=== PATIENT | female | born 1945 | race Caucasian/White ===

== ENCOUNTER → 2017-02-09 | Outpatient (REF) | payer MEDICARE ==
[2017-02-09 16:50] LABS: BASO % 0.8 % (0.0-1.0); EOS # 0.4 K/mm3 (0.0-0.50); EOS % 6.3 % (0.0-3.0); LARGE UNSTAINED CELL # 0.2 K/mm3 (0.0-0.4); LARGE UNSTAINED CELL % 2.5 % (0.0-4.0); LYMPH # 2.1 K/mm3 (1.5-4.5); LYMPH % 31.5 % (24.0-44.0); MEAN CORPUSCULAR HEMOGLOBIN 32.6 pg (27.0-33.0); MEAN CORPUSCULAR HGB CONC 33.6 g/dl (32.0-36.5); MEAN CORPUSCULAR VOLUME 96.9 fl (80.0-96.0); MONO # 0.4 K/mm3 (0.0-0.8); NEUTROPHILS # 3.2 K/mm3 (1.8-7.7); NEUTROPHILS % 51.8 % (36.0-66.0); PLATELET COUNT, AUTOMATED 288 k/mm3 (150-450); RED CELL DISTRIBUTION WIDTH 12.7 % (11.5-14.5); WHITE BLOOD COUNT 6.2 K/mm3 (4.0-10.0)
[2017-02-09 19:04] LABS: ALBUMIN 3.9 GM/DL (3.2-5.2); ALBUMIN/GLOBULIN RATIO 1.5 (1.00-1.93); BILIRUBIN,TOTAL 0.7 MG/DL (0.2-1.0); CALCIUM LEVEL 9.2 MG/DL (8.8-10.2); CREATININE FOR GFR 1.39 MG/DL (0.55-1.02); FREE T4 1.42 NG/DL (0.76-1.46); POTASSIUM SERUM 4.1 MEQ/L (3.5-5.1); TOTAL PROTEIN 6.5 GM/DL (6.4-8.2)
== END ==
LOC: M SFHCCAPE 07:11
PROVIDERS: ATTEND Physician Assistant
DX: E11.9 Type 2 diabetes mellitus without complications (principal); E03.9 Hypothyroidism, unspecified

== ENCOUNTER → 2017-03-09 | Outpatient (REF) | payer MEDICARE ==
[2017-03-09 18:12] LABS: ALBUMIN 3.9 GM/DL (3.2-5.2); ALBUMIN/GLOBULIN RATIO 1.39 (1.00-1.93); BILIRUBIN,TOTAL 0.8 MG/DL (0.2-1.0); CALCIUM LEVEL 9.4 MG/DL (8.8-10.2); CREATININE FOR GFR 1.36 MG/DL (0.55-1.02); POTASSIUM SERUM 3.9 MEQ/L (3.5-5.1); TOTAL PROTEIN 6.7 GM/DL (6.4-8.2)
== END ==
LOC: M SFHCCAPE 09:51
PROVIDERS: ATTEND Physician Assistant
DX: E11.9 Type 2 diabetes mellitus without complications (principal)

== ENCOUNTER → 2017-06-15 | Outpatient (REF) | payer MEDICARE ==
[2017-06-15 18:02] LABS: ALBUMIN 3.9 GM/DL (3.2-5.2); ALBUMIN/GLOBULIN RATIO 1.3 (1.00-1.93); CALCIUM LEVEL 9.9 MG/DL (8.8-10.2); CREATININE FOR GFR 1.37 MG/DL (0.55-1.02); FREE T4 1.33 NG/DL (0.76-1.46); GLOMERULAR FILTRATION RATE 40.7 (>45); POTASSIUM SERUM 4.4 MEQ/L (3.5-5.1); TOTAL PROTEIN 6.9 GM/DL (6.4-8.2)
== END ==
LOC: M SFHCCAPE 07:30
PROVIDERS: ATTEND Physician Assistant
DX: E11.8 Type 2 diabetes mellitus with unspecified complications (principal); E03.9 Hypothyroidism, unspecified; E78.2 Mixed hyperlipidemia

== ENCOUNTER 2017-08-12 18:10 | Emergency (ER) | payer MEDICARE ==
[2017-08-12] MEDS ORDERED: NS 1,000 ML IV ONE (18:30)
[2017-08-12] MEDS ORDERED: ONDANSETRON 4MG/2ML VIAL (J2405) IV ONE (18:30)
[2017-08-12 18:32] LABS: BASO # 0.1 10^3/uL (0.0-0.2); BASO % 0.6 % (0.0-1.0); EOS # 0.4 10^3/uL (0.0-0.50); EOS % 4.6 % (0.0-3.0); IMMATURE GRANULOCYTE % 0.2 % (0-0); LYMPH # 1.9 10^3/uL (1.5-4.5); LYMPH % 20.9 % (24.0-44.0); MEAN CORPUSCULAR HGB CONC 33.4 g/dl (32.0-36.5); MEAN CORPUSCULAR VOLUME 95.7 fl (80.0-96.0); MONO # 0.7 10^3/uL (0.0-0.8); MONO % 7.8 % (0.0-5.0); NEUTROPHILS # 5.8 10^3/uL (1.8-7.7); NEUTROPHILS % 65.9 % (36.0-66.0); PLATELET COUNT, AUTOMATED 270 10^3/uL (150-450); RED CELL DISTRIBUTION WIDTH 13.2 % (11.5-14.5); WHITE BLOOD COUNT 8.9 10^3/uL (4.0-10.0)
[2017-08-12] MEDS ORDERED: LEVO125T4 PO (18:40)
[2017-08-12] MEDS ORDERED: ASPI1TAB PO (18:40)
[2017-08-12] MEDS ORDERED: GLUC500C5 PO (18:40)
[2017-08-12] MEDS ORDERED: CYCL5TAB PO (18:40)
[2017-08-12] MEDS ORDERED: HYDR12.55 PO (18:40)
[2017-08-12] MEDS ORDERED: GLIP-163 PO (18:40)
[2017-08-12] MEDS ORDERED: SIMV40TA2 PO (18:40)
[2017-08-12] MEDS ORDERED: MAGN400C2 PO (18:40)
[2017-08-12] MEDS ORDERED: METF500T13 PO (18:40)
[2017-08-12] MEDS ORDERED: CALC600T57 PO (18:40)
[2017-08-12] MEDS ORDERED: QUIN5TAB7 PO (18:40)
[2017-08-12 18:58] LABS: ALBUMIN 3.6 GM/DL (3.2-5.2); ALBUMIN/GLOBULIN RATIO 1.33 (1.00-1.93); ALKALINE PHOSPHATASE 49 U/L (45-117); ALT/SGPT 28 U/L (12-78); ANION GAP 8 MEQ/L (8-16); AST/SGOT 28 U/L (7-37); BILIRUBIN,DIRECT 0.2 MG/DL (0.0-0.2); BILIRUBIN,TOTAL 0.5 MG/DL (0.2-1.0); BLOOD UREA NITROGEN 24 MG/DL (7-18); CALCIUM LEVEL 8.9 MG/DL (8.8-10.2); CARBON DIOXIDE LEVEL 29 MEQ/L (21-32); CHLORIDE LEVEL 106 MEQ/L (98-107); CREATININE FOR GFR 1.36 MG/DL (0.55-1.02); GLUCOSE, FASTING 198 MG/DL (80-110); POTASSIUM SERUM 3.8 MEQ/L (3.5-5.1); SODIUM LEVEL 143 MEQ/L (136-145); TOTAL PROTEIN 6.3 GM/DL (6.4-8.2)
[2017-08-12 19:12] VITALS: BP 148/74
--- NOTE | 2017-08-13 06:15 | ECGEPIP ---
Stationary ECG Study [facility] - ED Test Date: 2017-08-12 Pat Name: ADA NGUYEN Department: Room: - Gender: F Gynecological Assistant: BUD : 1945 Requested By: WATSON GABRIEL Order Number: [id number] Reading MD: Arnold Acosta Measurements Intervals [place] Rate: 70 P: 42 IN: 205 QRS: 11 QRSD: 94 T: 10 QT: 403 QTc: 435 Interpretive Statements SINUS RHYTHM NO PRIORS FOR COMPARISON Electronically Signed On 08-13-2017 6:15:18 EST by Arnold Acosta
== END 2017-08-12 19:27 | disposition home or self-care (01) ==
LOC: M ED 18:10 → EDBD 18:10 → M ED 19:27
DX: E11.65 Type 2 diabetes mellitus with hyperglycemia (principal); I10 Essential (primary) hypertension; Z79.82 Long term (current) use of aspirin; Z79.52 Long term (current) use of systemic steroids; Z79.899 Other long term (current) drug therapy; Z88.8 Allergy status to other drugs, medicaments and biological substances; Z88.5 Allergy status to narcotic agent; Z88.1 Allergy status to other antibiotic agents; Z88.2 Allergy status to sulfonamides
CPT/HCPCS: 80048; 80076; 82550; 82553; 84443; 84484; 85025; 93005; 93041; 94760; 96374; 99284; J2405

== ENCOUNTER → 2017-09-27 | Outpatient (REF) | payer MEDICARE ==
[2017-09-27 17:05] LABS: BASO # 0.1 10^3/uL (0.0-0.2); BASO % 0.7 % (0.0-1.0); EOS # 0.5 10^3/uL (0.0-0.50); HEMATOCRIT 39.8 % (36.0-47.0); HEMOGLOBIN 13.2 g/dl (12.0-16.0); IMMATURE GRANULOCYTE % 0.3 % (0-0); LYMPH % 26.6 % (24.0-44.0); MEAN CORPUSCULAR HEMOGLOBIN 31.6 pg (27.0-33.0); MEAN CORPUSCULAR HGB CONC 33.2 g/dl (32.0-36.5); MEAN CORPUSCULAR VOLUME 95.2 fl (80.0-96.0); MONO # 0.5 10^3/uL (0.0-0.8); MONO % 7.2 % (0.0-5.0); NEUTROPHILS # 4.4 10^3/uL (1.8-7.7); NEUTROPHILS % 59.2 % (36.0-66.0); PLATELET COUNT, AUTOMATED 317 10^3/uL (150-450); RED BLOOD COUNT 4.18 10^6/uL (4.00-5.40); RED CELL DISTRIBUTION WIDTH 12.6 % (11.5-14.5); WHITE BLOOD COUNT 7.5 10^3/uL (4.0-10.0)
[2017-09-27 17:10] LABS: ALBUMIN 3.9 GM/DL (3.2-5.2); ALKALINE PHOSPHATASE 51 U/L (45-117); ALT/SGPT 22 U/L (12-78); ANION GAP 8 MEQ/L (8-16); AST/SGOT 23 U/L (7-37); BILIRUBIN,TOTAL 0.9 MG/DL (0.2-1.0); BLOOD UREA NITROGEN 23 MG/DL (7-18); CALCIUM LEVEL 9.1 MG/DL (8.8-10.2); CARBON DIOXIDE LEVEL 29 MEQ/L (21-32); CHLORIDE LEVEL 103 MEQ/L (98-107); CHOLESTEROL LEVEL 115 MG/DL (<200); CHOLESTEROL RISK RATIO 2.129 (<5); FREE T4 1.65 NG/DL (0.76-1.46); GLOMERULAR FILTRATION RATE 47.3 (>39); GLUCOSE, FASTING 142 MG/DL (83-110); HDL CHOLESTEROL 54 MG/DL (>40); LDL CHOLESTEROL 39.6 MG/DL (<100); NON-HDL-C 61 MG/DL; POTASSIUM SERUM 4.1 MEQ/L (3.5-5.1); SODIUM LEVEL 140 MEQ/L (136-145); TOTAL PROTEIN 6.9 GM/DL (6.4-8.2); TRIGLYCERIDES LEVEL 107 MG/DL (<150)
[2017-09-27 17:29] LABS: ESTIMATED AVERAGE GLUCOSE 131 MG/DL (60-110); HEMOGLOBIN A1c 6.2 %
[2017-09-27 19:21] LABS: MAU/CREAT RATIO 52.6 MCG/MG (0.0-30.0)
== END ==
LOC: M SFHCCAPE 08:25
DX: I10 Essential (primary) hypertension (principal); E78.2 Mixed hyperlipidemia; E03.9 Hypothyroidism, unspecified; E11.8 Type 2 diabetes mellitus with unspecified complications
CPT/HCPCS: 84443

== ENCOUNTER → 2017-11-17 | Outpatient (REF) | payer MEDICARE ==
[2017-11-17 17:17] LABS: FREE T4 1.09 NG/DL (0.76-1.46)
== END ==
LOC: M SFHCCAPE 08:43
DX: E03.9 Hypothyroidism, unspecified (principal)
CPT/HCPCS: 84443

== ENCOUNTER → 2017-12-27 | Outpatient (REF) | payer MEDICARE ==
[2017-12-27 18:27] LABS: ESTIMATED AVERAGE GLUCOSE 134 MG/DL (60-110); HEMOGLOBIN A1c 6.3 %
[2017-12-27 18:44] LABS: ALBUMIN 3.8 GM/DL (3.2-5.2); ALBUMIN/GLOBULIN RATIO 1.23 (1.00-1.93); ALKALINE PHOSPHATASE 58 U/L (45-117); ALT/SGPT 24 U/L (12-78); ANION GAP 8 MEQ/L (8-16); AST/SGOT 27 U/L (7-37); BILIRUBIN,TOTAL 0.8 MG/DL (0.2-1.0); BLOOD UREA NITROGEN 26 MG/DL (7-18); CALCIUM LEVEL 9.3 MG/DL (8.8-10.2); CARBON DIOXIDE LEVEL 27 MEQ/L (21-32); CHLORIDE LEVEL 109 MEQ/L (98-107); FREE T4 1.25 NG/DL (0.76-1.46); GLOMERULAR FILTRATION RATE 39.6 (>39); GLUCOSE, FASTING 133 MG/DL (70-100); POTASSIUM SERUM 4.5 MEQ/L (3.5-5.1); SODIUM LEVEL 144 MEQ/L (136-145); TOTAL PROTEIN 6.9 GM/DL (6.4-8.2)
== END ==
LOC: M SFHCCAPE 08:39
DX: I10 Essential (primary) hypertension (principal); E03.9 Hypothyroidism, unspecified; E11.8 Type 2 diabetes mellitus with unspecified complications
CPT/HCPCS: 84443

== ENCOUNTER → 2018-07-04 | Outpatient (REF) | payer MEDICARE ==
[2018-07-05 17:12] LABS: BASO # 0.1 10^3/uL (0.0-0.2); BASO % 0.9 % (0.0-1.0); EOS # 0.3 10^3/uL (0.0-0.50); EOS % 5.1 % (0.0-3.0); HEMOGLOBIN 13.8 g/dl (12.0-15.5); IMMATURE GRANULOCYTE % 0.3 % (0-3.0); LYMPH # 2.3 10^3/uL (1.5-4.5); LYMPH % 34.1 % (24.0-44.0); MEAN CORPUSCULAR HEMOGLOBIN 32.1 pg (27.0-33.0); MEAN CORPUSCULAR HGB CONC 32.9 g/dl (32.0-36.5); MEAN CORPUSCULAR VOLUME 97.7 fl (80.0-96.0); MONO # 0.5 10^3/uL (0.0-0.8); NEUTROPHILS # 3.4 10^3/uL (1.8-7.7); NEUTROPHILS % 51.6 % (36.0-66.0); PLATELET COUNT, AUTOMATED 306 10^3/uL (150-450); WHITE BLOOD COUNT 6.6 10^3/uL (4.0-10.0)
[2018-07-05 17:27] LABS: ALBUMIN 3.9 GM/DL (3.2-5.2); ALKALINE PHOSPHATASE 56 U/L (45-117); ALT/SGPT 28 U/L (12-78); ANION GAP 7 MEQ/L (8-16); AST/SGOT 22 U/L (7-37); BILIRUBIN,TOTAL 0.8 MG/DL (0.2-1.0); BLOOD UREA NITROGEN 28 MG/DL (7-18); CALCIUM LEVEL 9.5 MG/DL (8.8-10.2); CARBON DIOXIDE LEVEL 29 MEQ/L (21-32); CHLORIDE LEVEL 106 MEQ/L (98-107); CHOLESTEROL LEVEL 138 MG/DL (<200); CHOLESTEROL RISK RATIO 2.464 (<5); CREATININE FOR GFR 1.39 MG/DL (0.55-1.30); FREE T4 1.14 NG/DL (0.76-1.46); GLOMERULAR FILTRATION RATE 39.9 (>39); GLUCOSE, FASTING 133 MG/DL (70-100); HDL CHOLESTEROL 56 MG/DL (>40); LDL CHOLESTEROL 57 MG/DL (<100); NON-HDL-C 82 MG/DL; POTASSIUM SERUM 4.6 MEQ/L (3.5-5.1); SODIUM LEVEL 142 MEQ/L (136-145); TOTAL PROTEIN 6.9 GM/DL (6.4-8.2); TRIGLYCERIDES LEVEL 124 MG/DL (<150)
[2018-07-05 17:34] LABS: ESTIMATED AVERAGE GLUCOSE 128 MG/DL (60-110); HEMOGLOBIN A1c 6.1 %
== END ==
LOC: M SFHCCAPE 08:29
DX: E03.9 Hypothyroidism, unspecified (principal); I10 Essential (primary) hypertension; E11.8 Type 2 diabetes mellitus with unspecified complications; E78.2 Mixed hyperlipidemia
CPT/HCPCS: 84443

== ENCOUNTER → 2018-07-11 | Outpatient (REF) | payer MEDICARE | LOC: M SFHCCAPE 07-12 07:09 | DX: R19.7 Diarrhea, unspecified (principal) | CPT/HCPCS: 82705 ==

== ENCOUNTER → 2018-07-15 | Outpatient (CLI) | payer MEDICARE ==
[~2018-07-15] MED LIST: GASTROGRAFIN SOLUTION 30ML (Q9963) As Ordered; ISOVUE-370 76% 100ML VIAL (Q9967) As Ordered
== END ==
LOC: M RAD 15:39
DX: R19.7 Diarrhea, unspecified (principal); R10.31 Right lower quadrant pain; N28.1 Cyst of kidney, acquired
CPT/HCPCS: Q9963

== ENCOUNTER → 2018-07-18 | Outpatient (REF) | payer MEDICARE ==
[2018-07-18 16:50] LABS: ALBUMIN 3.8 GM/DL (3.2-5.2); ALBUMIN/GLOBULIN RATIO 1.36 (1.00-1.93); ALKALINE PHOSPHATASE 52 U/L (45-117); ALT/SGPT 32 U/L (12-78); ANION GAP 8 MEQ/L (8-16); AST/SGOT 26 U/L (7-37); BILIRUBIN,TOTAL 0.6 MG/DL (0.2-1.0); BLOOD UREA NITROGEN 23 MG/DL (7-18); CALCIUM LEVEL 9.5 MG/DL (8.8-10.2); CARBON DIOXIDE LEVEL 29 MEQ/L (21-32); CHLORIDE LEVEL 103 MEQ/L (98-107); CREATININE FOR GFR 1.42 MG/DL (0.55-1.30); GLOMERULAR FILTRATION RATE 38.9 (>39); GLUCOSE, FASTING 227 MG/DL (70-100); POTASSIUM SERUM 4.5 MEQ/L (3.5-5.1); SODIUM LEVEL 140 MEQ/L (136-145); TOTAL PROTEIN 6.6 GM/DL (6.4-8.2)
== END ==
LOC: M SFHCCAPE 09:39
DX: N18.3 Chronic kidney disease, stage 3 (moderate) (principal)
CPT/HCPCS: 80053

== ENCOUNTER → 2018-08-01 | Outpatient (CLI) | payer MEDICARE | LOC: M WHC 11:04 | DX: Z12.31 Encounter for screening mammogram for malignant neoplasm of breast (principal) | CPT/HCPCS: 77067 ==

== ENCOUNTER → 2018-10-31 | Outpatient (REF) | payer MEDICARE ==
[~2018-10-31] MED LIST changes: +ASPI1TAB PO; +CALC600T57 PO; +CYCL5TAB PO; -GASTROGRAFIN SOLUTION 30ML (Q9963) As Ordered; +GLIP-163 PO; +GLUC500C5 PO; +HYDR12.55 PO; -ISOVUE-370 76% 100ML VIAL (Q9967) As Ordered; +LEVO125T4 PO; +MAGN400C2 PO; +METF500T13 PO; +QUIN1TAB PO; +SIMV40TA2 PO
[2018-10-31 18:44] LABS: BASO # 0.1 10^3/uL (0.0-0.2); EOS # 0.4 10^3/uL (0.0-0.50); HEMATOCRIT 41.3 % (36.0-47.0); HEMOGLOBIN 13.5 g/dl (12.0-15.5); LYMPH % 34.7 % (24.0-44.0); MEAN CORPUSCULAR HEMOGLOBIN 32.1 pg (27.0-33.0); MEAN CORPUSCULAR HGB CONC 32.7 g/dl (32.0-36.5); MEAN CORPUSCULAR VOLUME 98.3 fl (80.0-96.0); MONO # 0.5 10^3/uL (0.0-0.8); MONO % 8.2 % (0.0-5.0); NEUTROPHILS # 2.8 10^3/uL (1.8-7.7); NEUTROPHILS % 48.9 % (36.0-66.0); PLATELET COUNT, AUTOMATED 279 10^3/uL (150-450); WHITE BLOOD COUNT 5.8 10^3/uL (4.0-10.0)
[2018-10-31 18:51] LABS: ALBUMIN 3.8 GM/DL (3.2-5.2); BILIRUBIN,TOTAL 0.8 MG/DL (0.2-1.0); CALCIUM LEVEL 9.2 MG/DL (8.8-10.2); CREATININE FOR GFR 1.33 MG/DL (0.55-1.30); GLOMERULAR FILTRATION RATE 41.9 (>39); POTASSIUM SERUM 4.2 MEQ/L (3.5-5.1); TOTAL PROTEIN 6.7 GM/DL (6.4-8.2)
== END ==
LOC: M SFHCCAPE 08:38
PROVIDERS: ATTEND Physician Assistant
DX: R19.7 Diarrhea, unspecified (principal)

== ENCOUNTER → 2019-02-06 | Outpatient (REF) | payer MEDICARE ==
[~2019-02-06] MED LIST changes: -ASPI1TAB PO; +ASPI81TA26 PO
[2019-02-06 18:45] LABS: BASO # 0.1 10^3/uL (0.0-0.2); BASO % 0.9 % (0.0-1.0); EOS # 0.7 10^3/uL (0.0-0.50); EOS % 8.6 % (0.0-3.0); HEMATOCRIT 41.3 % (36.0-47.0); HEMOGLOBIN 13.6 g/dl (12.0-15.5); LYMPH # 2.2 10^3/uL (1.5-4.5); LYMPH % 28.2 % (24.0-44.0); MEAN CORPUSCULAR HEMOGLOBIN 31.9 pg (27.0-33.0); MEAN CORPUSCULAR HGB CONC 32.9 g/dl (32.0-36.5); MEAN CORPUSCULAR VOLUME 96.9 fl (80.0-96.0); MONO # 0.6 10^3/uL (0.0-0.8); MONO % 7.2 % (0.0-5.0); NEUTROPHILS # 4.3 10^3/uL (1.8-7.7); NEUTROPHILS % 54.8 % (36.0-66.0); PLATELET COUNT, AUTOMATED 305 10^3/uL (150-450); RED BLOOD COUNT 4.26 10^6/uL (4.00-5.40); WHITE BLOOD COUNT 7.8 10^3/uL (4.0-10.0)
[2019-02-06 19:40] LABS: CREATININE, URINE 76.7 MG/DL; MALB URINE SIEMENS 20.5 MG/L; MAU/CREAT RATIO 26.7 MCG/MG (0.0-30.0)
[2019-02-06 20:25] LABS: ALBUMIN 3.8 GM/DL (3.2-5.2); BILIRUBIN,TOTAL 0.8 MG/DL (0.2-1.0); CALCIUM LEVEL 8.9 MG/DL (8.8-10.2); CHOLESTEROL RISK RATIO 2.678 (<5); CREATININE FOR GFR 1.31 MG/DL (0.55-1.30); FREE T4 1.03 NG/DL (0.76-1.46); GLOMERULAR FILTRATION RATE 42.6 (>39); POTASSIUM SERUM 4.2 MEQ/L (3.5-5.1); THYROID STIMULATING HORMONE 5.31 uIU/ML (0.358-3.740); TOTAL PROTEIN 7.2 GM/DL (6.4-8.2)
[2019-02-06 21:59] LABS: HEMOGLOBIN A1c 6.7 %
== END ==
LOC: M SFHCCAPE 08:29
PROVIDERS: ATTEND Physician Assistant
DX: E03.9 Hypothyroidism, unspecified (principal); E78.2 Mixed hyperlipidemia; E11.8 Type 2 diabetes mellitus with unspecified complications

== ENCOUNTER → 2019-04-10 | Outpatient (REF) | payer MEDICARE ==
[2019-04-10 16:59] LABS: BASO # 0.1 10^3/uL (0.0-0.2); EOS # 0.6 10^3/uL (0.0-0.50); EOS % 9.2 % (0.0-3.0); HEMATOCRIT 42.3 % (36.0-47.0); HEMOGLOBIN 14.1 g/dl (12.0-15.5); LYMPH # 2.2 10^3/uL (1.5-4.5); LYMPH % 30.9 % (24.0-44.0); MEAN CORPUSCULAR HEMOGLOBIN 32.9 pg (27.0-33.0); MEAN CORPUSCULAR HGB CONC 33.3 g/dl (32.0-36.5); MEAN CORPUSCULAR VOLUME 98.8 fl (80.0-96.0); MONO # 0.5 10^3/uL (0.0-0.8); MONO % 7.6 % (0.0-5.0); NEUTROPHILS # 3.5 10^3/uL (1.8-7.7); PLATELET COUNT, AUTOMATED 270 10^3/uL (150-450); RED BLOOD COUNT 4.28 10^6/uL (4.00-5.40)
[2019-04-10 17:06] LABS: ALBUMIN 3.8 GM/DL (3.2-5.2); BILIRUBIN,TOTAL 0.9 MG/DL (0.2-1.0); CALCIUM LEVEL 9.2 MG/DL (8.8-10.2); CHOLESTEROL RISK RATIO 2.563 (<5); CREATININE FOR GFR 1.4 MG/DL (0.55-1.30); FREE T4 1.17 NG/DL (0.76-1.46); GLOMERULAR FILTRATION RATE 39.5 (>39); POTASSIUM SERUM 4.3 MEQ/L (3.5-5.1); THYROID STIMULATING HORMONE 5.12 uIU/ML (0.358-3.740); TOTAL PROTEIN 6.9 GM/DL (6.4-8.2)
[2019-04-10 17:23] LABS: HEMOGLOBIN A1c 6.5 %
[2019-04-10 17:32] LABS: MALB URINE SIEMENS 34.2 MG/L; MAU/CREAT RATIO 28.2 MCG/MG (0.0-30.0)
== END ==
LOC: M SFHCCAPE 08:37
PROVIDERS: ATTEND Physician Assistant
DX: I10 Essential (primary) hypertension (principal); E03.9 Hypothyroidism, unspecified; E11.8 Type 2 diabetes mellitus with unspecified complications

== ENCOUNTER → 2019-04-19 | Outpatient (CLI) | payer MEDICARE ==
--- NOTE | 2019-04-19 14:31 | REP ---
Clinical: Acute bronchitis Comparison: 09/03/2010 . Technique: PA and lateral. Findings: The mediastinum and cardiac silhouette are normal. The lung rodriguez are clear and without acute consolidation, effusion, or pneumothorax. The skeletal structures are intact and normal. Impression: 1. No focal consolidation or effusion.
== END ==
LOC: M CLY 14:08
PROVIDERS: ATTEND Physician Assistant
DX: J40 Bronchitis, not specified as acute or chronic (principal)

== ENCOUNTER → 2019-07-17 | Outpatient (REF) | payer MEDICARE ==
[2019-07-17 16:44] LABS: ALBUMIN 3.8 GM/DL (3.2-5.2); BILIRUBIN,TOTAL 0.8 MG/DL (0.2-1.0); CALCIUM LEVEL 9.2 MG/DL (8.8-10.2); CREATININE FOR GFR 1.45 MG/DL (0.55-1.30); FREE T4 1.26 NG/DL (0.76-1.46); GLOMERULAR FILTRATION RATE 37.9 (>39); POTASSIUM SERUM 4.1 MEQ/L (3.5-5.1); THYROID STIMULATING HORMONE 2.81 uIU/ML (0.358-3.740); TOTAL PROTEIN 6.6 GM/DL (6.4-8.2)
[2019-07-17 16:53] LABS: HEMOGLOBIN A1c 6.9 %
== END ==
LOC: M SFHCCAPE 08:30
PROVIDERS: ATTEND Physician Assistant
DX: I10 Essential (primary) hypertension (principal); E03.9 Hypothyroidism, unspecified; E11.8 Type 2 diabetes mellitus with unspecified complications

== ENCOUNTER → 2019-08-31 | Outpatient (CLI) | payer MEDICARE ==
[~2019-08-31] MED LIST changes: -SIMV40TA2 PO; +SIMV40TA20 PO
== END ==
LOC: M WHC 11:30
PROVIDERS: ATTEND Physician Assistant
DX: Z78.0 Asymptomatic menopausal state (principal)

== ENCOUNTER → 2019-08-31 | Outpatient (CLI) | payer MEDICARE ==
--- NOTE | 2019-08-31 12:38 | REPMRS ---
Patient History The patient states she had a clinical breast exam in February 2019. No known family history of cancer. 3D TOMOSYNTHESIS WAS PERFORMED. The [facility] lifetime risk for breast cancer is 3.9%. Digital Woman Screen Mammo: August 31, 2019 - Exam #: [id number] Bilateral CC and MLO view(s) were taken. Technologist: Katie Gaxiola, Technologist Prior study comparison: August 01, 2018, bilateral digital woman screen mammo performed at [facility]. July 27, 2017, digital woman screen mammo performed at [facility]. FINDINGS: There are scattered fibroglandular densities. There has been no change in the appearance of the mammogram from the prior studies. There is a mild amount of residual fibroglandular tissue which is fairly symmetric. There is no interval development of dominant mass, architectural distortion, or clustered microcalcification suggestive of malignancy. Assessment: BI-RADS/ACR category 1 mammogram. Negative Mammogram. Recommendation Routine screening mammogram in 1 year (for women over age 40). This mammogram was interpreted with the aid of an FDA-approved computer-aided dectection system. Electronically Signed By: Case Angel MD 08/31/19 1310
== END ==
LOC: M WHC 11:18
PROVIDERS: ATTEND Obstetrics & Gynecology
DX: Z12.31 Encounter for screening mammogram for malignant neoplasm of breast (principal)

== ENCOUNTER → 2019-10-09 | Outpatient (CLI) | payer MEDICARE ==
--- NOTE | 2019-10-09 12:24 | REP ---
Chest x-ray: Two views. History: Cough. Comparison chest x-ray: April 19, 2019. Findings: Lungs are well inflated and free of infiltrate. Pleural angles are sharp. Heart size is normal. The thoracic aorta is calcific. There is a minimal broad dextroconvex curve in the thoracic spine and discogenic spurring is seen. Impression: No active disease. Electronically Signed by Mariusz Reid MD 10/09/2019 12:16 P
== END ==
LOC: M CLY 11:36
PROVIDERS: ATTEND Nurse Practitioner Family
DX: R05 Cough (principal)

== ENCOUNTER → 2019-10-30 | Outpatient (REF) | payer MEDICARE ==
[2019-10-30 16:50] LABS: ALBUMIN 3.9 GM/DL (3.2-5.2); BILIRUBIN,TOTAL 1.1 MG/DL (0.2-1.0); CALCIUM LEVEL 9.6 MG/DL (8.8-10.2); CHOLESTEROL RISK RATIO 2.911 (<5); CREATININE FOR GFR 1.6 MG/DL (0.55-1.30); FREE T4 1.36 NG/DL (0.76-1.46); GLOMERULAR FILTRATION RATE 33.7 (>39); POTASSIUM SERUM 3.9 MEQ/L (3.5-5.1); THYROID STIMULATING HORMONE 2.98 uIU/ML (0.358-3.740); TOTAL PROTEIN 6.8 GM/DL (6.4-8.2)
[2019-10-30 18:16] LABS: HEMOGLOBIN A1c 7.4 %
== END ==
LOC: M SFHCCAPE 08:49
PROVIDERS: ATTEND Physician Assistant
DX: I10 Essential (primary) hypertension (principal); E03.9 Hypothyroidism, unspecified; E11.8 Type 2 diabetes mellitus with unspecified complications; E78.2 Mixed hyperlipidemia

== ENCOUNTER → 2020-01-05 | Outpatient (REF) | payer MEDICARE | LOC: M LAB REF 16:10 | PROVIDERS: ATTEND Internal Medicine Pulmonary Disease | DX: R05 Cough (principal) ==

== ENCOUNTER → 2020-01-11 | Outpatient (CLI) | payer MEDICARE ==
--- NOTE | 2020-01-11 14:38 | REP ---
CT CHEST WITHOUT IV CONTRAST: CT chest performed without IV contrast. There are no prior studies for comparison. Sagittal and coronal reconstruction images are performed. There are subcentimeter nodular opacities bilaterally. Approximately eight are identified scattered throughout the right lung with a maximum diameter of 5 mm. There are five identified in the left lung. The largest is in the upper lobe somewhat centrally along the bronchus, image 39, this has somewhat irregular margins that measures 8 mm maximally. No consolidation is seen in either lung. There are mild interstitial fibrotic changes bilaterally. No axillary adenopathy is seen. There is mild mediastinal adenopathy. The largest mediastinal lymph node is in the right paratracheal region and measures 1.2 cm in short axis. Several other smaller lymph nodes are seen throughout the mediastinum. The heart is normal in size. There is no pleural or pericardial effusion. A partially imaged cyst is seen in the upper pole of the left kidney. There are degenerative changes of the spine. IMPRESSION: Multiple subcentimeter nodular opacities bilaterally. Eight are identified in the right lung with a maximum diameter of 5 mm. Five are identified in the left lung. The most worrisome is in the left upper lobe along a bronchiole on image 39. This demonstrates mildly irregular borders and has a maximum diameter of 8 mm. There is mild mediastinal adenopathy. Recommend pulmonary consultation and followup CT in 3 months. Electronically Signed by Case Angel MD 01/11/2020 02:47 P
== END ==
LOC: M RAD 12:56
PROVIDERS: ATTEND Family Medicine
DX: R91.8 Other nonspecific abnormal finding of lung field (principal); R05 Cough; R63.4 Abnormal weight loss

== ENCOUNTER → 2020-01-12 | Outpatient (REF) | payer MEDICARE ==
[2020-01-12 18:04] LABS: BASO # 0.1 10^3/uL (0.0-0.2); BASO % 0.8 % (0.0-1.0); EOS # 0.5 10^3/uL (0.0-0.5); EOS % 4.9 % (0.0-3.0); HEMATOCRIT 44.6 % (36.0-47.0); LYMPH # 1.9 10^3/uL (1.5-5.0); LYMPH % 17.3 % (24.0-44.0); MEAN CORPUSCULAR HEMOGLOBIN 34.5 pg (27.0-33.0); MEAN CORPUSCULAR HGB CONC 35.9 g/dl (32.0-36.5); MEAN CORPUSCULAR VOLUME 96.1 fl (80.0-96.0); MONO # 0.8 10^3/uL (0.0-0.8); MONO % 7.2 % (0.0-5.0); NEUTROPHILS # 7.5 10^3/uL (1.5-8.5); NEUTROPHILS % 69.4 % (36.0-66.0); PLATELET COUNT, AUTOMATED 349 10^3/uL (150-450); RED BLOOD COUNT 4.64 10^6/uL (4.00-5.40); WHITE BLOOD COUNT 10.8 10^3/uL (4.0-10.0)
[2020-01-12 18:30] LABS: BILIRUBIN,DIRECT 0.2 MG/DL (0.0-0.2); BILIRUBIN,TOTAL 0.8 MG/DL (0.2-1.0); CALCIUM LEVEL 9.9 MG/DL (8.8-10.2); CREATININE FOR GFR 1.85 MG/DL (0.55-1.30); GLOMERULAR FILTRATION RATE 28.5 (>39); TOTAL PROTEIN 7.3 GM/DL (6.4-8.2)
== END ==
LOC: M LAB REF 16:44
PROVIDERS: ATTEND Internal Medicine Pulmonary Disease
DX: Z01.812 Encounter for preprocedural laboratory examination (principal); R91.8 Other nonspecific abnormal finding of lung field

== ENCOUNTER → 2020-01-15 | Outpatient (REF) | payer MEDICARE ==
[2020-01-15 16:48] LABS: PLATELET COUNT, AUTOMATED 288 10^3/uL (150-450)
[2020-01-15 16:52] LABS: INR 1.07; PROTHROMBIN TIME 13.6 SECONDS (11.8-14.0)
[2020-01-15 16:53] LABS: PARTIAL THROMBOPLASTIN TIME 29.2 SECONDS (25.0-38.4)
== END ==
LOC: M LABDRAWC 15:45
PROVIDERS: ATTEND Internal Medicine Pulmonary Disease
DX: Z01.812 Encounter for preprocedural laboratory examination (principal); Z79.01 Long term (current) use of anticoagulants

== ENCOUNTER → 2020-01-22 | Outpatient (CLI) | payer MEDICARE ==
[~2020-01-22] MED LIST changes: +ADVA230A INH; +AMLO25TA PO; +FAMO20TA PO; +FLON1SPR; +GLUC1CAP10 PO; +IPRA6SP; +LEVO137T2 PO; +LORA-436 PO; +MAGO400T2 PO; +TELM1TAB35 PO; +VENTAER INH
== END ==
LOC: M LABSMTC 11:45
PROVIDERS: ATTEND Anesthesiology
DX: Z11.59 Encounter for screening for other viral diseases (principal)

== ENCOUNTER 2020-01-24 06:52 | Day surgery (SDC) | payer MEDICARE ==
[~2020-01-24] VITALS: Ht 157.5 cm; Wt 102.1 kg
[~2020-01-24 06:52] MED LIST changes: +LIDOCAINE 1% MDV 20ML VIAL SQ PRN
[2020-01-24] MEDS ORDERED: LR 1,000 ML IV ONE (07:00)
[2020-01-24] MEDS ORDERED: LIDOCAINE 1% MDV 20ML VIAL As Ordered ONE (08:26)
[2020-01-24] MEDS ORDERED: THROMBIN SOLN 5,000 UNITS VIAL As Ordered ONE (08:26)
[2020-01-24] MEDS ORDERED: LIDOCAINE VISCOUS 2% SOLN 15ML UDC As Ordered ONE (08:27)
[2020-01-24] MEDS ORDERED: EPINEPHrine 1MG/10ML SYRINGE 1.5IN As Ordered ONE (08:27)
[2020-01-24] MEDS ORDERED: CETACAINE SPRAY 5GM As Ordered ONE (08:27)
[2020-01-24] MEDS ORDERED: fentaNYL 100 MCG/2 ML INJECTION (J3010) As Ordered ONE (08:41)
[2020-01-24] MEDS ORDERED: ONDANSETRON 4MG/2ML VIAL As Ordered ONE (08:42)
[2020-01-24] MEDS ORDERED: MIDAZOLAM INJ 2MG/2ML VIAL (J2250 PER 1MG) As Ordered ONE (08:42)
[2020-01-24] MEDS ORDERED: propofoL 200 MG/20 ML VIAL As Ordered ONE (08:42)
[2020-01-24] MEDS ORDERED: dexameTHASONE 4 MG/ML 1ML VIAL (J1100 PER 1MG) As Ordered ONE (08:42)
[2020-01-24] MEDS ORDERED: ROCURONIUM BROMIDE 50 MG/5 ML VIAL As Ordered ONE (08:42)
[2020-01-24] MEDS ORDERED: LIDOCAINE 2% 100MG/5ML SDV (FOR ANES.) As Ordered ONE (08:42)
[2020-01-24] MEDS ORDERED: ePHEDrine SULFATE 25 MG/5 ML(5MG/ML) SYRINGE As Ordered ONE (09:24)
[2020-01-24] MEDS ORDERED: SUGAMMADEX SODIUM 500 MG/5 ML VIAL (BRIDION) As Ordered ONE (09:25)
[2020-01-24] MEDS ORDERED: IPRATROPIUM 0.5MG/ALBUTEROL 2.5MG INH SOL UD 3ML (DUONEB)(J7620) As Ordered ONE (10:02)
[2020-01-24] MEDS ORDERED: ONDANSETRON 4MG/2ML VIAL IV PRN (10:15)
[2020-01-24] MEDS ORDERED: LR 1,000 ML IV SCH (10:15)
[2020-01-24] MEDS ORDERED: fentaNYL 100 MCG/2 ML INJECTION (J3010) IV PRN (10:15)
[2020-01-24] MEDS ORDERED: ALBUTEROL SULFATE 2.5 MG/0.5 ML INH NEB SOLN INH ONE (10:15)
--- NOTE | 2020-01-24 10:16 | RO ---
DATE OF PROCEDURE: 01/24/2020 PREOPERATIVE DIAGNOSIS: Abnormal chest CT, lymph node enlargement, multiple pulmonary nodules. POSTOPERATIVE DIAGNOSIS: Abnormal chest CT, lymph node enlargement, multiple pulmonary nodules. FINDINGS: Large approximately 1 cm subcarinal node under endobronchial ultrasound. PROCEDURE: Bronchoscopy with endobronchial ultrasound, fine needle aspiration (FNA), sarcoid bronch protocol. SURGEON: Dr. Radames Tolliver CAREER AND TRANSITION TEACHER: No assistant infant toddler teacher. ANESTHESIA: General. ESTIMATED BLOOD LOSS: No estimated blood loss. DRAINS: No drains. SPECIMENS OBTAINED: 1. Transbronchial biopsies of the right upper lobe, right middle lobe, right lower lobe. 2. Subcarinal FNA 3. Right upper lobe bronchoalveolar lavage (BAL) for culture and sensitivities, Gram stain, AFB and culture, fungal and culture, and cell count. DESCRIPTION OF PROCEDURE: After informed consent was reviewed with the patient in the preoperative area, she was brought back to operating room (OR) #8. General anesthesia was initiated with an 8.5 endotracheal tube and the case was handed over to me. A time out was then performed with two patient identifiers, identifying correct site and correct procedure. Cetacaine spray was then used to anesthetize the airway. Bronchoscope was then inserted. The trachea was normal. The trachea was midline. The christiano was fairly sharp. Right and left mainstem bronchi were normal. Right upper lobe had anatomic variation with five airways - two apical airways, one posterior, two anterior. I then entered the bronchus intermedius. The right middle lobe was also normal with minimal amounts of mucus. RB 4-10 was normal without endobronchial lesions. The bronchoscope was then was removed and inserted into the left mainstem bronchus. All airways were inspected. There was minimal amounts of mucus. No significant crypt formation. No nodularity of the airway. LB 1-10 was normal without endobronchial lesion. Then retracted my bronchoscope and placed it in the right upper lobe. I then performed transbronchial biopsies of the apical and anterior basal segment of the right lower lobe and lateral basal segment of the right lower lobe. After transbronchial biopsies were obtained, hemostasis was assured and the 1T180 bronchoscope was removed and a bronchial ultrasound was inserted. I viewed the subcarinal space finding the largest view of the subcarinal node from the left mainstem approach. The subcarinal node was just barely over 1 cm. It did have a central vessel. A fine needle aspiration was performed with adequate sampling for cell block. After adequate sampling was performed, the endobronchial ultrasound was removed. The 1T180 bronchoscope was then inserted. All airways were suctioned. I then went up into the right upper lobe most anterior segment and performed a bronchoalveolar lavage with a total of 60 mL with a return of 40 mL. After this was completed, the bronchoscope was removed. Hemostasis assured. The case was handed back over to anesthesia. The patient extubated and currently in recovery. A postprocedure chest x-ray is pending.
--- NOTE | 2020-01-24 10:33 | REP ---
C-ARM VIEWS CHEST: Multiple C-arm views of the chest performed during manipulation of a bronchoscope. 1 minute 40 seconds of fluoroscopy time utilized. Electronically Signed by Case Angel MD 01/24/2020 10:54 A
[2020-01-24 10:45] LABS: SOURCE RIGHT UPPER LOBE
[2020-01-24 10:46] LABS: APPEARANCE CLOUDY (CLEAR); COLOR RED (COLORLESS)
--- NOTE | 2020-01-24 11:00 | REP ---
CHEST, SINGLE VIEW: Single view of the chest is performed. No pneumothorax or infiltrate is seen. The heart is normal in size. There is mild calcification of the thoracic aorta. Mediastinal silhouette is unremarkable. IMPRESSION: No pneumothorax or acute infiltrate. Electronically Signed by Case nAgel MD 01/24/2020 12:32 P
[2020-01-24 11:20] VITALS: BP 160/72
--- NOTE | 2020-01-25 20:27 | ECGEPIP ---
[facility] Test Date: 2020-01-24 Pat Name: ADA NGUYEN Department: Room: - Gender: Female Cutter Machine Tender: : 1945 Requested By: Amandeep Michel Order Number: [id number] Reading MD: Cuate Santo Measurements Intervals [place] Rate: 85 P: 22 MS: 190 QRS: -5 QRSD: 94 T: 11 QT: 389 QTc: 464 Interpretive Statements SINUS RHYTHM MINIMAL ST DEPRESSION. Probably artifactual Prior tracing on 08/12/2017 at 18:32. Heart rate then was slower otherwise unremarkable Electronically Signed on 01-25-2020 20:26:47 EDT by Cuate Santo
== END 2020-01-24 12:30 | disposition home or self-care (01) ==
LOC: M SDC 06:52
PROVIDERS: ATTEND Internal Medicine Pulmonary Disease
DX: R91.8 Other nonspecific abnormal finding of lung field (principal); R05 Cough; R59.0 Localized enlarged lymph nodes; R94.2 Abnormal results of pulmonary function studies; I12.9 Hypertensive chronic kidney disease with stage 1 through stage 4 chronic kidney disease, or unspecified chronic kidney disease; E78.5 Hyperlipidemia, unspecified; E11.9 Type 2 diabetes mellitus without complications; E03.9 Hypothyroidism, unspecified; K21.9 Gastro-esophageal reflux disease without esophagitis; J45.909 Unspecified asthma, uncomplicated; Z79.82 Long term (current) use of aspirin; Z79.84 Long term (current) use of oral hypoglycemic drugs; N18.9 Chronic kidney disease, unspecified; E66.9 Obesity, unspecified; Z88.5 Allergy status to narcotic agent; Z88.1 Allergy status to other antibiotic agents; Z88.2 Allergy status to sulfonamides; Z88.8 Allergy status to other drugs, medicaments and biological substances; Z79.899 Other long term (current) drug therapy
CPT/HCPCS: 31624; 31628; 31632; 31652; 71045; 76000; 87070; 87102; 87116; 87205; 87206; 88173; 88305; 88312; 93005; J1100; J2250; J2405; J3010

== ENCOUNTER → 2020-04-29 | Outpatient (REF) | payer MEDICARE ==
[~2020-04-29] MED LIST changes: -LIDOCAINE 1% MDV 20ML VIAL SQ PRN
[2020-05-29 14:27] LABS: BASO # 0.1 10^3/uL (0.0-0.2); BASO % 0.8 % (0.0-1.0); EOS # 0.3 10^3/uL (0.0-0.5); EOS % 4.5 % (0.0-3.0); HEMATOCRIT 40.5 % (36.0-47.0); HEMOGLOBIN 13.2 g/dl (12.0-15.5); LYMPH # 1.9 10^3/uL (1.5-5.0); LYMPH % 25.6 % (24.0-44.0); MEAN CORPUSCULAR HEMOGLOBIN 32.4 pg (27.0-33.0); MEAN CORPUSCULAR HGB CONC 32.6 g/dl (32.0-36.5); MEAN CORPUSCULAR VOLUME 99.3 fl (80.0-96.0); MONO # 0.7 10^3/uL (0.0-0.8); MONO % 8.8 % (0.0-5.0); NEUTROPHILS # 4.5 10^3/uL (1.5-8.5); PLATELET COUNT, AUTOMATED 264 10^3/uL (150-450); RED BLOOD COUNT 4.08 10^6/uL (4.00-5.40); WHITE BLOOD COUNT 7.5 10^3/uL (4.0-10.0)
[2020-07-18 08:30] LABS: ALBUMIN 3.9 GM/DL (3.2-5.2); BILIRUBIN,TOTAL 0.7 MG/DL (0.2-1.0); CALCIUM LEVEL 9.3 MG/DL (8.8-10.2); CHOLESTEROL RISK RATIO 2.755 (<5); CREATININE FOR GFR 1.81 MG/DL (0.55-1.30); FREE T4 1.19 NG/DL (0.76-1.46); GLOMERULAR FILTRATION RATE 29.3 (>39); HEMOGLOBIN A1c 6.2 %; MALB URINE SIEMENS 6.8 MG/L; POTASSIUM SERUM 4.4 MEQ/L (3.5-5.1); THYROID STIMULATING HORMONE 3.39 uIU/ML (0.358-3.740); TOTAL 25(OH) VITAMIN D 46.5 NG/ML (30.0-100.0); TOTAL PROTEIN 6.5 GM/DL (6.4-8.2)
== END ==
LOC: M LABDRAWC 08:30
PROVIDERS: ATTEND Physician Assistant
DX: I12.9 Hypertensive chronic kidney disease with stage 1 through stage 4 chronic kidney disease, or unspecified chronic kidney disease (principal); E11.8 Type 2 diabetes mellitus with unspecified complications; E03.9 Hypothyroidism, unspecified; D86.9 Sarcoidosis, unspecified; N18.3 Chronic kidney disease, stage 3 (moderate); E78.2 Mixed hyperlipidemia

== ENCOUNTER → 2020-07-22 | Outpatient (REF) | payer MEDICARE ==
[2020-07-22 11:43] LABS: BASO % 0.5 % (0.0-1.0); EOS # 0.4 10^3/uL (0.0-0.5); EOS % 4.9 % (0.0-3.0); HEMATOCRIT 39.7 % (36.0-47.0); HEMOGLOBIN 12.7 g/dl (12.0-15.5); LYMPH # 2.1 10^3/uL (1.5-5.0); MEAN CORPUSCULAR HEMOGLOBIN 31.7 pg (27.0-33.0); MONO # 0.8 10^3/uL (0.0-0.8); MONO % 10.1 % (0.0-5.0); NEUTROPHILS # 4.3 10^3/uL (1.5-8.5); PLATELET COUNT, AUTOMATED 282 10^3/uL (150-450); RED BLOOD COUNT 4.01 10^6/uL (4.00-5.40); WHITE BLOOD COUNT 7.6 10^3/uL (4.0-10.0)
[2020-07-22 12:18] LABS: HEMOGLOBIN A1c 6.3 %
[2020-07-22 12:29] LABS: ALBUMIN 3.8 GM/DL (3.2-5.2); BILIRUBIN,TOTAL 0.8 MG/DL (0.2-1.0); CALCIUM LEVEL 9.6 MG/DL (8.8-10.2); CHOLESTEROL RISK RATIO 2.615 (<5); CREATININE FOR GFR 1.69 MG/DL (0.55-1.30); FREE T4 1.17 NG/DL (0.76-1.46); GLOMERULAR FILTRATION RATE 31.7 (>39); POTASSIUM SERUM 4.5 MEQ/L (3.5-5.1); THYROID STIMULATING HORMONE 3.86 uIU/ML (0.358-3.740); TOTAL PROTEIN 6.8 GM/DL (6.4-8.2)
== END ==
LOC: M SFHCCLAY 08:16
PROVIDERS: ATTEND Physician Assistant
DX: E11.8 Type 2 diabetes mellitus with unspecified complications (principal); E03.9 Hypothyroidism, unspecified

== ENCOUNTER → 2020-08-13 | Outpatient (CLI) | payer MEDICARE ==
--- NOTE | 2020-08-13 10:25 | REPMRS ---
Patient History The patient states she had a clinical breast exam in July 2020. No known family history of cancer. 3D TOMOSYNTHESIS WAS PERFORMED. The [facility] lifetime risk for breast cancer is 3.7%. Volpara breast density a. Digital Woman Screen Mammo: August 13, 2020 - Exam #: [id number] Bilateral CC and MLO view(s) were taken. Technologist: Gris Goodrich, Technologist Prior study comparison: August 31, 2019, bilateral digital woman screen mammo performed at [facility]. August 01, 2018, bilateral digital woman screen mammo performed at [facility]. FINDINGS: There are scattered fibroglandular densities. There has been no change in the appearance of the mammogram from the prior studies. There is a mild amount of residual fibroglandular tissue which is fairly symmetric. There is no interval development of dominant mass, architectural distortion, or clustered microcalcification suggestive of malignancy. Assessment: BI-RADS/ACR category 1 mammogram. Negative Mammogram. Recommendation Routine screening mammogram in 1 year (for women over age 40). This mammogram was interpreted with the aid of an FDA-approved computer-aided dectection system. Electronically Signed By: Case Angel MD 08/13/20 1024
== END ==
LOC: M WHC 08:52
PROVIDERS: ATTEND Physician Assistant
DX: Z12.31 Encounter for screening mammogram for malignant neoplasm of breast (principal)

== ENCOUNTER 2020-10-03 11:42 | Emergency (ER) | payer MEDICARE ==
[~2020-10-03] VITALS: Ht 157.5 cm; Wt 106.2 kg
[~2020-10-03 11:42] MED LIST changes: -LORA-436 PO; +LORA-930 PO
--- OUTSIDE RECORDS SUMMARY | 2020-10-03 11:51 | CCD ---
Author Author [facility] Organization [facility] Address Unknown Phone Unavailable Care Team Providers Care Gas Stove Servicer Helper Name Role Phone Megan San Unavailable PROBLEMS Type Condition ICD9-CM Code TLR67-UG Code Onset Dates Condition S tatus SNOMED Code Notes Problem Chronic low back pain M54.5 Active 658223728 Problem Essential hypertension I10 Active 45473139 Problem Hx of cataract extraction Z98.49 Active 203085 004 Problem Diabetes mellitus with complication in adult patient E11.8 Active 41222082 Problem Hypothyroid E03.9 Active 22055273 Problem Seasonal allergies J30.2 Active 595368279 Problem Osteoarthritis M19.90 Active 770461607 Problem Sarcoidosis D86.9 Active 38954773 Problem Mixed hyperlipidemia E78.2 Active 749811240 Problem Chronic kidney disease, stage 3 (moderate) N18.3 Active 224710369 Problem Type II or unspecified type diabetes mellitus without mention of complication, not stated as uncontrolled E11.9 Active 109480563 Problem Stage 3 chronic kidney disease N18.3 Active 4 98781106 Problem Seasonal allergic rhinitis, unspecified trigger J3 0.2 Active 788612032 ALLERGIES Allergen (clinical drug ingredient) Drug/Non Drug Allergy do cumented on EMR Reaction Allergy Type Onset Date Status Darvocet-N 100 headache Drug Allergy Active Amoxicillin-Pot Clavulanate Diarrhea Drug Allergy Active sulfamethoxazole / trimethoprim Bactrim DS(ND Code:[address]-2 1) Vomit Drug Allergy Active codeine Codeine Sulfate(NDC Code:[address]-43) Vomit Drug Al lergy Active erythromycin Erythromycin(NDC Code:[address]-97) Hives Drug All ergy Active ENCOUNTERS from 1945 to 2020-08-19 Encounter Location Date Provider Diagnosis [facility] [address] Jul Megan San Sarcoidosis D86.9 ; Diabetes mellitus wi th complication in adult patient E11.8 ; Immunization not carried out because of patient refusal Z28.21 ; Hypothyroid E03.9 ; Mixed hyperlipidemia E78.2 ; Postmenopausal Z78.0 ; Essential hypertension I10 ; Breast cancer screening by mammogram Z12.31 and Encounter for vaccination Z23 IMMUNIZATIONS Vaccine Route Administration Date Status Influenza (High Dose 65 & up) IM Intramuscular Jun 21, 2017 A dministered Influenza (High Dose 65 & up) IM Intramuscular Jul 08, 2016 A dministered Influenza (Pharmacy Given) Unknown Jun 23, 2020 Admin istered Influenza (High Dose 65 & up) IM Intramuscular Jun 27, 2015 A dministered Pneumococcal Adult 0.5mL (Pneumovax 23) IM Intramuscular Jul 25, 2020 Administered TDAP 0.5mL (Boostrix) IM Intramuscular February 09, 2017 Administe red Influenza (18 yrs & older) Flublok IM Intramuscular Jun 28, 2018 Administered Pneumococcal 0.5mL (Prevnar 13) IM Intramuscular February 09, 2017 Administered Influenza (18 yrs & older) Flublok IM Intramuscular Jul 13, 2019 Administered Influenza (6mo & up) Fluzone IM Intramuscular Jul 04, 2014 Ad ministered Influenza (6mo & up) Fluzone IM Intramuscular Jun 19, 2013 Ad ministered SOCIAL HISTORY Tobacco Use: Social History Observation Description Date Details (start date - stop date) Never Smoker Sex Assigned At : Social History Observation Description Sex Assigned At Unknown Audit Question Answer Notes Total Score: 0 Interpretation: Alcohol Education Drug and Alcohol Question Answer Notes Total Score: 0 Interpretation: No problems reported Alcohol Screening: Question Answer Notes Did you have a drink containing alcohol in the past year? No Points 0 Interpretation Negative BMI Care Goal Follow-Up Question Answer Notes Above Normal BMI Follow-Up Dietary management educatio n, guidance, and counseling, Exercise promotion: strength training Tobacco Use: Question Answer Notes Are you a: never smoker REASON FOR REFERRAL No Information VITAL SIGNS Weight 232 lbs lbs Jul, Height 62" in Jul, BMI 42.43 kg/m2 Jul, Heart Rate 76 /min Jul, Respiratory Rate 18 /min Jul, Temperature 98.3 degrees Fahrenheit Jul, Oximetry 99%ra Jul, Blood pressure systolic 131 mm Hg Jul, Blood pressure diastolic 81 mm Hg Jul, MEDICATIONS Medication SIG (Take, Route, Frequency, Duration) Notes Start Da te End Date Status Hydrochlorothiazide 25 mg TAKE 1 TABLET BY MOUTH ONCE A DAY Active Simvastatin 20 MG TAKE 1 TABLET BY MOUTH ONCE EVERY DAY DIRECTED Active Ventolin HFA 108 (90 Base) MCG/ACT 2 puffs as needed Inhalation johnathan ry 6 hrs Active Synthroid 150 MCG 1 tablet on an empty stomach in the morning Orally Once a day for 30 Days Active Aspirin 81 81 MG 1 tablet Orally Once a day Active Lancets Misc. - as directed bid E11.8 for 90 days Nov, Active Tradjenta 5 MG 1 tablet Orally Once a day for 90 day(s) Active Advair HFA 230-21 MCG/ACT 2 puffs Inhalation Twice a day Active Magnesium 200 MG 2 tablets with a meal Orally three times daily Active Claritin 10 MG 1 tablet Orally Once a day for 90 day(s) Mar, Active Simvastatin 20 MG TAKE 1 TABLET BY MOUTH ONCE EVERY DAY DIRECTED for 90 Active AmLODIPine Besylate 2.5 MG 1 tablet Orally Once a day Active Blood Glucose Test - as directed In Vitro bid E11.8 for 90 Active Hydrochlorothiazide 25 mg TAKE 1 TABLET BY MOUTH ONCE A DAY for 90 Active Calcium 500 MG 1 tablet with meals Orally Once a day Active GlipiZIDE ER 5 MG 1 tab Orally Daily Active Fluticasone Propionate 50 MCG/ACT 1 spray in each nostril Nasall y Once a day Mar, Active Glucosamine 750 MG Orally Active Telmisartan 40 MG 1 tablet Orally Once a day Active PROCEDURES Procedure Date Ordered Result Body Site Immunization: Pneumovax 23 0.5mL IM (Pneumococcal) 2020-07-25 N/A RESULTS No Results REASON FOR VISIT 3 mo f/u MEDICAL (GENERAL) HISTORY Type Description Date Medical History Diabetes mellitus Medical History Hypertension Medical History Hypercholesterolemia Medical History Osteoarthritis Medical History Chronic Renal Disease-Followed by Nephro maximilian Medical History hypothyroidism Medical History Sarcoidosis-Dr. Tolliver-Pulmonology Surgical History D&C Surgical History Exploratory lap Surgical History Tonsillectomy Surgical History Cataract surgery Surgical History biopsy of lungs Hospitalization History for surgeries Goals Section No Information Health Concerns No Information MEDICAL EQUIPMENT No Information MENTAL STATUS No Information FUNCTIONAL STATUS No Information ASSESSMENTS Encounter Date Diagnosis Assessment Notes Treatment Notes Treatm ent Clinical Notes Jul, Sarcoidosis (ICD-10 - D86.9) Sarcoidosis material was printed Patient education was given. Discussed potential complications of sarcoidosis. Patient following with ENT, pulmonology, nephrology. Follow-up scheduled with pulmonology September 2020. 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 She does feel her cough has significantly improved. Continue medications as recommended by pulmonology. Recommend up-to-date with routine eyecare with ophthalmology and annual EKG. Continue to monitor for skin involvement. Discussed warning signs and symptoms a seek immediate medical attention for. Patient reports understanding and is in agreement with plan. Jul, Diabetes mellitus with compl ication in adult patient (ICD-10 - E11.8) Discussed potential medication adjustments including adding GLP-1. Patient reports that she is not interested in injectable. I carefully reviewed the importance of tight glucose control with the patient. I explained the long-term complications of poorly controlled diabetes - including (but not limited to) kidney failure, coronary artery disease, vision loss, loss of limb, chronic infection. Target A1c of <7.0% (or <6.5%) was discussed. Need to adhere to recommendation for at least annual opthalmology evaluation, recommended vaccinations. DIABETES - CARE PLAN/SELF MANAGEMENT: Your hemoglobin A1c today is: BELOW 7% This should be 7% or less, for some people it is more appropriate reduce this to 6.5% or less. You ARE NOT meeting treatment goals for your diabetes. It is important to continue with a diet that is low in simple sugars, and get some form of exercise most days of the week. Please continue the medications listed above, implement any changes recommended by your provider. A dilated retinal exam with an neckties painter should be performed annually, foot exams should be performed at each of your follow-up appointments, for most people this is every 3 months. Continue to monitor your blood glucose as directed, record these numbers in a log, be sure to bring this to each of your appointments. Jul, Immunization not carried out because of patient refusal (ICD-10 - Z28.21) Jul, Hypothyroid (ICD-10 - E03.9) Mildly elevated TSH. FT4 WNL TSH within normal limits. Will continue to monitor closely. Weight gain, fatigue, dry skin. Will increase syntrhoid. Discussed warning signs and symptoms a seek immediate medical attention for. Patient reports understanding and is agreement with plan Jul, Mixed hyperlipidemia (ICD-10 - E78.2) Jul, Postmenopausal (ICD-10 - Z78.0) Jul, Essential hypertension (ICD-10 - I10) Jul, Breast cancer screening by mammogram (ICD-10 - Z 12.31) Patient reports that [facility] She was given the number and advised to contact our office if she is any difficulty scheduling this. Jul, Encounter for vaccination (ICD-10 - Z23) Patient Educated with: PPSV23 [id number] (PPSV23 [id number].pdf) PLAN OF TREATMENT Medication Medication Name Sig Start Date Stop Date Synthroid 150 MCG 1 tablet on an empty stomach in the morning Orally Once a day for 30 Days Advair HFA 230-21 MCG/ACT 2 puffs Inhalation Twice a day GlipiZIDE ER 5 MG 1 tab Orally Daily AmLODIPine Besylate 2.5 MG 1 tablet Orally Once a day Tradjenta 5 MG 1 tablet Orally Once a day for 90 day(s) Ventolin HFA 108 (90 Base) MCG/ACT 2 puffs as needed Inhalation every 6 hrs Simvastatin 20 MG TAKE 1 TABLET BY MOUTH ONCE EVERY DAY DIREC [facility] Telmisartan 40 MG 1 tablet Orally Once a day Aspirin 81 81 MG 1 tablet Orally Once a day Hydrochlorothiazide 25 mg TAKE 1 TABLET BY MOUTH ONCE A DAY Treatment Notes Assessment Notes Clinical Notes Sarcoidosis Sarcoidosis material was printed Patient education was given. Discussed potential complications of sarcoidosis. Patient following with ENT, pulmonology, nephrology. Follow-up scheduled with pulmonology September 2020. 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 She does feel her cough has significantly improved. Continue medications as recommended by pulmonology. Recommend up-to-date with routine eyecare with ophthalmology and annual EKG. Continue to monitor for skin involvement. Discussed warning signs and symptoms a seek immediate medical attention for. Patient reports understanding and is in agreement with plan. Diabetes mellitus with complication in adult patient Discussed potential medication adjustments including adding GLP-1. Patient reports that she is not interested in injectable. I carefully reviewed the importance of tight glucose control with the patient. I explained the long-term complications of poorly controlled diabetes - including (but not limited to) kidney failure, coronary artery disease, vision loss, loss of limb, chronic infection. Target A1c of <7.0% (or <6.5%) was discussed. Need to adhere to recommendation for at least annual opthalmology evaluation, recommended vaccinations. DIABETES - CARE PLAN/SELF MANAGEMENT: Your hemoglobin A1c today is: BELOW 7% This should be 7% or less, for some people it is more appropriate reduce this to 6.5% or less. You ARE NOT meeting treatment goals for your diabetes. It is important to continue w ith a diet that is low in simple sugars, and get some form of exercise most days of the week. Please continue the medications listed above, implement any changes recommended by your provider. A dilated retinal exam with an neckties painter should be performed annually, foot exams should be performed at each of your follow-up appointments, for most people this is every 3 months. Continue to monitor your blood glucose as directed, record these numbers in a log, be sure to bring this to each of your appointments. Hypothyroid Mildly elevated TSH. FT4 WNL TSH within normal limits. Will continue to monitor closely. Weight gain, fatigue, dry skin. Will increase syntrhoid. Discussed warning signs and symptoms a seek immediate medical attention for. Patient reports understanding and is agreement with plan Breast cancer screening by mammogram Patria cooney reports that she [facility] She was given the number and advised to contact our office if she is any difficulty scheduling thi s. Encounter for vaccination Patient Educated with: PPSV2 3 [id number] (PPSV23 [id number]) Treatment Notes Test Name Order Date DIGITAL MAMMO SCREENING BILAT 2020-08-19 Future Test Test Name Order Date HEMOGLOBIN A1c 70293710 Comprehensive Metabolic Profile (CMP) [id number] CBC with Differential 20201025 LIPID PANEL (CARDIAC RISK) [id number] FREE T4 & TSH PANEL 20201025 FREE T4 & TSH PANEL 20200905 Next Appt Details 3 Months, prn Reason: Provider Name:Megan San, 2020-11 10:30:00 AM, [address] [place], [address], Insurance Providers Payer Name Payer Address Payer Phone Insured Name Patient Relati onship to Insured Coverage Start Date Coverage End Date AETNA MEDICARE A[employer] [place]ANCE [employer] [address] [facility] [phone] ADA NGUYEN self
--- OUTSIDE RECORDS SUMMARY | 2020-10-03 11:51 | CCD ---
Author Author [facility] Organization [facility] Address Unknown Phone Unavailable Care Team Providers Care Pharmaceutical Botanist Name Role Phone Megan San Unavailable PROBLEMS Type Condition ICD9-CM Code [id number] Code Onset Dates Condition S tatus SNOMED Code Notes Problem Chronic low back pain M54.5 Active 728247092 Problem Essential hypertension I10 Active 59847235 Problem Hx of cataract extraction Z98.49 Active 492388 004 Problem Diabetes mellitus with complication in adult patient E11.8 Active 52142077 Problem Hypothyroid E03.9 Active 64147769 Problem Seasonal allergies J30.2 Active 909908250 Problem Osteoarthritis M19.90 Active 609417930 Problem Sarcoidosis D86.9 Active 61443481 Problem Mixed hyperlipidemia E78.2 Active 574552403 Problem Chronic kidney disease, stage 3 (moderate) N18.3 Active 944493510 Problem Type II or unspecified type diabetes mellitus without mention of complication, not stated as uncontrolled E11.9 Active 104802987 Problem Stage 3 chronic kidney disease N18.3 Active 4 05242794 Problem Seasonal allergic rhinitis, unspecified trigger J3 0.2 Active 981729336 ALLERGIES Allergen (clinical drug ingredient) Drug/Non Drug Allergy do cumented on EMR Reaction Allergy Type Onset Date Status Darvocet-N 100 headache Drug Allergy Active Amoxicillin-Pot Clavulanate Diarrhea Drug Allergy Active sulfamethoxazole / trimethoprim Bactrim DS(ND Code:[address]-4 1) Vomit Drug Allergy Active codeine Codeine Sulfate(NDC Code:[address]-69) Vomit Drug Al lergy Active erythromycin Erythromycin(NDC Code:[address]-76) Hives Drug All ergy Active ENCOUNTERS from 1945 to 2020-08-29 Encounter Location Date Provider Diagnosis [facility] [place] [address] Jul Megan San Sarcoidosis D86.9 ; Diabetes mellitus wi th complication in adult patient E11.8 ; Immunization not carried out because of patient refusal Z28.21 ; Hypothyroid E03.9 ; Mixed hyperlipidemia E78.2 ; Postmenopausal Z78.0 ; Essential hypertension I10 ; Breast cancer screening by mammogram Z12.31 and Encounter for vaccination Z23 IMMUNIZATIONS Vaccine Route Administration Date Status Influenza (18 yrs & older) Flublok IM Intramuscular Jun 28, 2018 Administered Influenza (High Dose 65 & up) IM Intramuscular Jun 21, 2017 A dministered Influenza (High Dose 65 & up) IM Intramuscular Jul 08, 2016 A dministered Influenza (High Dose 65 & up) IM Intramuscular Jun 27, 2015 A dministered Influenza (Pharmacy Given) Unknown Jun 23, 2020 Admin istered TDAP 0.5mL (Boostrix) IM Intramuscular February 09, 2017 Administe red Influenza (18 yrs & older) Flublok IM Intramuscular Jul 13, 2019 Administered Pneumococcal 0.5mL (Prevnar 13) IM Intramuscular February 09, 2017 Administered Pneumococcal Adult 0.5mL (Pneumovax 23) IM Intramuscular Jul 25, 2020 Administered Influenza (6mo & up) Fluzone IM [...] tablet Orally Once a day Active PROCEDURES from 1945 to 2020-08-29 Procedure Date Ordered Result Body Site Immunization: Pneumovax 23 0.5mL IM (Pneumococcal) 2020-07-25 N/A RESULTS Component Value Reference Range DIGITAL MAMMO SCREENING BILAT Reviewed date:08/29/2020 07:50:53 Interpretation: Performing Lab:[facility] [place], [place] [address] REASON FOR VISIT 3 mo f/u MEDICAL (GENERAL) HISTORY Type Description Date Medical History Diabetes mellitus Medical History Hypertension Medical History Hypercholesterolemia Medical History Osteoarthritis Medical History Chronic Renal Disease-Followed by Nephro logy Medical History hypothyroidism Medical History Sarcoidosis-Dr. Tolliver-Pulmonology [...] September 2020. 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 She does feel [...] provider. A dilated retinal exam with an elementary school director should be performed annually, foot exams should [...] she will schedule this mammogram herself at [facility]. She was given the number and advised to contact our office if she is any difficulty scheduling this. Jul, Encounter for vaccination (ICD-10 - Z23) Patient Educated with: PPSV23 [id number] (PPSV23 [id number]) PLAN OF TREATMENT Medication Medication Name Sig [...] September 2020. 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 She does feel [...] provider. A dilated retinal exam with an elementary school director should be performed annually, foot exams should [...] for vaccination Patient Educated with: PPSV2 3 [id number] (PPSV23 [id number]) Future Test Test Name Order Date HEMOGLOBIN A1c 20201025 Comprehensive Metabolic Profile (CMP) 20201025 CBC with Differential 20201025 LIPID PANEL (CARDIAC RISK) 20201025 FREE T4 & TSH PANEL 20201025 FREE T4 & TSH PANEL 20200905 Next Appt Details 3 Months, prn Reason: Provider Name:Megan San, 2020-11 10:30:00 AM, [address], [place], [address], Insurance Providers Payer Name Payer Address Payer Phone Insured Name Patient Relati onship to Insured Coverage Start Date Coverage End Date AETNA MEDICARE A[employer] INSURANCE [employer] [address] [facility] [phone] ADA NGUYEN self
--- OUTSIDE RECORDS SUMMARY | 2020-10-03 11:52 | CCD ---
Author Author [facility] Organization [facility] Address Unknown Phone Unavailable Care Team Providers Care Intelligence Director Name Role Phone Megan San Unavailable PROBLEMS Type Condition ICD9-CM Code [id number] Code Onset Dates Condition S tatus SNOMED Code Notes Problem Chronic low back pain M54.5 Active 850190599 Problem Essential hypertension I10 Active 28070454 Problem Hx of cataract extraction Z98.49 Active 132576 004 Problem Diabetes mellitus with complication in adult patient E11.8 Active 51185337 Problem Hypothyroid E03.9 Active 27696658 Problem Seasonal allergies J30.2 Active 236005857 Problem Osteoarthritis M19.90 Active 029291768 Problem Sarcoidosis D86.9 Active 87203945 Problem Mixed hyperlipidemia E78.2 Active 632911361 Problem Chronic kidney disease, stage 3 (moderate) N18.3 Active 287270308 Problem Type II or unspecified type diabetes mellitus without mention of complication, not stated as uncontrolled E11.9 Active 721429900 Problem Stage 3 chronic kidney disease N18.3 Active 4 35697676 Problem Seasonal allergic rhinitis, unspecified trigger J3 0.2 Active 434255937 ALLERGIES Allergen (clinical drug ingredient) Drug/Non Drug Allergy do cumented on EMR Reaction Allergy Type Onset Date Status Darvocet-N 100 headache Drug Allergy Active Amoxicillin-Pot Clavulanate Diarrhea Drug Allergy Active sulfamethoxazole / trimethoprim Bactrim DS(ND Code:[address]-9 1) Vomit Drug Allergy Active codeine Codeine Sulfate(NDC Code:[address]-92) Vomit Drug Al lergy Active erythromycin Erythromycin(NDC Code:[address]-05) Hives Drug All ergy Active ENCOUNTERS from 1945 to 2020-08-06 Encounter Location Date Provider Diagnosis [facility] [place] [address] 13 Jul Megan San IMMUNIZATIONS Vaccine Route Administration Date Status Influenza [...] IM Intramuscular February 09, 2017 Administered Influenza (Pharmacy Given) Unknown Jun 23, 2020 Admin istered Influenza (6mo & up) Fluzone IM Intramuscular [...] REASON FOR REFERRAL No Information VITAL SIGNS No information MEDICATIONS Medication SIG (Take, Route, Frequency, Duration) [...] tablet Orally Once a day Active PROCEDURES No Information RESULTS No Results REASON FOR VISIT medication MEDICAL (GENERAL) HISTORY Type Description Date Medical History Diabetes mellitus Medical History Hypertension Medical History Hypercholesterolemia Medical History Osteoarthritis Medical History Chronic Renal Disease-Followed by Nephwilly yao Medical History hypothyroidism Medical History Sarcoidosis-Dr. Tolliver-Pulmonology Surgical History D&C Surgical History Exploratory lap Surgical History Tonsillectomy Surgical History Cataract surgery Surgical History biopsy of lungs Hospitalization History for surgeries Goals Section No Information Health Concerns No Information MEDICAL EQUIPMENT No Information MENTAL STATUS No Information FUNCTIONAL STATUS No Information ASSESSMENTS No Information PLAN OF TREATMENT Medication Medication Name Sig [...] 1 TABLET BY MOUTH ONCE A DAY Next Appt Details Provider Name:Megan San, 2020-11 10:30:00 AM, [address], [place], [address], Insurance Providers Payer Name Payer Address Payer Phone Insured Name Patient Relati onship to Insured Coverage Start Date Coverage End Date AETNA MEDICARE AETNA [employer] INSURANCE [employer] [address] [facility] [id number] ADA NGUYEN self
--- OUTSIDE RECORDS SUMMARY | 2020-10-03 11:52 | CCD ---
Author Author [facility] Organization [facility] Address Unknown Phone Unavailable Care Team Providers Care Embedded Systems Software Engineer Name Role Phone Megan San Unavailable PROBLEMS Type Condition ICD9-CM Code [id number] Code Onset Dates Condition S tatus SNOMED Code Notes Problem Chronic low back pain M54.5 Active 638921551 Problem Essential hypertension I10 Active 94137468 Problem Hx of cataract extraction Z98.49 Active 135239 004 Problem Diabetes mellitus with complication in adult patient E11.8 Active 08606907 Problem Hypothyroid E03.9 Active 05082427 Problem Seasonal allergies J30.2 Active 352489907 Problem Osteoarthritis M19.90 Active 173298732 Problem Sarcoidosis D86.9 Active 91586930 Problem Mixed hyperlipidemia E78.2 Active 250873307 Problem Chronic kidney disease, stage 3 (moderate) N18.3 Active 199901639 Problem Type II or unspecified type diabetes mellitus without mention of complication, not stated as uncontrolled E11.9 Active 056641771 Problem Stage 3 chronic kidney disease N18.3 Active 4 92209269 Problem Seasonal allergic rhinitis, unspecified trigger J3 0.2 Active 069617954 ALLERGIES Allergen (clinical drug ingredient) Drug/Non Drug Allergy do cumented on EMR Reaction Allergy Type Onset Date Status Darvocet-N 100 headache Drug Allergy Active Amoxicillin-Pot Clavulanate Diarrhea Drug Allergy Active sulfamethoxazole / trimethoprim Bactrim DS(ND Code:[address]-4 1) Vomit Drug Allergy Active codeine Codeine Sulfate(NDC Code:[address]-33) Vomit Drug Al lergy Active erythromycin Erythromycin(NDC Code:[address]-07) Hives Drug All ergy Active ENCOUNTERS from 1945 to 2020-08-06 Encounter Location Date Provider Diagnosis [facility] [place] [address] Jul Megan San Hypothyroid E03.9 IMMUNIZATIONS Vaccine Route Administration Date Status Influenza [...] Information RESULTS No Results REASON FOR VISIT script issue MEDICAL (GENERAL) HISTORY Type Description Date Medical [...] Treatment Notes Treatm ent Clinical Notes Jul, Hypothyroid (ICD-10 - E03.9) PLAN OF TREATMENT Medication Medication Name Sig [...] Details Provider Name:Megan San, 2020-11 10:30:00 AM, [address], [place], [address], Insurance Providers Payer Name Payer Address Payer Phone Insured Name Patient Relati onship to Insured Coverage Start Date Coverage End Date AETNA MEDICARE AETNA [employer] [address] [facility] [phone] ADA NGUYEN self
--- OUTSIDE RECORDS SUMMARY | 2020-10-03 11:52 | CCD ---
Author Author [facility] Organization [facility] Address Unknown Phone Unavailable Care Team Providers Care Rack Carrier Name Role Phone Megan San Unavailable PROBLEMS Type Condition ICD9-CM Code [id number] Code Onset Dates Condition S tatus SNOMED Code Notes Problem Chronic low back pain M54.5 Active 363400342 Problem Essential hypertension I10 Active 70808606 Problem Hx of cataract extraction Z98.49 Active 866247 004 Problem Diabetes mellitus with complication in adult patient E11.8 Active 94258793 Problem Hypothyroid E03.9 Active 62947079 Problem Seasonal allergies J30.2 Active 714540457 Problem Osteoarthritis M19.90 Active 709323649 Problem Sarcoidosis D86.9 Active 79120676 Problem Mixed hyperlipidemia E78.2 Active 214147912 Problem Chronic kidney disease, stage 3 (moderate) N18.3 Active 315359899 Problem Type II or unspecified type diabetes mellitus without mention of complication, not stated as uncontrolled E11.9 Active 253108464 Problem Stage 3 chronic kidney disease N18.3 Active 4 16241070 Problem Seasonal allergic rhinitis, unspecified trigger J3 0.2 Active 954207869 ALLERGIES Allergen (clinical drug ingredient) Drug/Non Drug Allergy do cumented on EMR Reaction Allergy Type Onset Date Status Darvocet-N 100 headache Drug Allergy Active Amoxicillin-Pot Clavulanate Diarrhea Drug Allergy Active sulfamethoxazole / trimethoprim Bactrim DS(ND Code:[address]-1 1) Vomit Drug Allergy Active codeine Codeine Sulfate(NDC Code:[address]-79) Vomit Drug Al lergy Active erythromycin Erythromycin(NDC Code:[address]-30) Hives Drug All ergy Active ENCOUNTERS from 1945 to 2020-08-12 Encounter Location Date Provider Diagnosis [facility] [place] [address] 11 Jul Megan San IMMUNIZATIONS Vaccine Route Administration [...] Information RESULTS No Results REASON FOR VISIT call from provider MEDICAL (GENERAL) HISTORY Type Description Date Medical [...] Name:Megan San, 2020-11 10:30:00 AM, [address] , [place], [address], Insurance Providers Payer Name Payer Address Payer Phone Insured Name Patient Relati onship to Insured Coverage Start Date Coverage End Date AETNA MEDICARE A[employer] INSURANCE [employer] [address] [facility] [id number] ADA NGUYEN self
--- OUTSIDE RECORDS SUMMARY | 2020-10-03 11:53 | CCD ---
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 Role Phone Bran NARANJO MD Unavailable Unavailable Bran NARANJO MD Unavailable Unavailable Bran NARANJO MD Unavailable Unavailable Bran NARANJO MD Unavailable Unavailable Bran NARANJO MD Unavailable Unavailable Bran NARANJO MD Unavailable Unavailable rBan NARANJO MD Unavailable Unavailable Bran NARANJO MD Unavailable Unavailable Bran NARANJO MD Unavailable Unavailable Bran NARANJO MD Unavailable Unavailable Bran NARANJO MD Unavailable Unavailable Bran NARANJO MD Unavailable Unavailable Bran NARANJO MD Unavailable Unavailable Bran NARANJO MD Unavailable Unavailable Bran NARANJO MD Unavailable Unavailable Bran NARANJO MD Unavailable Unavailable Bran NARANJO MD Unavailable Unavailable Bran NARANJO MD Unavailable Unavailable Bran NARANJO MD Unavailable Unavailable Bran NARANJO MD Unavailable Unavailable Bran NARANJO MD Unavailable Unavailable Bran NARANJO MD Unavailable Unavailable Bran NARANJO MD Unavailable Unavailable Bran NARANJO MD Unavailable Unavailable Bran NARANJO MD Unavailable Unavailable Bran NARANJO MD Unavailable Unavailable Bran NARANJO MD Unavailable Unavailable Bran NARANJO MD Unavailable Unavailable Bran NARANJO MD Unavailable Unavailable Bran NARANJO MD Unavailable Unavailable Bran NARANJO MD Unavailable Unavailable Bran NARANJO MD Unavailable Unavailable DARRIN, Bran MERINO MD Unavailable Unavailable DARRIN, Bran MERINO MD Unavailable Unavailable DARRIN, Bran MERINO MD Unavailable Unavailable SEARS, A ANIKET DO Unavailable Unavailable SEARS, A ANIKET DO Unavailable Unavailable SEARS, A ANIKET DO Unavailable Unavailable SEARS, A ANIKET DO Unavailable Unavailable SEARS, A ANIKET DO Unavailable Unavailable SEARS, A ANIKET DO Unavailable Unavailable SEARS, A ANIKET DO Unavailable Unavailable SEARS, A ANIKET DO Unavailable Unavailable SEARS, A ANIKET DO Unavailable Unavailable SEARS, A ANIKET DO Unavailable Unavailable SEARS, A ANIKET DO Unavailable Unavailable SEARS, A ANIKET DO Unavailable Unavailable SEARS, A ANIKET DO Unavailable Unavailable SEARS, A ANIKET DO Unavailable Unavailable SEARS, A ANIKET DO Unavailable Unavailable SEARS, A ANIKET DO Unavailable Unavailable SEARS, A ANIKET DO Unavailable Unavailable SEARS, A ANIKET DO Unavailable Unavailable SEARS, A ANIKET DO Unavailable Unavailable SEARS, A ANIKET DO Unavailable Unavailable SEARS, A ANIKET DO Unavailable Unavailable SEARS, A ANIKET DO Unavailable Unavailable SEARS, A ANIKET DO Unavailable Unavailable SEARS, A ANIKET DO Unavailable Unavailable SEARS, A ANIKET DO Unavailable Unavailable SEARS, A ANIKET DO Unavailable Unavailable SEARS, A ANIKET DO Unavailable Unavailable SEARS, A ANIKET DO Unavailable Unavailable SEARS, A ANIKET DO Unavailable Unavailable SEARS, A ANIKET DO Unavailable Unavailable SEARS, A ANIKET DO Unavailable Unavailable SEARS, A ANIKET DO Unavailable Unavailable SEARS, A ANIKET DO Unavailable Unavailable SEARS, A ANIKET DO Unavailable Unavailable SEARS, A ANIKET DO Unavailable Unavailable SEARS, A ANIKET DO Unavailable Unavailable SEARS, A ANIKET DO Unavailable Unavailable SEARS, A ANIKET DO Unavailable Unavailable SEARS, A ANIKET DO Unavailable Unavailable SEARS, A ANIKET DO Unavailable Unavailable SEARS, A ANIKET DO Unavailable Unavailable SEARS, A ANIKET DO Unavailable Unavailable SEARS, A ANIKET DO Unavailable Unavailable SEARS, A ANIKET DO Unavailable Unavailable SEARS, A ANIKET DO Unavailable Unavailable Re-disclosure Warning The records that you are about to access may contain information from federally-assisted alcohol or drug abuse programs. If such information is present, then the following federally mandated warning applies: This information has been disclosed to you from records protected by federal confidentiality rules (42 CFR part 2). The federal rules prohibit you from making any further disclosure of this information unless further disclosure is expressly permitted by the written consent of the person to whom it pertains or as otherwise permitted by 42 CFR part 2. A general authorization for the release of medical or other information is NOT sufficient for this purpose. The Federal rules restrict any use of the information to criminally investigate or prosecute any alcohol or drug abuse patient.The records that you are about to access may contain highly sensitive health information, the redisclosure of which is protected by Article 27-F of the [facility] Public Health law. If you continue you may have access to information: Regarding HIV / AIDS; Provided by facilities licensed or operated by the [facility] Office of Mental Health; or Provided by the [facility] Office for People With Developmental Disabilities. If such information is present, then the following [facility] mandated warning applies: This information has been disclosed to you from confidential records which are protected by state law. State law prohibits you from making any further disclosure of this information without the specific written consent of the person to whom it pertains, or as otherwise permitted by law. Any unauthorized further disclosure in violation of state law may result in a fine or senior living sentence or both. A general authorization for the release of medical or other information is NOT sufficient authorization for further disc losure. Allergies and Adverse Reactions Type Description Substance Reaction Status Data Source(s ) codeine Codeine Sulfate Codeine Vomit Active eCW1 ([facility]) Drug allergy Bactrim DS sulfamethoxazole / trimethoprim Vomit Ac tive eCW1 ([facility]) Darvocet-N 100 Darvocet-N 100 Darvocet-N 100 headache Active eC W1 ([facility]) Erythromycin Erythromycin Erythromycin 500 MG Delayed Rele ase Oral Tablet Hives Active eCW1 ([facility]) Amoxicillin-Pot Clavulanate Amoxicillin-Pot Clavulanate Amox icillin-Pot Clavulanate Diarrhea Active eCW1 ([facility]) Darvocet-N 100 Darvocet-N 100 Darvocet-N 100 headache Active eC W1 ([facility]) Amoxicillin-Pot Clavulanate Amoxicillin-Pot Clavulanate Amox icillin-Pot Clavulanate Diarrhea Active eCW1 ([facility]) Codeine Sulfate Codeine Sulfate Codeine Sulfate Vomit Active eCW1 ([facility]) Darvocet-N 100 Darvocet-N 100 Darvocet-N 100 headache Active eC W1 ([facility]) Amoxicillin-Pot Clavulanate Amoxicillin-Pot Clavulanate Amox icillin-Pot Clavulanate Diarrhea Active eCW1 ([facility]) Family History Family Member Name Family Member Gender Family Member Status Date o f Status Description Data Source(s) Unknown Unknown 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) Encounters Encounter Providers Location Date Indications Data Source(s ) [place] [address] [facility] [address] 08/06/2020 12:00:00 AM EST eCW1 ([facility]) [place] [address] [facility] [place] [address] 08/02/2020 12:00:00 AM EST eCW1 ([facility]) [place] [address] [facility] [address] 07/31/2020 12:00:00 AM EST eCW1 ([facility]) [place]patient [address] [facility] [place] [address] 07/25/2020 12:00:00 AM EST eCW1 ([facility]) [place] [address] [facility] [place] [address] 06/25/2020 12:00:00 AM EDT eCW1 ([facility]) Outpatient Attender: ANIKET Roldan/Tesfaye/Darian/Reindl 05/08/2020 03:00:00 PM EDT [facility] [place] [address] [address] 05/01/2020 12:00:00 AM EDT eCW1 ([facility]) Unknown [address] [facility] [place] [address] 04/03/2020 12:00:00 AM EDT eCW1 [facility] Outpatient Attender: ANGELIQUE Naranjo/Tesfaye/Darian/Reind l 02/19/2020 01:45:00 PM EDT [facility] [place] [address] [facility] [address] 02/08/2020 12:00:00 AM EDT [facility] [place] [address] [place] [address] 02/05/2020 12:00:00 AM EDT eCW1 [facility] Outpatient 02/04/2020 07:18:00 AM EDT [facility] [place] [address] [place] [phone] 02/02/2020 12:00:00 AM EDT eCW1 [facility] Outpatient Attender: ANIKET Roldan/Morris/Darian/Reindl 02/01/2020 10:00:00 AM EDT [facility] [place] [address] [place] [phone] 01/25/2020 12:00:00 AM EDT eCW1 [facility] Outpatient 01/23/2020 04:56:00 AM EDT [facility] Outpatient Attender: ANIKET Roldan/Morris/Darian/Reindl 01/12/2020 11:30:00 AM EDT [facility] [place] [address] [place] [phone] 01/11/2020 12:00:00 AM EDT eCW1 [facility] [place] [address] [place] [phone] 01/02/2020 12:00:00 AM EDT eCW1 [facility] [place] [address] [place] [phone] 12/25/2019 12:00:00 AM EDT eCW1 [facility] [place] [address] [place] [address] [place] [address] 12/25/2019 12:00:00 AM EDT eCW1 ([facility]) Outpatient Attender: ANIKET Roldan/Tesfaye/Darian/Jaz 12/12/2019 08:30:00 AM EDT MEDENT ([facility] [address] [address] 12/11/2019 12:00:00 AM EDT eCW1 ([facility]) [facility] [address] [facility] [address] 12/11/2019 12:00:00 AM EDT eCW1 ([facility]) [facility] [place] [address] [place] [phone] 11/30/2019 12:00:00 AM EDT eCW1 ([facility]) [facility] [place] [address] [place] [address] 11/13/2019 12:00:00 AM EST eCW1 ([facility]) [facility] [place] [address] [place] [address], [place] [address] 11/07/2019 12:00:00 AM EST eCW1 ([facility]) [facility] [place] [address] [place] [address] 11/06/2019 12:00:00 AM EST eCW1 ([facility]) [facility] [place] [address] [place] [phone] 11/01/2019 12:00:00 AM EST eCW1 ([facility]) [facility] [place] [address] [place] [phone] 11/01/2019 12:00:00 AM EST eCW1 ([facility]) [facility] [place] [address] [place] [phone] 10/30/2019 12:00:00 AM EST eCW1 ([facility]) [facility] [place] [address] [place] [phone] 10/24/2019 12:00:00 AM EST eCW1 ([facility]) Outpatient 10/13/2019 01:45:00 PM EST [facility] [place] [address], [facility] [place] [address] 10/10/2019 12:00:00 AM EST eCW1 ([facility]) [facility] [place] [address] [place] [phone] 10/09/2019 12:00:00 AM EST eCW1 ([facility]) [facility] [place] [address] [place] [phone] 10/02/2019 12:00:00 AM EST eCW1 ([facility]) [facility] [place] [address] [place] [phone] 09/21/2019 12:00:00 AM EST eCW1 ([facility]) Outpatient 09/19/2019 05:23:00 AM EST [facility] [place] [address] [place] [phone] 08/23/2019 12:00:00 AM EST eCW1 ([facility]) Immunizations Vaccine Date Status Description Data Source(s) pneumococcal polysaccharide PPV23 07/25/2020 11:28:00 AM EST comple sylvia eCW1 ([facility]) pneumococcal polysaccharide PPV23 07/25/2020 11:28:00 AM EST comple sylvia eCW1 ([facility]) pneumococcal polysaccharide PPV23 07/25/2020 11:28:00 AM EST comple sylvia eCW1 ([facility]) pneumococcal polysaccharide PPV23 07/25/2020 11:28:00 AM EST comple sylvia eCW1 ([facility]) pneumococcal polysaccharide PPV23 07/25/2020 11:28:00 AM EST comple sylvia eCW1 ([facility]) IIV3. This is one of two codes replacing CVX 15, which is being retired. 06/23/2020 10:48:00 AM EDT completed eCW1 ([facility]) IIV3. This is one of two codes replacing CVX 15, which is being retired. 06/23/2020 10:48:00 AM EDT completed eCW1 ([facility]) IIV3. This is one of two codes replacing CVX 15, which is being retired. 06/23/2020 10:48:00 AM EDT completed eCW1 ([facility]) IIV3. This is one of two codes replacing CVX 15, which is being retired. 06/23/2020 10:48:00 AM EDT completed eCW1 ([facility]) IIV3. This is one of two codes replacing CVX 15, which is being retired. 06/23/2020 10:48:00 AM EDT completed eCW1 ([facility]) Medications Medication Brand Name Start Date Product Form Dose Route Admi nistrative Instructions Pharmacy Instructions Status Indications Reaction Description Data Source(s) 150 mcg 08/06/2020 12:00:00 AM EST tablet 14 TAKE ONE TABLET BY MOUTH EVERY MORNING ON AN EMPTY STOMACH TAKE ONE TABLET BY MOUTH EVERY MORNING O N AN EMPTY STOMACH SOLD: 08/06/2020 [facility] 5 mg 07/25/2020 12:00:00 AM EST tablet 90 TAKE ONE TABLET BY MOUTH EVERY DAY TAKE ONE TABLET BY MOUTH EVERY DAY SOLD: 07/25/2020 [facility] 2 % 04/17/2020 12:00:00 AM EDT ointment 22 APPLY TO AFFECTED AREA(S) THREE TIMES A DAY FOR 10 DAYS APPLY TO AFFECTED AREA(S) THREE TIMES A DAY FOR 10 DAY S SOLD: 04/17/2020 [facility] Linagliptin 5 MG Oral Tablet [Tradjenta] Tradjenta 5 MG Trad jenta 5 MG 02/08/2020 12:00:00 AM EDT 1.0 {tablet} active Tradjenta 5 MG eCW1 ([facility]) 5 mg 02/08/2020 12:00:00 AM EDT tablet 90 TAKE ONE TABLET BY MOUTH EVERY DAY TAKE ONE TABLET BY MOUTH EVERY DAY SOLD: 02/08/2020 [facility] Linagliptin 5 MG Oral Tablet [Tradjenta] Tradjenta 5 MG Trad jenta 5 MG 02/08/2020 12:00:00 AM EDT 1.0 {tablet} active Tradjenta 5 MG eCW1 ([facility]) 5 mg 02/08/2020 12:00:00 AM EDT tablet 90 TAKE ONE TABLET BY MOUTH EVERY DAY TAKE ONE TABLET BY MOUTH EVERY DAY SOLD: 05/01/2020 [facility] Linagliptin 5 MG Oral Tablet [Tradjenta] Tradjenta 5 MG Trad jenta 5 MG 02/08/2020 12:00:00 AM EDT active 1 tablet eCW1 ([facility]) 40 mg 02/02/2020 12:00:00 AM EDT tablet 30 TAKE ONE TABLET BY MOUTH EVERY DAY TAKE ONE TABLET BY MOUTH EVERY DAY SOLD: 02/03/2020 [facility] 40 mg 02/02/2020 12:00:00 AM EDT tablet 30 TAKE ONE TABLET BY MOUTH EVERY DAY TAKE ONE TABLET BY MOUTH EVERY DAY SOLD: 03/04/2020 [facility] 40 mg 02/02/2020 12:00:00 AM EDT tablet 30 TAKE ONE TABLET BY MOUTH EVERY DAY TAKE ONE TABLET BY MOUTH EVERY DAY SOLD: 04/03/2020 [facility] Prednisone 20 MG Oral Tablet Prednisone 01/26/2020 12:00:00 AM EDT ORAL completed MEDENT ([facility], ) 120 ACTUAT Fluticasone propionate 0.23 M G/ACTUAT / salmeterol 0.021 MG/ACTUAT Metered Dose Inhaler [Advair] Advair HFA 01/12/2020 12:00:00 AM EDT RESPIRATORY active MEDENT ( [facility], ) Aerochamber Plus Abilio-Vu 01/12/2020 12:00:00 AM EDT active MEDENT ([facility], ) Levofloxacin 500 MG Oral Tablet Levofloxacin 01/04/2020 12:00:00 AM E DT ORAL completed MEDENT ([facility], ) Codeine Phosphate 2 MG/ML / Guaifenesin 20 MG/ML Oral Soluti on Virtussin A/C 12/26/2019 12:00:00 AM EDT ORAL completed MEDENT ([facility], ) Ipratropium [place] Ipratropium [place] 12/12/2019 12:00:00 AM EDT NASAL active MEDENT ([facility], ) benzonatate 200 MG Oral Capsule BENZONATATE 12/11/2019 12:00:00 AM EDT capsule 21 TAKE ONE CAPSULE BY MOUTH THREE TIMES A DAY FOR 7 DAYS TAKE ONE CAPSULE BY MOUTH THREE TIMES A DAY FOR 7 DAYS SOLD: 12/11/2019 [facility] 10 mg 11/30/2019 12:00:00 AM EDT tablet 90 TAKE ONE TABLET BY MOUTH EVERY DAY TAKE ONE TABLET BY MOUTH EVERY DAY SOLD: 03/26/2020 [facility] 10 mg 11/30/2019 12:00:00 AM EDT tablet 90 TAKE ONE TABLET BY MOUTH EVERY DAY TAKE ONE TABLET BY MOUTH EVERY DAY SOLD: 11/30/2019 [facility] Famotidine 20 MG Oral Tablet Famotidine 20 MG 11/30/2019 12:00:00 AM E DT active 1 tablet at bedtime as ne eded eCW1 ([facility]) benzonatate 200 MG Oral Capsule BENZONATATE 11/30/2019 12:00:00 AM EDT capsule 21 TAKE ONE CAPSULE BY MOUTH THREE TIMES A DAY TAKE ONE CAPSULE BY MOUTH THREE TIMES A DAY SOLD: 11/30/2019 [facility] 20 mg 11/30/2019 12:00:00 AM EDT tablet 60 TAKE ONE TABLET BY MOUTH TWICE A DAY TAKE ONE TABLET BY MOUTH TWICE A DAY SOLD: 12/28/2019 [facility] Famotidine 20 MG Oral Tablet FAMOTIDINE 11/30/2019 12:00:00 AM EDT tab let 60 TAKE ONE TABLET BY MOUTH TWICE A DAY TAKE ONE TABLET BY MOUTH TWICE A DAY SOLD: 11/30/2019 [facility] telmisartan 40 MG Oral Tablet Telmisartan 40 MG Telmisartan 40 MG 11/07/2019 12:00:00 AM EST active 1 tablet eCW1 ([facility]) telmisartan 40 MG Oral Tablet Telmisartan 40 MG Telmisartan 40 MG 11/07/2019 12:00:00 AM EST active 1 tablet eCW1 ([facility]) 40 mg 11/07/2019 12:00:00 AM EST tablet 30 TAKE ONE TABLET BY MOUTH EVERY DAY TAKE ONE TABLET BY MOUTH EVERY DAY SOLD: 01/04/2020 [facility] 40 mg 11/07/2019 12:00:00 AM EST tablet 30 TAKE ONE TABLET BY MOUTH EVERY DAY TAKE ONE TABLET BY MOUTH EVERY DAY SOLD: 12/04/2019 [facility] 40 mg 11/07/2019 12:00:00 AM EST tablet 30 TAKE ONE TABLET BY MOUTH EVERY DAY TAKE ONE TABLET BY MOUTH EVERY DAY SOLD: 11/08/2019 [facility] telmisartan 40 MG Oral Tablet Telmisartan 40 MG Telmisartan 40 MG 11/07/2019 12:00:00 AM EST active 1 tablet eCW1 ([facility]) telmisartan 40 MG Oral Tablet Telmisartan 40 MG Telmisartan 40 MG 11/07/2019 12:00:00 AM EST 1.0 {tablet} active Te lmisartan 40 MG eCW1 ([facility]) telmisartan 40 MG Oral Tablet Telmisartan 40 MG Telmisartan 40 MG 11/07/2019 12:00:00 AM EST 1.0 {tablet} active Te lmisartan 40 MG eCW1 ([facility]) Prednisone 20 MG Oral Tablet PredniSONE 20 MG PredniSONE 20 MG 10/09/2019 12:00:00 AM EST suspended 2 tab let eCW1 ([facility]) Loratadine 10 MG Oral Tablet [Claritin] Claritin 10 MG Sis tin 10 MG 10/09/2019 12:00:00 AM EST 1.0 {tablet} active C laritin 10 MG eCW1 ([facility]) 10 mg 10/09/2019 12:00:00 AM EST tablet 30 TAKE ONE TABLET BY MOUTH EVERY DAY TAKE ONE TABLET BY MOUTH EVERY DAY SOLD: 10/28/2019 [facility] Loratadine 10 MG Oral Tablet [Claritin] Claritin 10 MG Sis tin 10 MG 10/09/2019 12:00:00 AM EST active 1 table t eCW1 ([facility]) Loratadine 10 MG Oral Tablet [Claritin] Claritin 10 MG Sis tin 10 MG 10/09/2019 12:00:00 AM EST active 1 table t eCW1 ([facility]) Prednisone 20 MG Oral Tablet PredniSONE 20 MG PredniSONE 20 MG 10/09/2019 12:00:00 AM EST 2.0 {tablet} suspended PredniSONE 20 MG eCW1 ([facility]) 90 mcg/actuation 10/09/2019 12:00:00 AM EST HFA aerosol inha ler 18 INHALE TWO PUFFS BY MOUTH EVERY 6 HOURS NEEDED INHALE TWO PUFFS BY MOUTH EVERY 6 HOURS NEEDED SOLD: 10/09/2019 [facility] 10 mg 10/09/2019 12:00:00 AM EST tablet 30 TAKE ONE TABLET BY MOUTH EVERY DAY TAKE ONE TABLET BY MOUTH EVERY DAY SOLD: 10/09/2019 [facility] Prednisone 20 MG Oral Tablet PredniSONE 20 MG PredniSONE 20 MG 10/09/2019 12:00:00 AM EST active 2 tablet eCW1 ([facility]) Loratadine 10 MG Oral Tablet [Claritin] Claritin 10 MG Sis tin 10 MG 10/09/2019 12:00:00 AM EST 1.0 {tablet} active C laritin 10 MG eCW1 ([facility]) Loratadine 10 MG Oral Tablet [Claritin] Claritin 10 MG Sis tin 10 MG 10/09/2019 12:00:00 AM EST active 1 table t eCW1 ([facility]) 20 mg 10/09/2019 12:00:00 AM EST tablet 10 TAKE TWO TABLETS BY MOUTH EVERY DAY FOR 5 DAYS TAKE TWO TABLETS BY MOUTH EVERY DAY FOR 5 DAYS SOLD: 020 [facility] Prednisone 20 MG Oral Tablet PredniSONE 20 MG PredniSONE 20 MG 10/09/2019 12:00:00 AM EST suspended 2 tab let eCW1 ([facility]) Prednisone 20 MG Oral Tablet PredniSONE 20 MG PredniSONE 20 MG 10/09/2019 12:00:00 AM EST 2.0 {tablet} suspended PredniSONE 20 MG eCW1 ([facility]) 10 mg 10/09/2019 12:00:00 AM EST tablet 30 TAKE ONE TABLET BY MOUTH EVERY DAY TAKE ONE TABLET BY MOUTH EVERY DAY SOLD: 11/26/2019 [facility] Insurance Providers Payer name Policy type / Coverage type Policy ID Covered alliance party ID Covered alliance party's relationship to isidro Policy Isidro Plan Information AETNA MEDICARE [id number] SP [id number] AETNA MEDICARE O [id number] S [id number] AETNA MEDICARE [id number] SP [id number] AETNA MEDICARE O [id number] 7YC AETNA MEDICARE [id number] SP [id number] 7YC AETNA MEDICARE O [id number] ANSI-Medicare Part B [id number] ANSI-Medicare Part B [id number] ANSI-Medicare Part B [id number] ANSI-Medicare Part B [id number] ANSI-Medicare Part B [id number] ANSI-Medicare Part B [id number] ANSI-Medicare Part B [id number] ANSI-Medicare Part B [id number] ANSI-Medicare Part B [id number] ANSI-Medicare Part B [id number] [employer] Commercial [id number] Self [id number] ANSI-Medicare Part B [id number] ANSI-Medicare Part B [id number] ANSI-Medicare Part B [id number] ANSI-Medicare Part B [id number] ANSI-Medicare Part B [id number] ANSI-Medicare Part B [id number] ANSI-Medicare Part B [id number] ANSI-Medicare Part B [id number] ANSI-Medicare Part B [id number] ANSI-Medicare Part B [id number] ANSI-Medicare Part B [id number] ANSI-Medicare Part B [id number] 859k8gp1-y3p0-326l-12ps-8f611x8641ex ANSI-Medicare Part B [id number]25679d943m1 2gc149v1-3951-2223-5xb4-332021x712t8 ANSI-Medicare Part B o474xls1-ycp0-9t2q-zal4-46r30t7o6800 m484hzd1-gvw5-8h2q-ssz8-11p91r1j2151 ANSI-Medicare Part B bbth051p-16c9-9b91-j520-22ny62f0b928 fwzs966a-57u1-9s44-q401-31ew60n6s811 ANSI-Medicare Part B 192xok0v-o636-982w-i289-65m6o99v1vef 217aeq4v-f194-502o-l891-22e5q20g3lwx ANSI-Medicare Part B 8v20l64w-1hd4-3367-6380-9x3l715669t2 7d85h34m-5ne4-0472-1787-0b3o637864q8 ANSI-Medicare Part B [id number]-f723-9bs9-264o-i2413gj50aby y0579541-u074-9ij1-193q-p0757di61qfv ANSI-Medicare Part B [id number]-er88-4x5b2091q2w1 b679o786-98p7-9141-vd27-3o5a1755r0p4 ANSI-Medicare Part B [id number] ANSI-Medicare Part B [id number] ANSI-Medicare Part B [id number] ANSI-Medicare Part B [id number] ANSI-Medicare Part B [id number] ANSI-Medicare Part B [id number] ANSI-Medicare Part B [id number] ANSI-Medicare Part B [id number] ANSI-Medicare Part B [id number] AETNA MEDICARE [id number] SP [id number] MEDICARE COMPLETE [id number] SP [id number] ANSI-Medicare Part B [id number] ANSI-Medicare Part B [id number] ANSI-Medicare Part B [id number] ANSI-Medicare Part B [id number] MEDICARE COMPLETE [id number] ANSI-Medicare Part B [id number] ANSI-Medicare Part B [id number] ANSI-Medicare Part B [id number] ANSI-Medicare Part B [id number] ANSI-Medicare Part B [id number] ANSI-Medicare Part B [id number] ANSI-Medicare Part B [id number] [facility]-Medicare Part B [id number] [facility]-Medicare Part B [id number] [facility] [id number] ANS-Medicare Part B [id number] MEDICARE COMPLETE-[facility] O [id number] S [id number] [employer] [place] [id number] S [id number] [employer] [place] [id number] S [id number] Problems, Conditions, and Diagnoses Code Display Name Description Problem Type Effective Dates Data Source(s) D86.9 [id number] Sarcoidosis Problem 02/08/2020 12:00:00 AM E DT eCW1 ([facility]) D86.9 [id number] Sarcoidosis Problem 02/08/2020 12:00:00 AM E DT eCW1 ([facility]) [id number] Sarcoidosis Sarcoidosis Problem 02/01/2020 12:00:00 AM EDT [facility] ([facility], ) Encounter for preprocedural laboratory e xamination Encounter for preprocedural laboratory examination Problem 01/12/2020 12:00:00 AM EDT MED[facility] ([facility], ) [id number] Chronic sinusitis Chronic sinusitis Problem 01/12/2020 12:00:00 AM EDT [facility] ([facility], ) Other nonspecific abnormal finding of blanco ng field Other nonspecific abnormal finding of lung field Problem 12/12/2019 12:00:00 AM EDT MED[facility] ([facility]) [id number] Pulmonary function studies abnormal Pulm onary function studies abnormal Problem 12/12/2019 12:00:00 AM EDT MED[facility] ([facility]) [id number] Cough Cough Problem 12/12/2019 12:00:00 AM ED T MEDENT ([facility]) Surgeries/Procedures Procedure Description Date Indications Data Source(s) PNEUMOCOCCAL POLYSAC VACCINE 23-V 2 />YR SUBQ/IM 07/25 12:00:00 AM EST eCW1 ([facility]) Bronchospasm Evaluation 05/08/2020 12:00:00 AM EDT MED[facility] ([facility]) Maximum Breathing Capacity, Maximal Voluntary Ventilation 05/08/2020 12:00:00 AM EDT MED[facility] ([facility]) Plethysmography Determination Lung Volumes & Per Airway Resi st 05/08/2020 12:00:00 AM EDT MED[facility] ([facility]) DIFFUSING CAPACITY 05/08/2020 12:00:00 AM EDT MED[facility] ([facility]) Office Visit, Est Pt., Level 1 FC 02/08/2020 12:00:00 AM EDT eCW1 ([facility]) Office Visit, Est Pt., Level 3 PC 02/08/2020 12:00:00 AM EDT eCW1 ([facility]) Bronchoscopy W/Bronchial Alveolar Lavage 01/24/2020 12 :00:00 AM EDT MED[facility] ([facility]) Bronchoscopy W/Transbronchial Lung Biopsy 01/24/2020 1 2:00:00 AM EDT [facility] ([facility]) Bronchoscopy W/Transbronchial Lung Biopsy(S) Each Additional Lobe 01/24/2020 12:00:00 AM EDT MED[facility] ([facility]) With Endobronchial Ultrasound Guided 01/24/2020 12:00: 00 AM EDT [facility] ([facility]) Aerosol Or Vapor Inhalations 01/12/2020 12:00:00 AM ED T MED[facility] ([facility]) Bronchospasm Evaluation 01/01/2020 12:00:00 AM EDT [facility]) Plethysmography Determination Lung Volumes & Per Airway Resi st 01/01/2020 12:00:00 AM EDT MEDENT ([facility] actice, ) DIFFUSING CAPACITY 01/01/2020 12:00:00 AM EDT [facility] ([facility]) Spirometry 12/12/2019 12:[facility] VENIPUNCT, ROUTINE* 10/30/2019 12:00:00 AM EST eCW1 ([facility]) Office Visit, Est Pt., Level 2 FC 10/09/2019 12:00:00 AM EST eCW1 ([facility]) Results ID Date Data Source [id number] 01/24/2020 10:00:00 AM EDT [facility] ([facility]) Name Value Range Interpretation Code Description Data Shy rce(s) Supporting Document(s) Microscopic observation [Identifier] in Unspecified specimen by Non- gynecological cytology method Laboratory test result [facility] ([facility]) SPECIMEN: FNA subcarinal lymp h node Prepared slides and cytolyt SPECIMEN ADEQUACY: Satisfactory for evaluation CATEGORIZATION: Negative for Malignancy DESCRIPTIONS: Histiocytic aggregate is noted in a background of blood elements, suggestive of granuloma. COMMENTS: See report [id number] 01/25/2020 - [address] (ASCP) 01/24/2020 1428 (Prelim) Signed Fay Parr MD 01/25/2020 0834 ID Date Data Source [id number] 01/24/2020 09:42:00 AM EDT [facility] ([facility]) Name Value Range Interpretation Code Description Data Shy rce(s) Supporting Document(s) Fungal Smear Laboratory test result [facility] ([facility]) Testing performed at reference lab . Rep ort copy to follow on a separate form. 03/08/20 REF LAB#:[id number] PABLO/Calcofluor preparatio No fungus observed. Fungal Culture Other Source Laboratory test result [facility] ([facility]) Testing performed at reference lab . Rep ort copy to follow on a separate form. 03/08/20 REF LAB#:[id number] FUNGUS CULTURE [facility] No Yeast or Mold Isolated after 4 weeks. ID Date Data Source [id number] 01/24/2020 09:42:00 AM EDT [facility] ([facility]) Name Value Range Interpretation Code Description Data Shy rce(s) Supporting Document(s) Color Laboratory test result Above high normal [facility] ([facility]) Source Laboratory test result Normal (applies to non-n umeric results) [facility] ([facility]) RIGHT UPPER LOBE Bal WBC Laboratory test result 0-10 Normal (applies to non-n umeric results) [facility] ([facility]) Appearance Laboratory test result Above high normal [facility] ([facility]) ID Date Data Source [id number] 01/24/2020 09:42:00 AM EDT [facility] ([facility]) Name Value Range Interpretation Code Description Data Shy rce(s) Supporting Document(s) Source Laboratory test result Normal (applies to non-n umeric results) [facility] ([facility]) RIGHT UPPER LOBE Color Laboratory test result Above high normal [facility] ([facility]) Appearance Laboratory test result Above high normal [facility] ([facility]) Bal WBC Laboratory test result 0-10 Normal (applies to non-n umeric results) [facility] ([facility]) ID Date Data Source [id number] 01/24/2020 09:42:00 AM EDT [facility] ([facility]) Name Value Range Interpretation Code Description Data Shy rce(s) Supporting Document(s) Source Laboratory test result Normal (applies to non-n umeric results) [facility] ([facility]) RIGHT UPPER LOBE Color Laboratory test result Above high normal [facility] ([facility]) Bal WBC Laboratory test result 0-10 Normal (applies to non-n umeric results) [facility] ([facility]) Appearance Laboratory test result Above high normal [facility] ([facility]) ID Date Data Source [id number] 01/24/2020 09:42:00 AM EDT [facility] ([facility]) Name Value Range Interpretation Code Description Data Shy rce(s) Supporting Document(s) Color [facility] Source Laboratory test result Normal (applies to non-n umeric results) [facility] ([facility]) RIGHT UPPER LOBE Appearance Laboratory test result Above high normal [facility] ([facility]) Bal WBC Laboratory test result 0-10 Normal (applies to non-n umeric results) [facility] ([facility]) ID Date Data Source [id number] 01/24/2020 09:42:00 AM EDT [facility] ([facility]) Name Value Range Interpretation Code Description Data Shy rce(s) Supporting Document(s) Color Laboratory test result [facility] Source Laboratory test result Normal (applies to non-n umeric results) [facility] ([facility]) RIGHT UPPER LOBE Appearance Laboratory test result Above high normal [facility] ([facility]) Bal WBC Laboratory test result 0-10 Normal (applies to non-n umeric results) [facility] ([facility]) ID Date Data Source [id number] 01/24/2020 09:42:00 AM EDT [facility] ([facility]) Name Value Range Interpretation Code Description Data Shy rce(s) Supporting Document(s) Source Laboratory test result Normal (applies to non-n umeric results) [facility] ([facility]) RIGHT UPPER LOBE Color Laboratory test result Above high normal [facility] ([facility]) Bal WBC Laboratory test result 0-10 Normal (applies to non-n umeric results) [facility] ([facility]) Appearance Laboratory test result Above high normal [facility] ([facility]) ID Date Data Source [id number] 01/24/2020 09:42:00 AM EDT [facility] ([facility]) Name Value Range Interpretation Code Description Data Shy rce(s) Supporting Document(s) Source Laboratory test result Normal (applies to non-n umeric results) [facility] ([facility]) RIGHT UPPER LOBE Color Laboratory test result Above high normal [facility] ([facility]) Appearance Laboratory test result Above high normal [facility] ([facility]) Bal WBC Laboratory test result 0-10 Normal (applies to non-n umeric results) [facility] ([facility]) ID Date Data Source [id number] 01/24/2020 09:42:00 AM EDT [facility] ([facility]) Name Value Range Interpretation Code Description Data Shy rce(s) Supporting Document(s) Color Laboratory test result [facility] Source Laboratory test result Normal (applies to non-n umeric results) [facility] ([facility]) RIGHT UPPER LOBE Appearance Laboratory test result Above high normal [facility] ([facility]) Bal WBC Laboratory test result 0-10 Normal (applies to non-n umeric results) [facility] ([facility]) ID Date Data Source [id number] 01/24/2020 09:42:00 AM EDT [facility] ([facility]) Name Value Range Interpretation Code Description Data Shy rce(s) Supporting Document(s) Color Laboratory test result Above high normal [facility] ([facility]) Source Laboratory test result Normal (applies to non-n umeric results) [facility] ([facility]) RIGHT UPPER LOBE Appearance Laboratory test result Above high normal [facility] ([facility]) Bal WBC Laboratory test result 0-10 Normal (applies to non-n umeric results) [facility] ([facility]) ID Date Data Source [id number] 01/24/2020 09:42:00 AM EDT [facility] ([facility]) Name Value Range Interpretation Code Description Data Shy rce(s) Supporting Document(s) Source Laboratory test result Normal (applies to non-n umeric results) [facility] ([facility]) RIGHT UPPER LOBE Color Laboratory test result Above high normal [facility] ([facility]) Appearance Laboratory test result Above high normal [facility] ([facility]) Bal WBC Laboratory test result 0-10 Normal (applies to non-n umeric results) [facility] ([facility]) ID Date Data Source [id number] 01/24/2020 09:42:00 AM EDT [facility] ([facility]) Name Value Range Interpretation Code Description Data Shy rce(s) Supporting Document(s) Source Laboratory test result Normal (applies to non-n umeric results) [facility] ([facility]) RIGHT UPPER LOBE Color Laboratory test result Above high normal [facility] ([facility]) Bal WBC Laboratory test result 0-10 Normal (applies to non-n umeric results) [facility] ([facility]) Appearance Laboratory test result Above high normal [facility] ([facility]) ID Date Data Source [id number] 01/24/2020 09:42:00 AM EDT [facility] ([facility]) Name Value Range Interpretation Code Description Data Shy rce(s) Supporting Document(s) Source Laboratory test result Normal (applies to non-n umeric results) [facility] ([facility]) RIGHT UPPER LOBE Appearance Laboratory test result Above high normal [facility] ([facility]) Color Laboratory test result Above high normal [facility] ([facility]) Bal WBC Laboratory test result 0-10 Normal (applies to non-n umeric results) [facility] ([facility]) ID Date Data Source [id number] 01/24/2020 09:42:00 AM EDT [facility] ([facility]) Name Value Range Interpretation Code Description Data Shy rce(s) Supporting Document(s) Appearance Laboratory test result Above high normal [facility] ([facility]) Color Laboratory test result Above high normal [facility] ([facility]) Source Laboratory test result Normal (applies to non-n umeric results) [facility] RIGHT UPPER LOBE Bal WBC Laboratory test result 0-10 Normal (applies to non-n umeric results) [facility] ([facility]) ID Date Data Source [id number] 01/24/2020 09:42:00 AM EDT [facility] ([facility]) Name Value Range Interpretation Code Description Data Shy rce(s) Supporting Document(s) Afb Smear Laboratory test result [facility] ([facility]) Due to limited sensitivity, smear result s should be used as an adjunct in evaluating patient tuberculosis status. Cultural examination is highly recommended for clinical diagnosis. AFB smear Kinyoun NEGATIVE (NO AFB Seen ) Afb Culture Laboratory test result [facility] ([facility]) Testing performed at reference lab . Rep ort copy to follow on a separate form. 03/08/20 REF LAB#:[id number] [facility]ULL [facility]PORT [facility] No Acid-Fast Bacilli Isolated after 6 Weeks. ID Date Data Source [id number] 01/24/2020 09:42:00 AM EDT [facility] ([facility]) Name Value Range Interpretation Code Description Data Shy rce(s) Supporting Document(s) Source Laboratory test result Normal (applies to non-n umeric results) [facility] ([facility]) RIGHT UPPER LOBE Color Laboratory test result Above high normal [facility] ([facility]) Bal WBC Laboratory test result 0-10 Normal (applies to non-n umeric results) [facility] ([facility]) Appearance Laboratory test result Above high normal [facility] ([facility]) ID Date Data Source [id number] 01/24/2020 09:42:00 AM EDT [facility] ([facility]) Name Value Range Interpretation Code Description Data Shy rce(s) Supporting Document(s) Source Laboratory test result Normal (applies to non-n umeric results) [facility] ([facility]) RIGHT UPPER LOBE Color Laboratory test result Above high normal [facility] ([facility]) Appearance Laboratory test result Above high normal [facility] ([facility]) Bal WBC Laboratory test result 0-10 Normal (applies to non-n umeric results) [facility] ([facility]) ID Date Data Source [id number] 01/24/2020 09:42:00 AM EDT [facility] ([facility]) Name Value Range Interpretation Code Description Data Shy rce(s) Supporting Document(s) Source Laboratory test result Normal (applies to non-n umeric results) [facility] ([facility]) RIGHT UPPER LOBE Color Laboratory test result Above high normal [facility] ([facility]) Bal WBC Laboratory test result 0-10 Normal (applies to non-n umeric results) [facility] ([facility]) Appearance [facility] ID Date Data Source [id number] 01/24/2020 09:42:00 AM EDT [facility] ([facility]) Name Value Range Interpretation Code Description Data Shy rce(s) Supporting Document(s) Source Laboratory test result Normal (applies to non-n umeric results) [facility] ([facility]) RIGHT UPPER LOBE Bal WBC Laboratory test result 0-10 Normal (applies to non-n umeric results) [facility] ([facility]) Appearance Laboratory test result Above high normal [facility] ([facility]) Color Laboratory test result Above high normal [facility] ([facility]) ID Date Data Source [id number] 01/24/2020 09:42:00 AM EDT [facility] ([facility]) Name Value Range Interpretation Code Description Data Shy rce(s) Supporting Document(s) Source Laboratory test result Normal (applies to non-n umeric results) [facility] ([facility]) RIGHT UPPER LOBE Color Laboratory test result Above high normal [facility] ([facility]) Appearance Laboratory test result Above high normal [facility] ([facility]) Bal WBC Laboratory test result 0-10 Normal (applies to non-n umeric results) [facility] ([facility]) ID Date Data Source [id number] 01/24/2020 09:42:00 AM EDT [facility] ([facility]) Name Value Range Interpretation Code Description Data Shy rce(s) Supporting Document(s) Color Laboratory test result Above high normal [facility] ([facility]) Source Laboratory test result Normal (applies to non-n umeric results) [facility] ([facility]) RIGHT UPPER LOBE Bal WBC Laboratory test result 0-10 Normal (applies to non-n umeric results) [facility] ([facility]) Appearance Laboratory test result Above high normal [facility] ([facility]) ID Date Data Source [id number] 01/24/2020 09:42:00 AM EDT [facility] ([facility]) Name Value Range Interpretation Code Description Data Shy rce(s) Supporting Document(s) Source Laboratory test result Normal (applies to non-n umeric results) [facility] ([facility]) RIGHT UPPER LOBE Color Laboratory test result Above high normal [facility] ([facility]) Appearance Laboratory test result Above high normal [facility] ([facility]) Bal WBC Laboratory test result 0-10 Normal (applies to non-n umeric results) [facility] ([facility]) ID Date Data Source [id number] 01/24/2020 09:42:00 AM EDT [facility] ([facility]) Name Value Range Interpretation Code Description Data Shy rce(s) Supporting Document(s) 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 Cultural examination is highly recommended for clinical diagnosis. AFB smear Kinyoun NEGATIVE (NO AFB Seen ) ID Date Data Source [id number] 01/24/2020 09:42:00 AM EDT [facility] ([facility]) Name Value Range Interpretation Code Description Data Shy rce(s) Supporting Document(s) Gram Stain Laboratory test result Normal (applies to non-n umeric results) [facility] ([facility]) FEW WBCS NO ORGANISMS SEEN Bal Culture Laboratory test result Normal (applies to non- numeric results) [facility] ([facility]) FULL REPORT IN LAB NOTES ([facility] DECREASED NORMAL JESSICA PRESENT ID Date Data Source [id number] 01/24/2020 09:42:00 AM EDT [facility] ([facility]) Name Value Range Interpretation Code Description Data Shy rce(s) Supporting Document(s) Source Laboratory test result Normal (applies to non-n umeric results) [facility] ([facility]) RIGHT UPPER LOBE Color Laboratory test result Above high normal [facility] ([facility]) Appearance Laboratory test result Above high normal [facility] ([facility]) Bal WBC Laboratory test result 0-10 Normal (applies to non-n umeric results) [facility] ([facility]) ID Date Data Source [id number] 01/24/2020 09:42:00 AM EDT [facility] ([facility]) Name Value Range Interpretation Code Description Data Shy rce(s) Supporting Document(s) Neutrophils, Bal 96 % Normal (applies to non-numeric results) [facility] ([facility]) Eosinophils, Bal 4 % Normal (applies to non-numeric results) [facility] ([facility]) ID Date Data Source [id number] 01/24/2020 09:42:00 AM EDT [facility] ([facility]) Name Value Range Interpretation Code Description Data Shy rce(s) Supporting Document(s) Color Laboratory test result Above high normal [facility] ([facility]) Source Laboratory test result Normal (applies to non-n umeric results) [facility] ([facility]) RIGHT UPPER LOBE Bal WBC Laboratory test result 0-10 Normal (applies to non-n umeric results) [facility] ([facility]) Appearance Laboratory test result Above high normal [facility] ([facility]) ID Date Data Source [id number] 01/24/2020 09:42:00 AM EDT [facility] ([facility]) Name Value Range Interpretation Code Description Data Shy rce(s) Supporting Document(s) Source Laboratory test result Normal (applies to non-n umeric results) [facility] ([facility]) RIGHT UPPER LOBE Appearance Laboratory test result Above high normal [facility] ([facility]) Color Laboratory test result Above high normal [facility] ([facility]) Bal WBC Laboratory test result 0-10 Normal (applies to non-n umeric results) [facility] ([facility]) ID Date Data Source [id number] 01/24/2020 09:42:00 AM EDT [facility] ([facility]) Name Value Range Interpretation Code Description Data Shy rce(s) Supporting Document(s) Source Laboratory test result Normal (applies to non-n umeric results) [facility] ([facility]) RIGHT UPPER LOBE Color Laboratory test result Above high normal [facility] ([facility]) Bal WBC Laboratory test result 0-10 Normal (applies to non-n umeric results) [facility] ([facility]) Appearance Laboratory test result Above high normal [facility] ([facility]) ID Date Data Source [id number] 01/24/2020 09:42:00 AM EDT [facility] ([facility]) Name Value Range Interpretation Code Description Data Shy rce(s) Supporting Document(s) Source Laboratory test result Normal (applies to non-n umeric results) [facility] ([facility]) RIGHT UPPER LOBE Color Laboratory test result Above high normal [facility] ([facility]) Appearance Laboratory test result Above high normal [facility] ([facility]) Bal WBC Laboratory test result 0-10 Normal (applies to non-n umeric results) [facility] ([facility]) ID Date Data Source [id number] 01/24/2020 09:42:00 AM EDT [facility] ([facility]) Name Value Range Interpretation Code Description Data Shy rce(s) Supporting Document(s) Source Laboratory test result Normal (applies to non-n umeric results) [facility] ([facility]) RIGHT UPPER LOBE Color Laboratory test result Above high normal [facility] ([facility]) Appearance Laboratory test result Above high normal [facility] ([facility]) Bal WBC Laboratory test result 0-10 Normal (applies to non-n umeric results) [facility] ([facility]) ID Date Data Source [id number] 01/24/2020 09:42:00 AM EDT [facility] ([facility]) Name Value Range Interpretation Code Description Data Shy rce(s) Supporting Document(s) Color Laboratory test result Above high normal [facility] ([facility]) Source Laboratory test result Normal (applies to non-n umeric results) [facility] ([facility]) RIGHT UPPER LOBE Appearance Laboratory test result Above high normal [facility] ([facility]) Bal WBC Laboratory test result 0-10 Normal (applies to non-n umeric results) [facility] ([facility]) ID Date Data Source [id number] 01/24/2020 09:42:00 AM EDT [facility] ([facility]) Name Value Range Interpretation Code Description Data Shy rce(s) Supporting Document(s) Source Laboratory test result Normal (applies to non-n umeric results) [facility] ([facility]) RIGHT UPPER LOBE Color Laboratory test result Above high normal [facility] ([facility]) Appearance [facility] Bal WBC Laboratory test result 0-10 Normal (applies to non-n umeric results) [facility] ([facility]) ID Date Data Source [id number] 01/24/2020 09:42:00 AM EDT [facility] ([facility]) Name Value Range Interpretation Code Description Data Hsy rce(s) Supporting Document(s) Source Laboratory test result Normal (applies to non-n umeric results) [facility] ([facility]) RIGHT UPPER LOBE Appearance Laboratory test result [facility] Color Laboratory test result Above high normal [facility] ([facility]) Bal WBC Laboratory test result 0-10 Normal (applies to non-n umeric results) [facility] ([facility]) ID Date Data Source [id number] 01/24/2020 09:42:00 AM EDT [facility] ([facility]) Name Value Range Interpretation Code Description Data Shy rce(s) Supporting Document(s) Color Laboratory test result Above high normal [facility] ([facility]) Appearance Laboratory test result Above high normal [facility] ([facility]) Source Laboratory test result Normal (applies to non-n umeric results) [facility] ([facility]) RIGHT UPPER LOBE Bal WBC Laboratory test result 0-10 Normal (applies to non-n umeric results) [facility] ([facility]) ID Date Data Source [id number] 01/24/2020 09:42:00 AM EDT [facility] ([facility]) Name Value Range Interpretation Code Description Data Shy rce(s) Supporting Document(s) Color Laboratory test result Above high normal [facility] ([facility]) Source Laboratory test result Normal (applies to non-n umeric results) [facility] ([facility]) RIGHT UPPER LOBE Appearance Laboratory test result Above high normal [facility] ([facility]) Bal WBC Laboratory test result 0-10 Normal (applies to non-n umeric results) [facility] ([facility]) ID Date Data Source [id number] 01/24/2020 09:42:00 AM EDT [facility] ([facility]) Name Value Range Interpretation Code Description Data Shy rce(s) Supporting Document(s) Source Laboratory test result Normal (applies to non-n umeric results) [facility] ([facility]) RIGHT UPPER LOBE Color Laboratory test result Above high normal [facility] ([facility]) Appearance Laboratory test result Above high normal [facility] ([facility]) Bal WBC Laboratory test result 0-10 Normal (applies to non-n umeric results) [facility] ([facility]) ID Date Data Source [id number] 01/24/2020 09:42:00 AM EDT [facility] ([facility]) Name Value Range Interpretation Code Description Data Shy rce(s) Supporting Document(s) Source Laboratory test result Normal (applies to non-n umeric results) [facility] ([facility]) RIGHT UPPER LOBE Color Laboratory test result Above high normal [facility] ([facility]) Bal WBC Laboratory test result 0-10 Normal (applies to non-n umeric results) [facility] ([facility]) Appearance Laboratory test result Above high normal [facility] ([facility]) ID Date Data Source [id number] 01/24/2020 09:42:00 AM EDT [facility] ([facility]) Name Value Range Interpretation Code Description Data Shy rce(s) Supporting Document(s) Source Laboratory test result Normal (applies to non-n umeric results) [facility] ([facility]) RIGHT UPPER LOBE Appearance Laboratory test result Above high normal [facility] ([facility]) Color Laboratory test result Above high normal [facility] ([facility]) Bal WBC Laboratory test result 0-10 Normal (applies to non-n umeric results) [facility] ([facility]) ID Date Data Source [id number] 01/24/2020 09:42:00 AM EDT [facility] ([facility]) Name Value Range Interpretation Code Description Data Shy rce(s) Supporting Document(s) Source Laboratory test result Normal (applies to non-n umeric results) [facility] ([facility]) RIGHT UPPER LOBE Color [facility] result [facility] Appearance Laboratory test result Above high normal [facility] ([facility]) Bal WBC Laboratory test result 0-10 Normal (applies to non-n umeric results) [facility] ([facility]) ID Date Data Source [id number] 01/24/2020 09:42:00 AM EDT [facility] ([facility]) Name Value Range Interpretation Code Description Data Shy rce(s) Supporting Document(s) Source Laboratory test result Normal (applies to non-n umeric results) [facility] ([facility]) RIGHT UPPER LOBE Appearance Laboratory test result Above high normal [facility] ([facility]) Color Laboratory test result Above high normal [facility] ([facility]) Bal WBC Laboratory test result 0-10 Normal (applies to non-n umeric results) [facility] ([facility]) ID Date Data Source [id number] 01/24/2020 09:42:00 AM EDT [facility] ([facility]) Name Value Range Interpretation Code Description Data Shy rce(s) Supporting Document(s) Color Laboratory test result Above high normal [facility] ([facility]) Source Laboratory test result Normal (applies to non-n umeric results) [facility] ([facility]) RIGHT UPPER LOBE Appearance Laboratory test result Above high normal [facility] ([facility]) Bal WBC Laboratory test result 0-10 Normal (applies to non-n umeric results) [facility] ([facility]) ID Date Data Source [id number] 01/24/2020 09:42:00 AM EDT [facility] ([facility]) Name Value Range Interpretation Code Description Data Shy rce(s) Supporting Document(s) Source Laboratory test result Normal (applies to non-n umeric results) [facility] ([facility]) RIGHT UPPER LOBE Color Laboratory test result Above high normal [facility] ([facility]) Bal WBC Laboratory test result 0-10 Normal (applies to non-n umeric results) [facility] ([facility]) Appearance Laboratory test result [facility] ID Date Data Source [id number] 01/24/2020 09:42:00 AM EDT [facility] ([facility]) Name Value Range Interpretation Code Description Data Shy rce(s) Supporting Document(s) Source Laboratory test result Normal (applies to non-n umeric results) [facility] ([facility]) RIGHT UPPER LOBE Appearance Laboratory test result Above high normal [facility] ([facility]) Color Laboratory test result [facility] Bal WBC Laboratory test result 0-10 Normal (applies to non-n umeric results) [facility] ([facility]) ID Date Data Source [id number] 01/24/2020 09:42:00 AM EDT [facility] ([facility]) Name Value Range Interpretation Code Description Data Shy rce(s) Supporting Document(s) Source Laboratory test result Normal (applies to non-n umeric results) [facility] ([facility]) RIGHT UPPER LOBE Color Laboratory test result Above high normal [facility] ([facility]) Bal WBC Laboratory test result 0-10 Normal (applies to non-n umeric results) [facility] ([facility]) Appearance Laboratory test result Above high normal [facility] ([facility]) ID Date Data Source [id number] 01/24/2020 09:42:00 AM EDT [facility] ([facility]) Name Value Range Interpretation Code Description Data Shy rce(s) Supporting Document(s) Source Laboratory test result Normal (applies to non-n umeric results) [facility] ([facility]) RIGHT UPPER LOBE Color Laboratory test result Above high normal [facility] ([facility]) Appearance Laboratory test result Above high normal [facility] ([facility]) Bal WBC Laboratory test result 0-10 Normal (applies to non-n umeric results) [facility] ([facility]) ID Date Data Source [id number] 01/24/2020 09:42:00 AM EDT [facility] ([facility]) Name Value Range Interpretation Code Description Data Shy rce(s) Supporting Document(s) Source Laboratory test result Normal (applies to non-n umeric results) [facility] ([facility]) RIGHT UPPER LOBE Color Laboratory test result Above high normal [facility] ([facility]) Bal WBC Laboratory test result 0-10 Normal (applies to non-n umeric results) [facility] ([facility]) Appearance Laboratory test result Above high normal [facility] ([facility]) ID Date Data Source [id number] 01/24/2020 09:42:00 AM EDT [facility] ([facility]) Name Value Range Interpretation Code Description Data Shy rce(s) Supporting Document(s) Source Laboratory test result Normal (applies to non-n umeric results) [facility] ([facility]) RIGHT UPPER LOBE Color Laboratory test result Above high normal [facility] ([facility]) Appearance Laboratory test result Above high normal [facility] ([facility]) Bal WBC Laboratory test result 0-10 Normal (applies to non-n umeric results) [facility] ([facility]) ID Date Data Source [id number] 01/24/2020 09:42:00 AM EDT [facility] ([facility]) Name Value Range Interpretation Code Description Data Shy rce(s) Supporting Document(s) Source Laboratory test result Normal (applies to non-n umeric results) [facility] ([facility]) RIGHT UPPER LOBE Color Laboratory test result Above high normal [facility] ([facility]) Appearance Laboratory test result Above high normal [facility] ([facility]) Bal WBC Laboratory test result 0-10 Normal (applies to non-n umeric results) [facility] ([facility]) ID Date Data Source [id number] 01/24/2020 09:25:00 AM EDT [facility] ([facility]) Name Value Range Interpretation Code Description Data Shy rce(s) Supporting Document(s) Surgical pathology study Laboratory test result [facility] ([facility]) Addendum 1 Entered: 01/29/2020-1413 No mycobacteria or fungal organisms are noted on AFB or GMS stain. Although a negative stain does not rule out an infectious process, sarcoidosis and other non-infectious granulomatous diseases are in the differential. 01/29/20201412 Addendum Signed____ Fay Parr MD 01/29/20201412 FINAL DIAGNOSIS A - Right lung, upper lobe, middle lobe, and lower lobe, transbronchial biopsies: Predominantly fragments of ciliated respiratory type mucosa and a few fragments of alveolated lung tissue, admixed with viscid mucus. B - Cell block from fine-needle aspiration of subcarinal lymph node: A few non-necrotizing granulomas are noted. Several fragments of bronchial wall mucosa and cartilage are also noted admixed with blood clot. AFB and GMS stain is pending, addendum will follow. 01/25/2020 - 1235 CLINICAL DIAGNOSIS Right upper lobe/right middle lobe/left upper lobe abnormality and mediastinal lymphadenopathy 01/25/2020 - 1047 GROSS DIAGNOSIS A - Received in formalin labeled "transbronchial biopsy right upper lobe and right middle lobe and right lower lobe" is a bag containing a 1 x 0.1 x 0.1 cm aggregate of multiple pink and pale siegel tissue fragments. Submitted all in one. B - Received fine-needle aspiration of subcarinal lymph node, submitted for cell block. 01/25/2020 - 0832 Signed Fay Parr MD 01/25/2020 1243 ID Date Data Source [id number] 01/24/2020 08:27:00 AM EDT [facility] ([facility]) Name Value Range Interpretation Code Description Data Shy rce(s) Supporting Document(s) Glucose [Mass/volume] in Capillary blood by Glucometer 205 mg/dL 83-110 Above high normal [facility] ([facility]) ID Date Data Source [id number] 01/15/2020 01:11:00 PM EDT [facility] ([facility]) Name Value Range Interpretation Code Description Data Shy rce(s) Supporting Document(s) aPTT in Platelet poor plasma by Coagulation assay 29.2 s 25.0-38.4 Normal (applies to non-numeric results) [facility]) ID Date Data Source [id number] 01/15/2020 01:11:00 PM EDT [facility] ([facility]) Name Value Range Interpretation Code Description Data Shy rce(s) Supporting Document(s) Inr 1.07 Normal (applies to non-numeric resul ts) [facility] ([facility]) THERAPUTIC HUMAN INR VALUES INDICATIONS NORMAL RANGES PROPHYLAXIS/TREATMENT OF: VENOUS THROMBOSIS 2.0-3.0 PULMONARY EMBOLISM 2.0-3.0 PREVENTION OF SYSTEMIC EMBOLISM FROM: TISSUE HEART VALVES 2.0-3.0 ACUTE MYOCARDIAL INFARCTION 2.0-3.0 VALVULAR HEART DISEASE 2.0-3.0 ATRIAL FIBRILLATION 2.0-3.0 MECHANICAL VALVES(HIGH RISK) 2.5-3.5 RECURRENT MYOCARDIAL INFARCTION 2.5-3.5 Prothrombin Time 13.6 s 11.8-14.0 Normal (applies to non-numeric results) [facility] ([facility]) ID Date Data Source [id number] 01/15/2020 01:11:00 PM EDT [facility]) Name Value Range Interpretation Code Description Data Shy rce(s) Supporting Document(s) Platelets [#/volume] in Blood by Automated count 288 10 150-450 Normal (applies to non-numeric results) [facility] ([facility]) ID Date Data Source [id number] 01/12/2020 11:42:00 AM EDT [facility] ([facility]) Name Value Range Interpretation Code Description Data Shy rce(s) Supporting Document(s) Hemoglobin 16.0 g/dL 12.0-15.5 [facility] White Blood Count 10.8 10 4.0-10.0 Above high normal [facility] ([facility]) Red Blood Count 4.64 10 4.00-5.40 Normal (applies to non-numeric results) [facility] ([facility]) Hematocrit 44.6 % 36.0-47.0 Normal (applies to non-numeric resul ts) [facility] ([facility]) Mean Corpuscular Volume 96.1 fl 80.0-96.0 Above high [facility] Mean Corpuscular Hemoglobin 34.5 pg 27.0-33.0 Above high normal [facility] ([facility]) Mean Corpuscular HGB Conc 35.9 g/dL 32.0-36.5 Normal (applies to non-numeric results) [facility] ([facility]) Red Cell Distribution Width 13.2 % 11.5-14.5 Norm al (applies to non-numeric results) [facility] ([facility]) Platelet Count, Automated 349 10 150-450 Normal (applies to non-numeric results) [facility] ([facility]) Neutrophils % 69.4 % 36.0-66.0 Above high normal [facility] ([facility]) Eos % 4.9 % 0.0-3.0 Above high normal [facility] ([facility]) Starke % 7.2 % 0.0-5.0 Above high normal [facility] ([facility]) Lymph % 17.3 % 24.0-44.0 Below low normal [facility] ( [facility]) Immature Granulocyte % 0.4 % 0-3.0 Normal (applies to non-n umeric results) [facility] ([facility], ) Baso % 0.8 % 0.0-1.0 Normal (applies to non-numeric resul ts) [facility]) Nucleated Red Blood Cell % 0.0 % 0-0 Normal (applies to n on-numeric results) [facility] ([facility]) Neutrophils # 7.5 10 1.5-8.5 Normal (applies to non-numeric re sults) [facility] ([facility]) Lymph # 1.9 10 1.5-5.0 Normal (applies to non-numeric resul ts) [facility]) Starke # 0.8 10 0.0-0.8 Normal (applies to non-numeric resul ts) [facility]) Baso # 0.1 10 0.0-0.2 Normal (applies to non-numeric resul ts) [facility]) Eos # 0.5 10 0.0-0.5 Normal (applies to non-numeric resul ts) [facility] ([facility]) ID Date Data Source [id number] 01/12/2020 11:42:00 AM EDT [facility] ([facility]) Name Value Range Interpretation Code Description Data Shy rce(s) Supporting Document(s) Alt/SGPT 33 U/L 12-78 Normal (applies to non-numeric resul ts) [facility] ([facility]) Ast/Sgot 24 U/L 7-37 Normal (applies to non-numeric resul ts) [facility]) Bilirubin,Total 0.8 mg/dL 0.2-1.0 Normal (applies to non-numeric results) [facility]) Bilirubin,Direct 0.2 mg/dL 0.0-0.2 Normal (applies to non-numeric results) [facility]) Alkaline Phosphatase 69 U/L 45-117 Normal (applies to non-num dana results) [facility]) Albumin 4.0 GM/DL 3.2-5.2 Normal (applies to non-numeric resul ts) [facility] ([facility]) Total Protein 7.3 GM/DL 6.4-8.2 Normal (applies to non-numeric re sults) [facility] ([facility]) Albumin/Globulin Ratio 1.21 1.00-1.93 Normal (applies to non-numeric results) [facility] ([facility]) ID Date Data Source [id number] 01/12/2020 11:42:00 AM EDT [facility] ([facility]) Name Value Range Interpretation Code Description Data Shy rce(s) Supporting Document(s) Glomerular Filtration Rate 28.5 Below low normal [facility] ([facility]) <content>Units are mL/min/1.73 m2</content>
<content></content>
<content>Chronic Kidney Disease Staging per NKF:</content>
<content></content>
<content>Stage I & II GFR >=60 Normal to Mildly Decreased</content>
<content>Stage III GFR 30- 59 Moderately Decreased</content>
<content>Stage IV GFR 15-29 Severely Decreased</content>
<content>Stage V GFR <15 Very Little GFR Left</content>
<content>ESRD GFR <15 on GAS SPECIALIST</content>
<content></content> Creatinine For GFR 1.85 mg/dL 0.55-1.30 Above high normal [facility] ([facility]) ID Date Data Source [id number] [facility] Name Value Range Interpretation Code Description Data Shy rce(s) Supporting Document(s) Calcium [Mass/volume] in Serum or Plasma 9.9 mg/dL 8.8-10. 2 Normal (applies to non-numeric results) [facility] ([facility]) ID Date Data Source [id number] [facility]/12/2020 [facility]:42[facility] Name Value Range Interpretation Code Description Data Shy rce(s) Supporting Document(s) Aspergillus Fumigatus [place] Laboratory test result Normal (applies to non- numeric results) [facility] ([facility], ) Aspergillus Flavus [place] Laboratory test result No rmal (applies to non-numeric results) [facility] ([facility]) Aspergillus Niger [place] Laboratory test result Nor mal (applies to non-numeric results) [facility] ([facility]) Performed at: [address] [id number] [employer] Planning Engineer: Audrey Mccarty MD, Phone: [phone] ID Date Data Source [id number] 01/12/2020 11:42:00 AM EDT [facility] ([facility]) Name Value Range Interpretation Code Description Data Shy rce(s) Supporting Document(s) Aureobasidium [place] Laboratory test result N ormal (applies to non-numeric results) [facility] ([facility]) Aspergillus Fumigatus AB Laboratory test result Normal (applies to non-numeric results) [facility] ([facility]) [place] Serum AB Laboratory test result Normal (a pplies to non-numeric results) [facility] ([facility]) Performed at: [address] [place] [id number] Transportation Planning Engineer: Len Lorenz MD, Phone: [phone] Performed at: [address] [id number] Transportation Planning Engineer: Regina Cartwright MD, Phone: [phone] Performed at: [address] [id number] Transportation Planning Engineer: Audrey Mccarty MD, Phone: [phone] Micropolyspora Faeni AB Laboratory test result N ormal (applies to non-numeric results) [facility] ([facility]) Thermoactinomyces Sacchari Laboratory test result Normal (applies to non- numeric results) [facility] ([facility]) Thermoactinomyces Vulgaris Laboratory test result Normal (applies to non- numeric results) [facility] ([facility]) ID Date Data Source [id number] 01/12/2020 11:42:00 AM EDT [facility]) Name Value Range Interpretation Code Description Data Shy rce(s) Supporting Document(s) Histoplasmosis Antibody Laboratory test result N ormal (applies to non-numeric results) [facility] ([facility]) Cryptococcus sp Ag [Presence] in Serum by Immunoassay Laboratory test result Normal (applies to non-numeric results) [facility] ([facility]) Blastomyces Antibody Level Laboratory test result Normal (applies to non- numeric results) [facility]) Coccidioides sp Ab [Units/volume] in Serum 0.3 IV Normal (applies to non- numeric results) [facility] ([facility]) INTERPRETIVE INFORMATION: Coccidioides A ntibody, Ig.9 IV or less: Negative - No signif icant level of Coccidioides IgG antibody detected. 1.0 - 1.4 IV: Equivocal - Question able presence of Coccidioides IgG antibody detected. Repeat testing in 10-14 days may be helpful. 1.5 IV or greater: Positive - Presence of IgG antibody to Coccidioides detected, suggestive of current or past infection. IgG antibody usually appears by the third week of infection and may persist for years. Both tube precipitin (TP) and CF antigens are represented in the ROBBY tests. Angiotensin converting enzyme [Enzymatic activity/volu me] in Serum or Plasma 33 U/L 14-82 Normal (applies to non-numeric results) [facility]) ID Date Data Source [id number] 01/05/2020 10:31:00 AM EDT [facility]) Name Value Range Interpretation Code Description Data Shy rce(s) Supporting Document(s) Gram Stain Laboratory test result Normal (applies to non-n umeric results) [facility]) QUALITY: POOR MANY EPITHELIAL CELLS MANY WBCS MANY GRAM POSITIVE RODS MANY GRAM POSITIVE COCCI IN PAIRS, CHAINS AND CLUSTERS Sputum Culture Laboratory test result [facility] ([facility]) Sputum culture not performed due to orop haryngeal contamination. Further processing of such specimens would not yield useful information about the possible pathogens from the lower respiratory tract. Test not performed ID Date Data Source LIPID PANEL (CARDIAC RISK) 10/30/2019 12:00:00 AM EST eCW1 ( [facility]) Name Value Range Interpretation Code Description Data Shy rce(s) Supporting Document(s) Triglyceride [Mass/volume] in Serum or Plasma by calculation 145 <150 TRIGLYCERIDES LEVEL eCW1 ([facility]) Cholesterol [Moles/volume] in Serum or Plasma 131 <200 CHOLESTEROL LEVEL eCW1 ([facility]) Cholesterol in HDL [Moles/volume] in Serum or Plasma 45 >40 HDL CHOLESTEROL eCW1 ([facility]) Cholesterol in LDL [Mass/volume] in Serum or Plasma by calculation 57 <100 LDL CHOLESTEROL eCW1 ([facility]) 2.911 <5 CHOLESTEROL RISK RATIO eCW1 ([facility]) 86 NON-HDL-C eCW1 ([facility]) ID Date Data Source [id number] 10/30/2019 12:00:00 AM EST eCW1 ([facility]) Name Value Range Interpretation Code Description Data Shy rce(s) Supporting Document(s) Hemoglobin A1c/Hemoglobin.total in Blood 7.4 HEMOGLOBIN A1c eCW1 ([facility]) ID Date Data Source FREE T4 & TSH PANEL 10/30/2019 12:00:00 AM EST eCW1 ([facility]) Name Value Range Interpretation Code Description Data Shy rce(s) Supporting Document(s) 1.36 0.76-1.46 FREE T4 eCW1 ([facility]) 2.980 0.358-3.740 THYROID STIMULATING HORM ONE eCW1 ([facility]) ID Date Data Source Comprehensive Metabolic Profile (CMP) 10/30/2019 12:00:00 AM EST eCW1 ([facility]) Name Value Range Interpretation Code Description Data Shy rce(s) Supporting Document(s) 193 70-100 GLUCOSE, FASTING eCW1 ([facility]) 33.7 >39 GLOMERULAR FILTRATION RATE eCW 1 ([facility]) 1.60 0.55-1.30 CREATININE FOR GFR eCW1 ([facility]) 34 7-18 BLOOD UREA NITROGEN eCW1 ([facility]) 3.9 3.5-5.1 POTASSIUM SERUM eCW1 ([facility]) 139 136-145 SODIUM LEVEL eCW1 ([facility]) 103 98-107 CHLORIDE LEVEL eCW1 ([facility]) 28 21-32 CARBON DIOXIDE LEVEL eCW1 ([facility]) 55 45-117 ALKALINE PHOSPHATASE eCW1 ([facility]) 38 12-78 ALT/SGPT eCW1 ([facility]) 31 7-37 AST/SGOT eCW1 ([facility]) 9.6 8.8-10.2 CALCIUM LEVEL eCW1 ([facility]) 6.8 6.4-8.2 TOTAL PROTEIN eCW1 ([facility]) 1.34 1.00-1.93 ALBUMIN/GLOBULIN RATIO eCW1 ([facility]) 3.9 3.2-5.2 ALBUMIN eCW1 ([facility]) 1.1 0.2-1.0 BILIRUBIN,TOTAL eCW1 ([facility]) Procedure Social History Code Duration Value Status Description Data Source(s ) Smoking 07/25/2020 12:00:00 AM EST Never Smoker completed Never S moker eCW1 ([facility]) Smoking 07/25/2020 12:00:00 AM EST Never Smoker completed Never S moker eCW1 ([facility]) Smoking 07/25/2020 12:00:00 AM EST Never Smoker completed Never S moker eCW1 ([facility]) Smoking 07/25/2020 12:00:00 AM EST Never Smoker completed Never S moker eCW1 ([facility]) Smoking 07/25/2020 12:00:00 AM EST Never Smoker completed Never S moker eCW1 ([facility]) Smoking 05/08/2020 12:00:00 AM EDT Patient has never smoked co mpleted Patient has never smoked [facility] ([facility]) Smoking 02/08/2020 12:00:00 AM EDT Never Smoker completed Never S moker eCW1 ([facility]) Smoking 02/08/2020 12:00:00 AM EDT Never Smoker completed Never S moker eCW1 ([facility]) 12/12/2019 12:00:00 AM EDT Never Smoked Cigarettes com pleted Never Smoked Cigarettes [facility] ([facility], ) Vital Signs ID Date Data Source UNK Name Value Range Interpretation Code Description Data Source(s) Diastolic blood pressure 81 mm[Hg] 81 mm[Hg] eCW1 ([facility]) Systolic blood pressure 131 mm[Hg] 131 mm[Hg] e CW1 ([facility]) Body temperature 98.3 [degF] 98.3 [degF] eCW1 ( [facility]) Respiratory rate 18 /min 18 /min eCW1 ([facility]) Heart rate 76 /min 76 /min eCW1 ([facility]) Body mass index (BMI) [Ratio] 42.43 kg/m2 42.43 kg/m2 W1 ([facility]) Body height [in_i] eCW1 ([facility]) Body weight [lb_av] eCW1 ([facility]) Diastolic blood pressure 81 mm[Hg] 81 mm[Hg] eCW1 ([facility]) Systolic blood pressure 131 mm[Hg] 131 mm[Hg] e CW1 ([facility]) Body temperature 98.3 [degF] 98.3 [degF] eCW1 ( [facility]) Respiratory rate 18 /min 18 /min eCW1 ([facility]) Heart rate 76 /min 76 /min eCW1 ([facility]) Body mass index (BMI) [Ratio] 42.43 kg/m2 42.43 kg/m2 eCW1 ([facility]) Body height [in_i] eCW1 ([facility]) Body weight [lb_av] eCW1 ([facility]) Body weight 102.060 kg 102.060 kg [facility] ([facility] ) [place] body weight 105 [lb_av] 105 [lb_av] [facility] T ([facility], ) Body mass index (BMI) [Ratio] 41.8 kg/m2 41.8 k g/m2 [facility] ([facility]) Body weight 225.00 [lb_av] 225.00 [lb_av] [facility] T ([facility]) Body height 61.5 [in_i] 61.5 [in_i] [facility] ([facility]) 5'1.50" Body temperature 98.1 [degF] 98.1 [degF] [facility] ([facility]) Oxygen saturation in Arterial blood by Pulse oximetry 98 % 98 % [facility] ([facility]) Heart rate 106 /min 106 /min [facility] ([facility]) Diastolic blood pressure 78 mm[Hg] 78 mm[Hg] [facility] ([facility]) Systolic blood pressure 132 mm[Hg] 132 mm[Hg] [facility] Body weight 101.153 kg 101.153 kg [facility] ([facility]) [place] body weight 105 [lb_av] 105 [lb_av] [facility] T ([facility]) Body mass index (BMI) [Ratio] 41.4 kg/m2 41.4 k g/m2 [facility] ([facility]) Body weight 223.00 [lb_av] 223.00 [lb_av] [facility] T ([facility]) Body height 61.5 [in_i] 61.5 [in_i] [facility] ([facility]) 5'1.50" Diastolic blood pressure 77 mm[Hg] 77 mm[Hg] eCW1 ([facility]) Systolic blood pressure 132 mm[Hg] 132 mm[Hg] e CW1 ([facility]) Body temperature 98.7 [degF] 98.7 [degF] eCW1 ( [facility]) Respiratory rate 18 /min 18 /min eCW1 ([facility]) Heart rate 82 /min 82 /min eCW1 ([facility]) Body mass index (BMI) [Ratio] 40.78 kg/m2 40.78 kg/m2 eCW1 ([facility]) Body height [in_us] eCW1 ([facility]) Body weight Measured [lb_av] eCW1 ([facility]) Body weight 101.606 kg 101.606 kg [facility] ([facility]) Body mass index (BMI) [Ratio] 41.6 kg/m2 41.6 k g/m2 [facility] ([facility]) Body weight 224.00 [lb_av] 224.00 [lb_av] [facility] T ([facility]) Body height 61.5 [in_i] 61.5 [in_i] [facility] ([facility]) 5'1.50" Body temperature 98.3 [degF] 98.3 [degF] [facility] ([facility]) Oxygen saturation in Arterial blood by Pulse oximetry 98 % 98 % [facility] ([facility]) Heart rate 83 /min 83 /min [facility] ([facility]) Diastolic blood pressure 80 mm[Hg] 80 mm[Hg] [facility] ([facility]) Systolic blood pressure 150 mm[Hg] 150 mm[Hg] [facility] Body weight 99.792 kg 99.792 kg [facility] ([facility]) Body mass index (BMI) [Ratio] 40.9 kg/m2 40.9 k g/m2 [facility] ([facility]) Body weight 220.00 [lb_av] 220.00 [facility]_av] [facility] Body height 61.5 [in_i] 61.5 [in_i] [facility] ([facility]) 5'1.50" Body temperature 98.7 [degF] 98.7 [degF] [facility] ([facility]) Oxygen saturation in Arterial blood by Pulse oximetry 98 % 98 % [facility] ([facility]) Heart rate 91 /min 91 /min [facility] ([facility]) Diastolic blood pressure 70 mm[Hg] 70 mm[Hg] [facility] ([facility]) Systolic blood pressure 142 mm[Hg] 142 mm[Hg] [facility] Body weight 99.792 kg 99.792 kg [facility] ([facility]) Body mass index (BMI) [Ratio] 40.9 kg/m2 40.9 k g/m2 [facility] ([facility]) Body weight 220.00 [lb_av] 220.00 [lb_av] [facility] T ([facility]) Body height 61.5 [in_i] 61.5 [in_i] [facility] ([facility]) 5'1.50" Oxygen saturation in Arterial blood by Pulse oximetry 97 % 97 % [facility] ([facility]) Heart rate 94 /min 94 /min [facility] ([facility]) Diastolic blood pressure 80 mm[Hg] 80 mm[Hg] [facility] ([facility]) Systolic blood pressure 120 mm[Hg] 120 mm[Hg] M [facility] ([facility]) Diastolic blood pressure 77 mm[Hg] 77 mm[Hg] eCW1 ([facility]) Systolic blood pressure 144 mm[Hg] 144 mm[Hg] e CW1 ([facility]) Body temperature 98.7 [degF] 98.7 [degF] eCW1 ( [facility]) Respiratory rate 18 /min 18 /min eCW1 ([facility]) Heart rate 85 /min 85 /min eCW1 ([facility]) Body mass index (BMI) [Ratio] 40.78 kg/m2 40.78 kg/m2 eCW1 ([facility]) Body height [in_us] eCW1 ([facility]) Body weight Measured [lb_av] eCW1 ([facility]) Body temperature 99.2 [degF] 99.2 [degF] eCW1 ( [facility]) Respiratory rate 18 /min 18 /min eCW1 ([facility]) Heart rate 90 /min 90 /min eCW1 ([facility]) Body mass index (BMI) [Ratio] 40.23 kg/m2 40.23 kg/m2 eCW1 ([facility]) Body height [in_us] eCW1 ([facility]) Body weight Measured 220 [lb_av] 220 [lb_av] eC W1 ([facility]) Patient Treatment Plan of Care Planned Activity Planned Date Details Description Data Source (s) Linagliptin 5 MG Oral Tablet [Tradjenta] 02/08/2020 12:00:00 AM EDT eCW1 ([facility]) Linagliptin 5 MG Oral Tablet [Tradjenta] 02/08/2020 12:00:00 AM EDT eCW1 ([facility]) Linagliptin 5 MG Oral Tablet [Tradjenta] 02/08/2020 12:00:00 AM EDT eCW1 ([facility]) Famotidine 20 MG Oral Tablet 11/30/2019 12:00:00 AM EDT eCW1 ([facility]) telmisartan 40 MG Oral Tablet 11/07/2019 12:00:00 AM EST eCW1 ([facility]) telmisartan 40 MG Oral Tablet 11/07/2019 12:00:00 AM EST eCW1 ([facility]) telmisartan 40 MG Oral Tablet 11/07/2019 12:00:00 AM EST eCW1 ([facility]) telmisartan 40 MG Oral Tablet 11/07/2019 12:00:00 AM EST eCW1 ([facility]) telmisartan 40 MG Oral Tablet 11/07/2019 12:00:00 AM EST eCW1 ([facility]) Prednisone 20 MG Oral Tablet 10/09/2019 12:00:00 AM EST eCW1 ([facility]) Loratadine 10 MG Oral Tablet [Claritin] 10/09/2019 12:00:00 AM EST eCW1 ([facility])
--- OUTSIDE RECORDS SUMMARY | 2020-10-03 12:32 | CCD ---
Author Author [facility] Organization [facility] Address Unknown Phone Unavailable Care Team Providers Care Water Registrar Name Role Phone Bran NARANJO MD Unavailable [...] is protected by Article 27-F of the [facility] Public Health law. If you continue you may have access to information: Regarding HIV / AIDS; Provided by facilities licensed or operated by the [facility] Office of Mental Health; or Provided by the [facility] Office for People With Developmental Disabilities. If such information is present, then the following [facility] mandated warning applies: This information has been [...] law may result in a fine or intermediate sentence or both. A general authorization for the release of medical or other information is NOT sufficient authorization for further disc losure. Allergies and Adverse Reactions Type Description Substance Reaction Status Data Source(s ) codeine Codeine Sulfate Codeine Vomit Active eCW1 ([facility]) Drug allergy Bactrim DS sulfamethoxazole / trimethoprim Vomit Ac tive eCW1 ([facility]) Darvocet-N 100 Darvocet-N 100 Darvocet-N 100 headache Active eC W1 ([facility]) Erythromycin Erythromycin Erythromycin 500 MG Delayed Rele ase Oral Tablet Hives Active eCW1 ([facility]) Amoxicillin-Pot Clavulanate Amoxicillin-Pot Clavulanate Amox icillin-Pot Clavulanate Diarrhea Active eCW1 ([facility]) Darvocet-N 100 Darvocet-N 100 Darvocet-N 100 headache Active eC W1 ([facility]) Amoxicillin-Pot Clavulanate Amoxicillin-Pot Clavulanate Amox icillin-Pot Clavulanate Diarrhea Active eCW1 ([facility]) Codeine Sulfate Codeine Sulfate Codeine Sulfate Vomit Active eCW1 ([facility]) Darvocet-N 100 Darvocet-N 100 Darvocet-N 100 headache Active eC W1 ([facility]) Amoxicillin-Pot Clavulanate Amoxicillin-Pot Clavulanate Amox icillin-Pot Clavulanate Diarrhea Active eCW1 ([facility]) Family History Family Member Name Family Member Gender Family Member Status Date o f Status Description Data Source(s) Unknown Unknown Problem MEDENT ([employer] [employer]) Encounters Encounter Providers Location Date Indications Data Source(s ) Unknown [address] [facility] [place] [address] 08/06/2020 12:00:00 AM EST eCW1 ([facility]) Unknown [address] [facility] [place] [address] 08/02/2020 12:00:00 AM EST eCW1 ([facility]) [place] [address] [facility] [address] [place] [address] 07/31/2020 12:00:00 AM EST eCW1 ([facility]) Outpatient [address] [facility] Y [address] 07/25/2020 12:00:00 AM EST eCW1 ([facility]) Unknown [address] [facility] [address] [place] [address] 06/25/2020 12:00:00 AM EDT eCW1 ([facility]) Outpatient Attender: ANIKET Roldan/[place]esfaye/Darian/Jaz 05/08/2020 03:00:00 PM EDT MED[facility] ([facility] [address] [facility] [address] [place] [address] 05/01/2020 12:00:00 AM EDT eCW1 ([facility]) Unknown [address] [facility] Y [address] 04/03/2020 12:00:00 AM EDT eCW1 ([facility]) Outpatient Attender: ANGELIQUE Naranjo/[place]/Darian/Reind l 02/19/2020 01:45:00 PM EDT [facility] ([facility] [place] [address] [facility] [place] [address] 02/08/2020 12:00:00 AM EDT eCW1 ([facility]) [facility] [place] [address] [place] [address] 02/05/2020 12:00:00 AM EDT eCW1 ([facility]) Outpatient 02/04/2020 07:18:00 AM EDT [facility] [place] [address] [place] [address] [place] [address] 02/02/2020 12:00:00 AM EDT eCW1 ([facility]) Outpatient Attender: ANIKET Roldan/[place]/Darian/Reindl 02/01/2020 10:00:00 AM EDT [facility] ([facility] [place] [address] [place] [address], [place] [address] 01/25/2020 12:00:00 AM EDT eCW1 ([facility]) Outpatient 01/23/2020 04:56:00 AM EDT [facility] Outpatient Attender: ANIKET Roldan/[place]/Darian/Reindl 01/12/2020 11:30:00 AM EDT MED[facility] ([facility] [place] [address] [place] [address] 01/11/2020 12:00:00 AM EDT [facility]1 [facility] [place] [address] [facility] [address] 01/02/2020 12:00:00 AM EDT eCW1 ([facility]) [facility] [place] [address] [place] [address], [place] [address] 12/25/2019 12:00:00 AM EDT eCW1 ([facility]) [facility] [place] [address] [place] [address], [place] [address] 12/25/2019 12:00:00 AM EDT eCW1 ([facility]) Outpatient Attender: ANIKET Roldan/[place]esfaye/Darian/Jaz 12/12/2019 08:30:00 AM EDT [facility] ([facility] [address] [facility] [place] [address] 12/11/2019 12:00:00 AM EDT eCW1 ([facility]) [facility] [address] [facility] [place] [address] 12/11/2019 12:00:00 AM EDT eCW1 ([facility]) [facility] [place] [address] [place] [address] 11/30/2019 12:00:00 AM EDT eCW1 ([facility]) [facility] [place] [address] [place] [address] 11/13/2019 12:00:00 AM EST eCW1 ([facility]) [facility] [place] [address] [place] [address] [place] [address] 11/07/2019 12:00:00 AM EST eCW1 ([facility]) [facility] [place] [address] [place] [address] 11/06/2019 12:00:00 AM EST eCW1 ([facility]) [facility] [place] [address] [place] [address] 11/01/2019 12:00:00 AM EST eCW1 ([facility]) [facility] [place] [address] [place] [address] 11/01/2019 12:00:00 AM EST eCW1 ([facility]) [facility] [place] [address] [place] [address] 10/30/2019 12:00:00 AM EST eCW1 ([facility]) [facility] [place] [address] [place] [address] 10/24/2019 12:00:00 AM EST eCW1 ([facility]) Outpatient 10/13/2019 01:45:00 PM EST [facility] [place] [address] [facility] [address] 10/10/2019 12:00:00 AM EST eCW1 ([facility]) [facility] [place] [address] [place] [address] 10/09/2019 12:00:00 AM EST eCW1 ([facility]) [facility] [place] [address] [place] [address] 10/02/2019 12:00:00 AM EST eCW1 ([facility]) [facility] [place] [address] [place] [address] 09/21/2019 12:00:00 AM EST eCW1 ([facility]) Outpatient 09/19/2019 05:23:00 AM EST [facility] [place] [address] [place] [phone] 08/23/2019 12:00:00 AM EST eCW1 ([facility]) Immunizations Vaccine Date Status Description Data Source(s) pneumococcal polysaccharide PPV23 07/25/2020 11:28:00 AM EST comple sylvia eCW1 ([facility]) pneumococcal polysaccharide PPV23 07/25/2020 11:28:00 AM EST comple sylvia eCW1 ([facility]) pneumococcal polysaccharide PPV23 07/25/2020 11:28:00 AM EST comple sylvia eCW1 ([facility]) pneumococcal polysaccharide PPV23 07/25/2020 11:28:00 AM EST comple sylvia eCW1 ([facility]) pneumococcal polysaccharide PPV23 07/25/2020 11:28:00 AM EST comple sylvia eCW1 ([facility]) IIV3. This is one of two codes replacing CVX 15, which is being retired. 06/23/2020 10:48:00 AM EDT completed eCW1 ([facility]) IIV3. This is one of two codes replacing CVX 15, which is being retired. 06/23/2020 10:48:00 AM EDT completed eCW1 ([facility]) IIV3. This is one of two codes replacing CVX 15, which is being retired. 06/23/2020 10:48:00 AM EDT completed eCW1 ([facility]) IIV3. This is one of two codes replacing CVX 15, which is being retired. 06/23/2020 10:48:00 AM EDT completed eCW1 ([facility]) IIV3. This is one of two codes replacing CVX 15, which is being retired. 06/23/2020 10:48:00 AM EDT completed eCW1 ([facility]) Medications Medication Brand Name Start Date Product [...] 1.0 {tablet} active Tradjenta 5 MG eCW1 ([facility]) 5 mg 02/08/2020 12:00:00 AM EDT tablet 90 TAKE ONE TABLET BY MOUTH EVERY DAY TAKE ONE TABLET BY MOUTH EVERY DAY SOLD: 02/08/2020 [facility] Linagliptin 5 MG Oral Tablet [Tradjenta] Tradjenta 5 MG Trad jenta 5 MG 02/08/2020 12:00:00 AM EDT 1.0 {tablet} active Tradjenta 5 MG eCW1 ([facility]) 5 mg 02/08/2020 12:00:00 AM EDT tablet 90 TAKE ONE TABLET BY MOUTH EVERY DAY TAKE ONE TABLET BY MOUTH EVERY DAY SOLD: 05/01/2020 [facility] Linagliptin 5 MG Oral Tablet [Tradjenta] Tradjenta 5 MG Trad jenta 5 MG 02/08/2020 12:00:00 AM EDT active 1 tablet eCW1 ([facility]) 40 mg 02/02/2020 12:00:00 AM EDT tablet [...] 01/26/2020 12:00:00 AM EDT ORAL completed MEDENT ([facility], ) 120 ACTUAT Fluticasone propionate 0.23 M G/ACTUAT / salmeterol 0.021 MG/ACTUAT Metered Dose Inhaler [Advair] Advair HFA 01/12/2020 12:00:00 AM EDT RESPIRATORY active MEDENT ( [facility], ) Aerochamber Plus Abilio-Vu 01/12/2020 12:00:00 AM EDT active MEDENT ([facility], ) Levofloxacin 500 MG Oral Tablet Levofloxacin 01/04/2020 12:00:00 AM E DT ORAL completed MEDENT ([facility], ) Codeine Phosphate 2 MG/ML / Guaifenesin 20 MG/ML Oral Soluti on Virtussin A/C 12/26/2019 12:00:00 AM EDT ORAL completed MEDENT ([facility], ) Ipratropium [place] Ipratropium [place] 12/12/2019 12:00:00 AM EDT NASAL active MEDENT ([facility], ) benzonatate 200 MG Oral Capsule BENZONATATE [...] tablet at bedtime as ne eded eCW1 ([facility]) benzonatate 200 MG Oral Capsule BENZONATATE 11/30/2019 [...] 12:00:00 AM EST active 1 tablet eCW1 ([facility]) telmisartan 40 MG Oral Tablet Telmisartan 40 MG Telmisartan 40 MG 11/07/2019 12:00:00 AM EST active 1 tablet eCW1 ([facility]) 40 mg 11/07/2019 12:00:00 AM EST tablet [...] 12:00:00 AM EST active 1 tablet eCW1 ([facility]) telmisartan 40 MG Oral Tablet Telmisartan 40 MG Telmisartan 40 MG 11/07/2019 12:00:00 AM EST 1.0 {tablet} active Te lmisartan 40 MG eCW1 ([facility]) telmisartan 40 MG Oral Tablet Telmisartan 40 MG Telmisartan 40 MG 11/07/2019 12:00:00 AM EST 1.0 {tablet} active Te lmisartan 40 MG eCW1 ([facility]) Prednisone 20 MG Oral Tablet PredniSONE 20 MG PredniSONE 20 MG 10/09/2019 12:00:00 AM EST suspended 2 tab let eCW1 ([facility]) Loratadine 10 MG Oral Tablet [Claritin] Claritin 10 MG Sis tin 10 MG 10/09/2019 12:00:00 AM EST 1.0 {tablet} active C laritin 10 MG eCW1 ([facility]) 10 mg 10/09/2019 12:00:00 AM EST tablet 30 TAKE ONE TABLET BY MOUTH EVERY DAY TAKE ONE TABLET BY MOUTH EVERY DAY SOLD: 10/28/2019 [facility] Loratadine 10 MG Oral Tablet [Claritin] Claritin 10 MG Sis tin 10 MG 10/09/2019 12:00:00 AM EST active 1 table t eCW1 ([facility]) Loratadine 10 MG Oral Tablet [Claritin] Claritin 10 MG Sis tin 10 MG 10/09/2019 12:00:00 AM EST active 1 table t eCW1 ([facility]) Prednisone 20 MG Oral Tablet PredniSONE 20 MG PredniSONE 20 MG 10/09/2019 12:00:00 AM EST 2.0 {tablet} suspended PredniSONE 20 MG eCW1 ([facility]) 90 mcg/actuation 10/09/2019 12:00:00 AM EST HFA aerosol inha ler 18 INHALE TWO PUFFS BY MOUTH EVERY 6 HOURS NEEDED INHALE TWO PUFFS BY MOUTH EVERY 6 HOURS NEEDED SOLD: 10/09/2019 [facility] 10 mg 10/09/2019 12:00:00 AM EST tablet 30 TAKE ONE TABLET BY MOUTH EVERY DAY TAKE ONE TABLET BY MOUTH EVERY DAY SOLD: 10/09/2019 [facility] Prednisone 20 MG Oral Tablet PredniSONE 20 MG PredniSONE 20 MG 10/09/2019 12:00:00 AM EST active 2 tablet eCW1 ([facility]) Loratadine 10 MG Oral Tablet [Claritin] Claritin 10 MG Sis tin 10 MG 10/09/2019 12:00:00 AM EST 1.0 {tablet} active C laritin 10 MG eCW1 ([facility]) Loratadine 10 MG Oral Tablet [Claritin] Claritin 10 MG Sis tin 10 MG 10/09/2019 12:00:00 AM EST active 1 table t eCW1 ([facility]) 20 mg 10/09/2019 12:00:00 AM EST tablet 10 TAKE TWO TABLETS BY MOUTH EVERY DAY FOR 5 DAYS TAKE TWO TABLETS BY MOUTH EVERY DAY FOR 5 DAYS SOLD: 020 [facility] Prednisone 20 MG Oral Tablet PredniSONE 20 MG PredniSONE 20 MG 10/09/2019 12:00:00 AM EST suspended 2 tab let eCW1 ([facility]) Prednisone 20 MG Oral Tablet PredniSONE 20 MG PredniSONE 20 MG 10/09/2019 12:00:00 AM EST 2.0 {tablet} suspended PredniSONE 20 MG eCW1 ([facility]) 10 mg 10/09/2019 12:00:00 AM EST tablet 30 TAKE ONE TABLET BY MOUTH EVERY DAY TAKE ONE TABLET BY MOUTH EVERY DAY SOLD: 11/26/2019 [facility] Insurance Providers Payer name Policy type / Coverage type Policy ID Covered democrat ID Covered democrat's relationship to isidro Policy Isidro Plan Information AETNA MEDICARE [id number] SP [id number] AETNA MEDICARE O [id number] S [id number] 7YC AETNA MEDICARE [id number] SP [id number] 7YC AETNA MEDICARE O [id number] S [id number] 7YC AETNA MEDICARE [id number] SP [id number] 7YC AETNA MEDICARE O [id number] S [id number] ANSI-Medicare Part B [id number] ANSI-Medicare Part B [id number] ANSI-Medicare Part B [id number] ANSI-Medicare Part B [id number] ANSI-Medicare Part B [id number] ANSI-Medicare Part B [id number] ANSI-Medicare Part B [id number] ANSI-Medicare Part B [id number] ANSI-Medicare Part B [id number] ANSI-Medicare Part B [id number] Aetna Commercial [id number] ANSI-Medicare Part B [id number] ANSI-Medicare Part B [id number] ANSI-Medicare Part B [id number] ANSI-Medicare Part B [id number] ANSI-Medicare Part B [id number] ANSI-Medicare Part B [id number] ANSI-Medicare Part B [id number] ANSI-Medicare Part B [id number] ANSI-Medicare Part B [id number] ANSI-Medicare Part B [id number] ANSI-Medicare Part B [id number] ANSI-Medicare Part B [id number] ANSI-Medicare Part B [id number] ANSI-Medicare Part B [id number] ANSI-Medicare Part B [id number] ANSI-Medicare Part B [id number] ANSI-Medicare Part B [id number] ANSI-Medicare Part B [id number] ANSI-Medicare Part B [id number] ANSI-Medicare Part B [id number] ANSI-Medicare Part B [id number] ANSI-Medicare Part B [id number] ANSI-Medicare Part B [id number] ANSI-Medicare Part B [id number] ANSI-Medicare Part B [id number] ANSI-Medicare Part B [id number] ANSI-Medicare Part B [id number] ANSI-Medicare Part B [id number] AETNA MEDICARE [id number] SP [id number] MEDICARE COMPLETE [id number] SP [id number] ANSI-Medicare Part B [id number] ANSI-Medicare Part B [id number] ANSI-Medicare Part B [id number] ANSI-Medicare Part B [id number] MEDICARE COMPLETE [id number] ANSI-Medicare Part B [id number] ANSI-Medicare Part B [id number] ANSI-Medicare Part B [id number] ANSI-Medicare Part B [id number] ANSI-Medicare Part B [id number] ANSI-Medicare Part B [id number] ANSI-Medicare Part B [id number] [facility]-Med[facility] Part B [id number] ANS-Medicare Part B [id number] [facility]-Medicare Part B [id number] ANSI-Medicare Part B [id number] MEDICARE COMPLETE-[facility] O [id number] S [id number] [employer] [place] [id number] S [id number] [employer] MEDICARE [place] [id number] S [id number] Problems, Conditions, and Diagnoses Code Display Name Description Problem Type Effective Dates Data Source(s) D86.9 51474473 Sarcoidosis Problem 02/08/2020 12:00:00 AM E DT eCW1 ([facility]) D86.9 40245806 Sarcoidosis Problem 02/08/2020 12:00:00 AM E DT eCW1 ([facility]) [id number] Sarcoidosis Sarcoidosis Problem 02/01/2020 12:00:00 AM EDT MEDENT ([facility], ) Encounter for preprocedural laboratory e xamination Encounter for preprocedural laboratory examination Problem 01/12/2020 12:00:00 AM EDT MEDENT ([facility], ) [id number] Chronic sinusitis Chronic sinusitis Problem 01/12/2020 12:00:00 AM EDT [facility] ([facility], ) Other nonspecific abnormal finding of blanco ng field Other nonspecific abnormal finding of lung field Problem 12/12/2019 12:00:00 AM EDT [facility]) [id number] Pulmonary function studies abnormal Pulm onary function studies abnormal Problem 12/12/2019 12:00:00 AM EDT [facility] ([facility]) [id number] Cough Cough Problem 12/12/2019 12:00:00 AM ED T [facility] ([facility]) Surgeries/Procedures Procedure Description Date Indications Data Source(s) PNEUMOCOCCAL POLYSAC VACCINE 23-V 2 />YR SUBQ/IM 07/25 12:00:00 AM EST eCW1 ([facility]) Bronchospasm Evaluation 05/08/2020 12:00:00 AM EDT [facility] ([facility]) Maximum Breathing Capacity, Maximal Voluntary Ventilation 05/08/2020 12:00:00 AM EDT [facility] ([facility]) Plethysmography Determination Lung Volumes & Per Airway Resi st 05/08/2020 12:00:00 AM EDT [facility] ([facility]) DIFFUSING CAPACITY 05/08/2020 12:00:00 AM EDT [facility] ([facility]) Office Visit, Est Pt., Level 1 FC 02/08/2020 12:00:00 AM EDT eCW1 ([facility]) Office Visit, Est Pt., Level 3 PC 02/08/2020 12:00:00 AM EDT eCW1 ([facility]) Bronchoscopy W/Bronchial Alveolar Lavage 01/24/2020 12 :00:00 AM EDT [facility] ([facility]) Bronchoscopy W/Transbronchial Lung Biopsy 01/24/2020 1 2:00:00 AM EDT [facility] ([facility]) Bronchoscopy W/Transbronchial Lung Biopsy(S) Each Additional Lobe 01/24/2020 12:00:00 AM EDT [facility] ([facility]) With Endobronchial Ultrasound Guided 01/24/2020 12:00: 00 AM EDT [facility] ([facility]) Aerosol Or Vapor Inhalations 01/12/2020 12:00:00 AM ED T [facility] ([facility]) Bronchospasm Evaluation 01/01/2020 12:00:00 AM EDT [facility] ([facility]) Plethysmography Determination Lung Volumes & Per Airway Resi st 01/01/2020 12:00:00 AM EDT [facility] ([facility], ) DIFFUSING CAPACITY 01/01/2020 12:00:00 AM EDT [facility] ([facility]) Spirometry 12/12/2019 12:00:00 [facility] VENIPUNCT, ROUTINE* 10/30/2019 12:00:00 AM EST eCW1 ([facility]) Office Visit, Est Pt., Level 2 FC 10/09/2019 12:00:00 AM EST eCW1 ([facility]) Results ID Date Data Source [id number] 01/24/2020 10:00:00 AM EDT [facility] ([facility]) Name Value Range Interpretation Code Description Data Shy rce(s) Supporting Document(s) Microscopic observation [Identifier] in Unspecified specimen by Non- gynecological cytology method Laboratory test result [facility] ([facility]) SPECIMEN: FNA subcarinal lymp h node Prepared slides and cytolyt SPECIMEN ADEQUACY: Satisfactory for evaluation CATEGORIZATION: Negative for Malignancy DESCRIPTIONS: Histiocytic aggregate is noted in a background of blood elements, suggestive of granuloma. COMMENTS: See report [id number] 01/25/2020 - [address] (ASCP) 01/24/2020 1428 (Prelim) Signed Fay Parr MD 01/25/2020 0834 ID Date Data Source [id number] 01/24/2020 09:42:00 AM EDT [facility] ([facility]) Name Value Range Interpretation Code Description Data Shy rce(s) Supporting Document(s) Fungal Smear Laboratory test result [facility] ([facility]) Testing performed at reference lab . Rep ort copy to follow on a separate form. 03/08/20 REF LAB#:[id number] PABLO/Calcofluor preparatio No fungus observed. Fungal Culture Other Source Laboratory test result [facility] ([facility]) Testing performed at reference lab . Rep ort copy to follow on a separate form. 03/08/20 REF LAB#:[id number] FUNGUS CULTURE [facility] No Yeast or Mold Isolated after 4 weeks. ID Date Data Source [id number] 01/24/2020 09:42:00 AM EDT [facility] ([facility]) Name Value Range Interpretation Code Description Data Shy rce(s) Supporting Document(s) Color Laboratory test result Above high normal [facility] ([facility]) Source Laboratory test result Normal (applies to non-n umeric results) [facility] ([facility]) RIGHT UPPER LOBE Bal WBC Laboratory test result 0-10 Normal (applies to non-n umeric results) [facility] ([facility]) Appearance Laboratory test result Above high normal [facility] ([facility]) ID Date Data Source [id number] 01/24/2020 09:42:00 AM EDT [facility] ([facility]) Name Value Range Interpretation Code Description Data Shy rce(s) Supporting Document(s) Source Laboratory test result Normal (applies to non-n umeric results) [facility] ([facility]) RIGHT UPPER LOBE Color Laboratory test result Above high normal [facility] ([facility]) Appearance Laboratory test result Above high normal [facility] ([facility]) Bal WBC Laboratory test result 0-10 Normal (applies to non-n umeric results) [facility] ([facility]) ID Date Data Source [id number] 01/24/2020 09:42:00 AM EDT [facility] ([facility]) Name Value Range Interpretation Code Description Data Shy rce(s) Supporting Document(s) Source Laboratory test result Normal (applies to non-n umeric results) [facility] ([facility]) RIGHT UPPER LOBE Color Laboratory test result Above high normal [facility] ([facility]) Bal WBC Laboratory test result 0-10 Normal (applies to non-n umeric results) [facility] ([facility]) Appearance Laboratory test result Above high normal [facility] ([facility]) ID Date Data Source [id number] 01/24/2020 09:42:00 AM EDT [facility] ([facility]) Name Value Range Interpretation Code Description Data Shy rce(s) Supporting Document(s) Color Laboratory test result Above high normal [facility] ([facility]) Source Laboratory test result Normal (applies to non-n umeric results) [facility] ([facility]) RIGHT UPPER LOBE Appearance Laboratory test result Above high normal [facility] ([facility]) Bal WBC Laboratory test result 0-10 Normal (applies to non-n umeric results) [facility] ([facility]) ID Date Data Source [id number] 01/24/2020 09:42:00 AM EDT [facility] ([facility]) Name Value Range Interpretation Code Description Data Shy rce(s) Supporting Document(s) Color Laboratory test result Above high normal [facility] ([facility]) Source Laboratory test result Normal (applies to non-n umeric results) [facility] ([facility]) RIGHT UPPER LOBE Appearance Laboratory test result Above high normal [facility] ([facility]) Bal WBC Laboratory test result 0-10 Normal (applies to non-n umeric results) [facility] ([facility]) ID Date Data Source [id number] 01/24/2020 09:42:00 AM EDT [facility] ([facility]) Name Value Range Interpretation Code Description Data Shy rce(s) Supporting Document(s) Source Laboratory test result Normal (applies to non-n umeric results) [facility] ([facility]) RIGHT UPPER LOBE Color Laboratory test result Above high normal [facility] ([facility]) Bal WBC Laboratory test result 0-10 Normal (applies to non-n umeric results) [facility] ([facility]) Appearance Laboratory test result Above high normal [facility] ([facility]) ID Date Data Source [id number] 01/24/2020 09:42:00 AM EDT [facility] ([facility]) Name Value Range Interpretation Code Description Data Shy rce(s) Supporting Document(s) Source Laboratory test result Normal (applies to non-n umeric results) [facility] ([facility]) RIGHT UPPER LOBE Color Laboratory test result Above high normal [facility] ([facility]) Appearance Laboratory test result Above high normal [facility]) Bal WBC Laboratory test result 0-10 Normal (applies to non-n umeric results) [facility] ([facility]) ID Date Data Source [id number] 01/24/2020 09:42:00 AM EDT [facility] ([facility]) Name Value Range Interpretation Code Description Data Shy rce(s) Supporting Document(s) Color Laboratory test result Above high normal [facility] ([facility]) Source Laboratory test result Normal (applies to non-n umeric results) [facility] ([facility]) RIGHT UPPER LOBE Appearance Laboratory test result Above high normal [facility] ([facility]) Bal WBC Laboratory test result 0-10 Normal (applies to non-n umeric results) [facility] ([facility]) ID Date Data Source [id number] 01/24/2020 09:42:00 AM EDT [facility] ([facility]) Name Value Range Interpretation Code Description Data Shy rce(s) Supporting Document(s) Color Laboratory test result Above high normal [facility] ([facility]) Source Laboratory test result Normal (applies to non-n umeric results) [facility] ([facility]) RIGHT UPPER LOBE Appearance Laboratory test result Above high normal [facility] ([facility]) Bal WBC Laboratory test result 0-10 Normal (applies to non-n umeric results) [facility] ([facility]) ID Date Data Source [id number] 01/24/2020 09:42:00 AM EDT [facility] ([facility]) Name Value Range Interpretation Code Description Data Shy rce(s) Supporting Document(s) Source Laboratory test result Normal (applies to non-n umeric results) [facility] ([facility]) RIGHT UPPER LOBE Color Laboratory test result Above high normal [facility] ([facility]) Appearance Laboratory test result Above high normal [facility] ([facility]) Bal WBC Laboratory test result 0-10 Normal (applies to non-n umeric results) [facility] ([facility]) ID Date Data Source [id number] 01/24/2020 09:42:00 AM EDT [facility] ([facility]) Name Value Range Interpretation Code Description Data Shy rce(s) Supporting Document(s) Source Laboratory test result Normal (applies to non-n umeric results) [facility] ([facility]) RIGHT UPPER LOBE Color Laboratory test result Above high normal [facility] ([facility]) Bal WBC Laboratory test result 0-10 Normal (applies to non-n umeric results) [facility] ([facility]) Appearance Laboratory test result Above high normal [facility] ([facility]) ID Date Data Source [id number] 01/24/2020 09:42:00 AM EDT [facility] ([facility]) Name Value Range Interpretation Code Description Data Shy rce(s) Supporting Document(s) Source Laboratory test result Normal (applies to non-n umeric results) [facility] ([facility]) RIGHT UPPER LOBE Appearance Laboratory test result Above high normal [facility] ([facility]) Color Laboratory test result Above high normal [facility] ([facility]) Bal WBC Laboratory test result 0-10 Normal (applies to non-n umeric results) [facility] ([facility]) ID Date Data Source [id number] 01/24/2020 09:42:00 AM EDT [facility] ([facility]) Name Value Range Interpretation Code Description Data Shy rce(s) Supporting Document(s) Appearance Laboratory test result Above high normal [facility] ([facility]) Color Laboratory test result Above high normal [facility] ([facility]) Source Laboratory test result Normal (applies to non-n umeric results) [facility] ([facility]) RIGHT UPPER LOBE Bal WBC Laboratory test result 0-10 Normal (applies to non-n umeric results) [facility] ([facility]) ID Date Data Source [id number] 01/24/2020 09:42:00 AM EDT [facility] ([facility]) Name Value Range Interpretation Code Description Data Shy rce(s) Supporting Document(s) Afb Smear Laboratory test result [facility] ([facility]) Due to limited sensitivity, smear result s should be used as an adjunct in evaluating patient tuberculosis status. Cultural examination is highly recommended for clinical diagnosis. AFB smear Kinyoun NEGATIVE (NO AFB Seen ) Afb Culture Laboratory test result [facility] ([facility]) Testing performed at reference lab . Rep ort copy to follow on a separate form. 03/08/20 REF LAB#:[id number] FULL REPORT IN LAB NOTES ([facility] and [facility]). No Acid-Fast Bacilli Isolated after 6 Weeks. ID Date Data Source [id number] 01/24/2020 09:42:00 AM EDT [facility] ([facility]) Name Value Range Interpretation Code Description Data Shy rce(s) Supporting Document(s) Source Laboratory test result Normal (applies to non-n umeric results) [facility] ([facility]) RIGHT UPPER LOBE Color Laboratory test result Above high normal [facility] ([facility]) Bal WBC Laboratory test result 0-10 Normal (applies to non-n umeric results) [facility] ([facility]) Appearance Laboratory test result Above high normal [facility] ([facility]) ID Date Data Source [id number] [facility] Name Value Range Interpretation Code Description Data Shy rce(s) Supporting Document(s) Source Laboratory test result Normal (applies to non-n umeric results) [facility] ([facility]) RIGHT UPPER LOBE Color Laboratory test result Above high normal [facility] ([facility]) Appearance Laboratory test result Above high normal [facility] ([facility]) Bal WBC Laboratory test result 0-10 Normal (applies to non-n umeric results) [facility] ([facility]) ID Date Data Source [id number] 01/24/2020 09:42:00 AM EDT [facility] ([facility]) Name Value Range Interpretation Code Description Data Shy rce(s) Supporting Document(s) Source Laboratory test result Normal (applies to non-n umeric results) [facility] ([facility]) RIGHT UPPER LOBE Color Laboratory test result Above high normal [facility] ([facility]) Bal WBC Laboratory test result 0-10 Normal (applies to non-n umeric results) [facility] ([facility]) Appearance Laboratory test result Above high normal [facility] ([facility]) ID Date Data Source [id number] 01/24/2020 09:42:00 AM EDT [facility] ([facility]) Name Value Range Interpretation Code Description Data Shy rce(s) Supporting Document(s) Source Laboratory test result Normal (applies to non-n umeric results) [facility] ([facility]) RIGHT UPPER LOBE Bal WBC Laboratory test result 0-10 Normal (applies to non-n umeric results) [facility] ([facility]) Appearance Laboratory test result Above high normal [facility] ([facility]) Color Laboratory test result Above high normal [facility] ([facility]) ID Date Data Source [id number] 01/24/2020 09:42:00 AM EDT [facility] ([facility]) Name Value Range Interpretation Code Description Data Shy rce(s) Supporting Document(s) Source Laboratory test result Normal (applies to non-n umeric results) [facility] ([facility]) RIGHT UPPER LOBE Color Laboratory test result Above high normal [facility] ([facility]) Appearance Laboratory test result Above high normal [facility] ([facility]) Bal WBC Laboratory test result 0-10 Normal (applies to non-n umeric results) [facility] ([facility]) ID Date Data Source [id number] 01/24/2020 09:42:00 AM EDT [facility] ([facility]) Name Value Range Interpretation Code Description Data Shy rce(s) Supporting Document(s) Color Laboratory test result Above high normal [facility] ([facility]) Source Laboratory test result Normal (applies to non-n umeric results) [facility] ([facility]) RIGHT UPPER LOBE Bal WBC Laboratory test result 0-10 Normal (applies to non-n umeric results) [facility] ([facility]) Appearance Laboratory test result Above high normal [facility] ([facility]) ID Date Data Source [id number] 01/24/2020 09:42:00 AM EDT [facility] ([facility]) Name Value Range Interpretation Code Description Data Shy rce(s) Supporting Document(s) Source Laboratory test result Normal (applies to non-n umeric results) [facility] ([facility]) RIGHT UPPER LOBE Color Laboratory test result Above high normal [facility] ([facility]) Appearance Laboratory test result Above high normal [facility] ([facility]) Bal WBC Laboratory test result 0-10 Normal (applies to non-n umeric results) [facility] ([facility]) ID Date Data Source [id number] 01/24/2020 09:42:00 AM EDT [facility] ([facility]) Name Value Range Interpretation Code Description Data Shy rce(s) Supporting Document(s) 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 Cultural examination is highly recommended for clinical diagnosis. AFB smear Kinyoun NEGATIVE (NO AFB Seen ) ID Date Data Source [id number] 01/24/2020 09:42:00 AM EDT [facility] ([facility]) Name Value Range Interpretation Code Description Data Shy rce(s) Supporting Document(s) Gram Stain Laboratory test result Normal (applies to non-n umeric results) [facility] ([facility]) FEW WBCS NO ORGANISMS SEEN Bal Culture Laboratory test result Normal (applies to non- numeric results) [facility] ([facility]) FULL REPORT IN LAB NOTES ([facility] DECREASED NORMAL JESSICA PRESENT ID Date Data Source [id number] 01/24/2020 09:42:00 AM EDT [facility] ([facility]) Name Value Range Interpretation Code Description Data Shy rce(s) Supporting Document(s) Source Laboratory test result Normal (applies to non-n umeric results) [facility] ([facility]) RIGHT UPPER LOBE Color Laboratory test result Above high normal [facility] ([facility]) Appearance Laboratory test result Above high normal [facility] ([facility]) Bal WBC Laboratory test result 0-10 Normal (applies to non-n umeric results) [facility] ([facility]) ID Date Data Source [id number] 01/24/2020 09:42:00 AM EDT [facility] ([facility]) Name Value Range Interpretation Code Description Data Shy rce(s) Supporting Document(s) Neutrophils, Bal 96 % Normal (applies to non-numeric results) [facility] ([facility]) Eosinophils, Bal 4 % Normal (applies to non-numeric results) [facility] ([facility]) ID Date Data Source [id number] 01/24/2020 09:42:00 AM EDT [facility] ([facility]) Name Value Range Interpretation Code Description Data Shy rce(s) Supporting Document(s) Color Laboratory test result Above high normal [facility] ([facility]) Source Laboratory test result Normal (applies to non-n umeric results) [facility] ([facility]) RIGHT UPPER LOBE Bal WBC Laboratory test result 0-10 Normal (applies to non-n umeric results) [facility] ([facility]) Appearance Laboratory test result Above high normal [facility] ([facility]) ID Date Data Source [id number] 01/24/2020 09:42:00 AM EDT [facility] ([facility]) Name Value Range Interpretation Code Description Data Shy rce(s) Supporting Document(s) Source Laboratory test result Normal (applies to non-n umeric results) [facility] ([facility]) RIGHT UPPER LOBE Appearance Laboratory test result Above high normal [facility] ([facility]) Color Laboratory test result Above high normal [facility] ([facility]) Bal WBC Laboratory test result 0-10 Normal (applies to non-n umeric results) [facility] ([facility]) ID Date Data Source [id number] 01/24/2020 09:42:00 AM EDT [facility] ([facility]) Name Value Range Interpretation Code Description Data Shy rce(s) Supporting Document(s) Source Laboratory test result Normal (applies to non-n umeric results) [facility] ([facility]) RIGHT UPPER LOBE Color Laboratory test result Above high normal [facility] ([facility]) Bal WBC Laboratory test result 0-10 Normal (applies to non-n umeric results) [facility] ([facility]) Appearance Laboratory test result Above high normal [facility] ([facility]) ID Date Data Source [id number] 01/24/2020 09:42:00 AM EDT [facility] ([facility]) Name Value Range Interpretation Code Description Data Shy rce(s) Supporting Document(s) Source Laboratory test result Normal (applies to non-n umeric results) [facility] ([facility]) RIGHT UPPER LOBE Color Laboratory test result Above high normal [facility] ([facility]) Appearance Laboratory test result Above high normal [facility] ([facility]) Bal WBC Laboratory test result 0-10 Normal (applies to non-n umeric results) [facility] ([facility]) ID Date Data Source [id number] 01/24/2020 09:42:00 AM EDT [facility] ([facility]) Name Value Range Interpretation Code Description Data Shy rce(s) Supporting Document(s) Source Laboratory test result Normal (applies to non-n umeric results) [facility] ([facility]) RIGHT UPPER LOBE Color Laboratory test result Above high normal [facility] ([facility]) Appearance Laboratory test result Above high normal [facility] ([facility]) Bal WBC Laboratory test result 0-10 Normal (applies to non-n umeric results) [facility] ([facility]) ID Date Data Source [id number] 01/24/2020 09:42:00 AM EDT [facility] ([facility]) Name Value Range Interpretation Code Description Data Shy rce(s) Supporting Document(s) Color Laboratory test result Above high normal [facility] ([facility]) Source Laboratory test result Normal (applies to non-n umeric results) [facility] ([facility]) RIGHT UPPER LOBE Appearance Laboratory test result Above high normal [facility] ([facility]) Bal WBC Laboratory test result 0-10 Normal (applies to non-n umeric results) [facility] ([facility]) ID Date Data Source [id number] 01/24/2020 09:42:00 AM EDT [facility] ([facility]) Name Value Range Interpretation Code Description Data Shy rce(s) Supporting Document(s) Source Laboratory test result Normal (applies to non-n umeric results) [facility] ([facility]) RIGHT UPPER LOBE Color Laboratory test result Above high normal [facility] ([facility]) Appearance Laboratory test result Above high normal [facility]) Bal WBC Laboratory test result 0-10 Normal (applies to non-n umeric results) [facility] ([facility]) ID Date Data Source [id number] 01/24/2020 09:42:00 AM EDT [facility] ([facility]) Name Value Range Interpretation Code Description Data Shy rce(s) Supporting Document(s) Source Laboratory test result Normal (applies to non-n umeric results) [facility] ([facility]) RIGHT UPPER LOBE Appearance Laboratory test result Above high normal [facility] ([facility]) Color Laboratory test result Above high normal [facility] ([facility]) Bal WBC Laboratory test result 0-10 Normal (applies to non-n umeric results) [facility] ([facility]) ID Date Data Source [id number] 01/24/2020 09:42:00 AM EDT [facility] ([facility]) Name Value Range Interpretation Code Description Data Shy rce(s) Supporting Document(s) Color Laboratory test result Above high normal [facility] ([facility]) Appearance Laboratory test result Above high normal [facility] ([facility]) Source Laboratory test result Normal (applies to non-n umeric results) [facility] ([facility]) RIGHT UPPER LOBE Bal WBC Laboratory test result 0-10 Normal (applies to non-n umeric results) [facility] ([facility]) ID Date Data Source [id number] 01/24/2020 09:42:00 AM EDT [facility] ([facility]) Name Value Range Interpretation Code Description Data Shy rce(s) Supporting Document(s) Color Laboratory test result Above high normal [facility] ([facility]) Source Laboratory test result Normal (applies to non-n umeric results) [facility] ([facility]) RIGHT UPPER LOBE Appearance Laboratory test result Above high normal [facility] ([facility]) Bal WBC Laboratory test result 0-10 Normal (applies to non-n umeric results) [facility] ([facility]) ID Date Data Source [id number] 01/24/2020 09:42:00 AM EDT [facility] ([facility]) Name Value Range Interpretation Code Description Data Shy rce(s) Supporting Document(s) Source Laboratory test result Normal (applies to non-n umeric results) [facility] ([facility]) RIGHT UPPER LOBE Color Laboratory test result Above high normal [facility] ([facility]) Appearance Laboratory test result Above high normal [facility] ([facility]) Bal WBC Laboratory test result 0-10 Normal (applies to non-n umeric results) [facility] ([facility]) ID Date Data Source [id number] 01/24/2020 09:42:00 AM EDT [facility]) Name Value Range Interpretation Code Description Data Shy rce(s) Supporting Document(s) Source Laboratory test result Normal (applies to non-n umeric results) [facility] ([facility]) RIGHT UPPER LOBE Color Laboratory test result Above high normal [facility] ([facility]) Bal WBC Laboratory test result 0-10 Normal (applies to non-n umeric results) [facility] ([facility]) Appearance Laboratory test result Above high normal [facility] ([facility]) ID Date Data Source [id number] 01/24/2020 09:42:00 AM EDT [facility] ([facility]) Name Value Range Interpretation Code Description Data Shy rce(s) Supporting Document(s) Source Laboratory test result Normal (applies to non-n umeric results) [facility] ([facility]) RIGHT UPPER LOBE Appearance Laboratory test result Above high normal [facility] ([facility]) Color Laboratory test result Above high normal [facility] ([facility]) Bal WBC Laboratory test result 0-10 Normal (applies to non-n umeric results) [facility] ([facility]) ID Date Data Source [id number] 01/24/2020 09:42:00 AM EDT [facility] ([facility]) Name Value Range Interpretation Code Description Data Shy rce(s) Supporting Document(s) Source Laboratory test result Normal (applies to non-n umeric results) [facility] ([facility]) RIGHT UPPER LOBE Color Laboratory test result Above high normal [facility]) Appearance Laboratory test result Above high normal [facility] ([facility]) Bal WBC Laboratory test result 0-10 Normal (applies to non-n umeric results) [facility] ([facility]) ID Date Data Source [id number] 01/24/2020 09:42:00 AM EDT [facility] ([facility]) Name Value Range Interpretation Code Description Data Shy rce(s) Supporting Document(s) Source Laboratory test result Normal (applies to non-n umeric results) [facility] ([facility]) RIGHT UPPER LOBE Appearance Laboratory test result Above high normal [facility] ([facility]) Color Laboratory test result Above high normal [facility] ([facility]) Bal WBC Laboratory test result 0-10 Normal (applies to non-n umeric results) [facility] ([facility]) ID Date Data Source [id number] 01/24/2020 09:42:00 AM EDT [facility] ([facility]) Name Value Range Interpretation Code Description Data Shy rce(s) Supporting Document(s) Color Laboratory test result Above high normal [facility] ([facility]) Source Laboratory test result Normal (applies to non-n umeric results) [facility] ([facility]) RIGHT UPPER LOBE Appearance Laboratory test result Above high normal [facility] ([facility]) Bal WBC Laboratory test result 0-10 Normal (applies to non-n umeric results) [facility] ([facility]) ID Date Data Source [id number] 01/24/2020 09:42:00 AM EDT [facility] ([facility]) Name Value Range Interpretation Code Description Data Shy rce(s) Supporting Document(s) Source Laboratory test result Normal (applies to non-n umeric results) [facility] ([facility]) RIGHT UPPER LOBE Color Laboratory test result Above high normal [facility] ([facility]) Bal WBC Laboratory test result 0-10 Normal (applies to non-n umeric results) [facility] ([facility]) Appearance Laboratory test result Above high normal [facility]) ID Date Data Source [id number] 01/24/2020 09:42:00 AM EDT [facility] ([facility]) Name Value Range Interpretation Code Description Data Shy rce(s) Supporting Document(s) Source Laboratory test result Normal (applies to non-n umeric results) [facility] ([facility]) RIGHT UPPER LOBE Appearance Laboratory test result Above high normal [facility] ([facility]) Color Laboratory test result Above high normal [facility] ([facility]) Bal WBC Laboratory test result 0-10 Normal (applies to non-n umeric results) [facility] ([facility]) ID Date Data Source [id number] 01/24/2020 09:42:00 AM EDT [facility] ([facility]) Name Value Range Interpretation Code Description Data Shy rce(s) Supporting Document(s) Source Laboratory test result Normal (applies to non-n umeric results) [facility] ([facility]) RIGHT UPPER LOBE Color Laboratory test result Above high normal [facility] ([facility]) Bal WBC Laboratory test result 0-10 Normal (applies to non-n umeric results) [facility] ([facility]) Appearance Laboratory test result Above high normal [facility] ([facility]) ID Date Data Source [id number] 01/24/2020 09:42:00 AM EDT [facility] ([facility]) Name Value Range Interpretation Code Description Data Shy rce(s) Supporting Document(s) Source Laboratory test result Normal (applies to non-n umeric results) [facility] ([facility]) RIGHT UPPER LOBE Color Laboratory test result Above high normal [facility] ([facility]) Appearance Laboratory test result Above high normal [facility] ([facility]) Bal WBC Laboratory test result 0-10 Normal (applies to non-n umeric results) [facility] ([facility]) ID Date Data Source [id number] 01/24/2020 09:42:00 AM EDT [facility] ([facility]) Name Value Range Interpretation Code Description Data Shy rce(s) Supporting Document(s) Source Laboratory test result Normal (applies to non-n umeric results) [facility] ([facility]) RIGHT UPPER LOBE Color Laboratory test result Above high normal [facility] ([facility]) Bal WBC Laboratory test result 0-10 Normal (applies to non-n umeric results) [facility] ([facility]) Appearance Laboratory test result Above high normal [facility] ([facility]) ID Date Data Source [id number] 01/24/2020 09:42:00 AM EDT [facility] ([facility]) Name Value Range Interpretation Code Description Data Shy rce(s) Supporting Document(s) Source Laboratory test result Normal (applies to non-n umeric results) [facility] ([facility]) RIGHT UPPER LOBE Color Laboratory test result Above high normal [facility] ([facility]) Appearance Laboratory test result Above high normal [facility] ([facility]) Bal WBC Laboratory test result 0-10 Normal (applies to non-n umeric results) [facility] ([facility]) ID Date Data Source [id number] 01/24/2020 09:42:00 AM EDT [facility] ([facility]) Name Value Range Interpretation Code Description Data Shy rce(s) Supporting Document(s) Source Laboratory test result Normal (applies to non-n umeric results) [facility] ([facility]) RIGHT UPPER LOBE Color Laboratory test result Above high normal [facility] ([facility]) Appearance Laboratory test result Above high normal [facility] ([facility]) Bal WBC Laboratory test result 0-10 Normal (applies to non-n umeric results) [facility] ([facility]) ID Date Data Source [id number] 01/24/2020 09:25:00 AM EDT [facility] ([facility]) Name Value Range Interpretation Code Description Data Shy rce(s) Supporting Document(s) Surgical pathology study Laboratory test result [facility] ([facility]) Addendum 1 Entered: 01/29/2020-1413 No mycobacteria or [...] MD 01/25/2020 1243 ID Date Data Source [id number] 01/24/2020 08:27:00 AM EDT [facility] ([facility]) Name Value Range Interpretation Code Description Data Shy rce(s) Supporting Document(s) Glucose [Mass/volume] in Capillary blood by Glucometer 205 mg/dL 83-110 Above high normal [facility] ([facility]) ID Date Data Source [id number] 01/15/2020 01:11:00 PM EDT [facility] ([facility]) Name Value Range Interpretation Code Description Data Shy rce(s) Supporting Document(s) aPTT in Platelet poor plasma by Coagulation assay 29.2 s 25.0-38.4 Normal (applies to non-numeric results) [facility]) ID Date Data Source [id number] 01/15/2020 01:11:00 PM EDT [facility] ([facility]) Name Value Range Interpretation Code Description Data Shy rce(s) Supporting Document(s) Inr 1.07 Normal (applies to non-numeric resul ts) [facility] ([facility]) THERAPUTIC HUMAN INR VALUES INDICATIONS NORMAL RANGES PROPHYLAXIS/TREATMENT OF: VENOUS THROMBOSIS 2.0-3.0 PULMONARY EMBOLISM 2.0-3.0 PREVENTION OF SYSTEMIC EMBOLISM FROM: TISSUE HEART VALVES 2.0-3.0 ACUTE MYOCARDIAL INFARCTION 2.0-3.0 VALVULAR HEART DISEASE 2.0-3.0 ATRIAL FIBRILLATION 2.0-3.0 MECHANICAL VALVES(HIGH RISK) 2.5-3.5 RECURRENT MYOCARDIAL INFARCTION 2.5-3.5 Prothrombin Time 13.6 s 11.8-14.0 Normal (applies to non-numeric results) [facility] ([facility]) ID Date Data Source [id number] 01/15/2020 01:11:00 PM EDT [facility]) Name Value Range Interpretation Code Description Data Shy rce(s) Supporting Document(s) Platelets [#/volume] in Blood by Automated count 288 10 150-450 Normal (applies to non-numeric results) [facility] ([facility]) ID Date Data Source [id number] 01/12/2020 11:42:00 AM EDT [facility] ([facility]) Name Value Range Interpretation Code Description Data Shy rce(s) Supporting Document(s) Hemoglobin 16.0 g/dL 12.0-15.5 Above high normal [facility] ([facility]) White Blood Count 10.8 10 4.0-10.0 Above high normal [facility] ([facility]) Red Blood Count 4.64 10 4.00-5.40 Normal (applies to non-numeric results) [facility] ([facility]) Hematocrit 44.6 % 36.0-47.0 Normal (applies to non-numeric resul ts) [facility] ([facility]) Mean Corpuscular Volume 96.1 fl 80.0-96.0 Above high normal [facility] ([facility]) Mean Corpuscular Hemoglobin 34.5 pg 27.0-33.0 Above high normal [facility] ([facility]) Mean Corpuscular HGB Conc 35.9 g/dL 32.0-36.5 Normal (applies to non-numeric results) [facility] ([facility]) Red Cell Distribution Width 13.2 % 11.5-14.5 Norm al (applies to non-numeric results) [facility] ([facility]) Platelet Count, Automated 349 10 150-450 Normal (applies to non-numeric results) [facility] ([facility]) Neutrophils % 69.4 % 36.0-66.0 Above high normal [facility] ([facility]) Eos % 4.9 % 0.0-3.0 Above high normal [facility] ([facility]) Adams % 7.2 % 0.0-5.0 Above high normal [facility] ([facility]) Lymph % 17.3 % 24.0-44.0 Below low normal [facility] ( [facility]) Immature Granulocyte % 0.4 % 0-3.0 Normal (applies to non-n umeric results) [facility] ([facility], ) Baso % 0.8 % 0.0-1.0 Normal (applies to non-numeric resul ts) [facility]) Nucleated Red Blood Cell % 0.0 % 0-0 Normal (applies to n on-numeric results) [facility] ([facility]) Neutrophils # 7.5 10 1.5-8.5 Normal (applies to non-numeric re sults) [facility]) Lymph # 1.9 10 1.5-5.0 Normal (applies to non-numeric resul ts) [facility]) Adams # 0.8 10 0.0-0.8 Normal (applies to non-numeric resul ts) [facility]) Baso # 0.1 10 0.0-0.2 Normal (applies to non-numeric resul ts) [facility]) Eos # 0.5 10 0.0-0.5 Normal (applies to non-numeric resul ts) [facility] ([facility]) ID Date Data Source [id number] 01/12/2020 11:42:00 AM EDT [facility] ([facility]) Name Value Range Interpretation Code Description Data Shy rce(s) Supporting Document(s) Alt/SGPT 33 U/L 12-78 Normal (applies to non-numeric resul ts) [facility]) Ast/Sgot 24 U/L 7-37 Normal (applies to non-numeric resul ts) [facility]) Bilirubin,Total 0.8 mg/dL 0.2-1.0 Normal (applies to non-numeric results) [facility]) Bilirubin,Direct 0.2 mg/dL 0.0-0.2 Normal (applies to non-numeric results) [facility]) Alkaline Phosphatase 69 U/L 45-117 Normal (applies to non-num dana results) [facility]) Albumin 4.0 GM/DL 3.2-5.2 Normal (applies to non-numeric resul ts) [facility] ([facility]) Total Protein 7.3 GM/DL 6.4-8.2 Normal (applies to non-numeric re sults) [facility]) Albumin/Globulin Ratio 1.21 1.00-1.93 Normal (applies to non-numeric results) [facility] ([facility]) ID Date Data Source [id number] 01/12/2020 11:42:00 AM EDT [facility] ([facility]) Name Value Range Interpretation Code Description Data Shy rce(s) Supporting Document(s) Glomerular Filtration Rate 28.5 Below low normal [facility] ([facility]) <content>Units are mL/min/1.73 m2</content>
<content></content>
<content>Chronic Kidney Disease Staging per NKF:</content>
<content></content>
<content>Stage I & II GFR >=60 Normal to Mildly Decreased</content>
<content>Stage III GFR 30- 59 Moderately Decreased</content>
<content>Stage IV GFR 15-29 Severely Decreased</content>
<content>Stage V GFR <15 Very Little GFR Left</content>
<content>ESRD GFR <15 on [employer]</content>
<content></content> Creatinine For GFR 1.85 mg/dL 0.55-1.30 Above high normal [facility] ([facility]) ID Date Data Source [id number] 01/12/2020 11:42:00 AM EDT [facility] ([facility]) Name Value Range Interpretation Code Description Data Shy rce(s) Supporting Document(s) Calcium [Mass/volume] in Serum or Plasma 9.9 mg/dL 8.8-10. 2 Normal (applies to non-numeric results) [facility] ([facility]) ID Date Data Source [id number] [facility] Name Value Range Interpretation Code Description Data Shy rce(s) Supporting Document(s) Aspergillus Fumigatus Arlette Laboratory test result Normal (applies to non- numeric results) [facility] ([facility], ) Aspergillus Flavus Arlette Laboratory test result No rmal (applies to non-numeric results) [facility] ([facility]) Aspergillus Niger Arlette Laboratory test result Nor mal (applies to non-numeric results) [facility] ([facility]) Performed at: [address] [id number] Buyer Broker: Audrey Mccarty MD, Phone: [phone] ID Date Data Source [id number] 01/12/2020 11:42:00 AM EDT [facility] ([facility]) Name Value Range Interpretation Code Description Data Shy rce(s) Supporting Document(s) Aureobasidium [place] Laboratory test result N ormal (applies to non-numeric results) [facility]) Aspergillus Fumigatus AB Laboratory test result Normal (applies to non-numeric results) [facility] ([facility]) Heath Serum AB Laboratory test result Normal (a pplies to non-numeric results) [facility] ([facility]) Performed at: [address] [place] [id number] Buyer Broker: Len Lorenz MD, Phone: [phone] Performed at: [address] [id number] Buyer Broker: Regina Cartwright MD, Phone: [phone] Performed at: [address] [id number] Buyer Broker: Audrey Mccarty MD, Phone: [phone] Micropolyspora Faeni AB Laboratory test result N ormal (applies to non-numeric results) [facility] ([facility]) Thermoactinomyces Sacchari Laboratory test result Normal (applies to non- numeric results) [facility]) Thermoactinomyces Vulgaris Laboratory test result Normal (applies to non- numeric results) [facility] ([facility]) ID Date Data Source [id number] 01/12/2020 11:42:00 AM EDT [facility] ([facility]) Name Value Range Interpretation Code Description Data Shy rce(s) Supporting Document(s) Histoplasmosis Antibody Laboratory test result N ormal (applies to non-numeric results) [facility] ([facility]) Cryptococcus sp Ag [Presence] in Serum by Immunoassay Laboratory test result Normal (applies to non-numeric results) [facility] ([facility]) Blastomyces Antibody Level Laboratory test result Normal (applies to non- numeric results) [facility] ([facility]) Coccidioides sp Ab [Units/volume] in Serum 0.3 IV Normal (applies to non- numeric results) [facility] ([facility]) INTERPRETIVE INFORMATION: Coccidioides A ntibody, Ig.9 IV [...] U/L 14-82 Normal (applies to non-numeric results) [facility] ([facility]) ID Date Data Source [id number] 01/05/2020 10:31:00 AM EDT [facility] ([facility]) Name Value Range Interpretation Code Description Data Shy rce(s) Supporting Document(s) Gram Stain Laboratory test result Normal (applies to non-n umeric results) [facility] ([facility]) QUALITY: POOR MANY EPITHELIAL CELLS MANY WBCS MANY GRAM POSITIVE RODS MANY GRAM POSITIVE COCCI IN PAIRS, CHAINS AND CLUSTERS Sputum Culture Laboratory test result [facility] ([facility]) Sputum culture not performed due to orop haryngeal contamination. Further processing of such specimens would not yield useful information about the possible pathogens from the lower respiratory tract. Test not performed ID Date Data Source LIPID PANEL (CARDIAC RISK) 10/30/2019 12:00:00 AM EST eCW1 ( [facility]) Name Value Range Interpretation Code Description Data Shy rce(s) Supporting Document(s) Triglyceride [Mass/volume] in Serum or Plasma by calculation 145 <150 TRIGLYCERIDES LEVEL eCW1 ([facility]) Cholesterol [Moles/volume] in Serum or Plasma 131 <200 CHOLESTEROL LEVEL eCW1 ([facility]) Cholesterol in HDL [Moles/volume] in Serum or Plasma 45 >40 HDL CHOLESTEROL eCW1 ([facility]) Cholesterol in LDL [Mass/volume] in Serum or Plasma by calculation 57 <100 LDL CHOLESTEROL eCW1 ([facility]) 2.911 <5 CHOLESTEROL RISK RATIO eCW1 ([facility]) 86 NON-HDL-C eCW1 ([facility]) ID Date Data Source [id number] 10/30/2019 12:00:00 AM EST eCW1 ([facility]) Name Value Range Interpretation Code Description Data Shy rce(s) Supporting Document(s) Hemoglobin A1c/Hemoglobin.total in Blood 7.4 HEMOGLOBIN A1c eCW1 ([facility]) ID Date Data Source FREE T4 & TSH PANEL 10/30/2019 12:00:00 AM EST eCW1 ([facility]) Name Value Range Interpretation Code Description Data Shy rce(s) Supporting Document(s) 1.36 0.76-1.46 FREE T4 eCW1 ([facility]) 2.980 0.358-3.740 THYROID STIMULATING HORM ONE eCW1 ([facility]) ID Date Data Source Comprehensive Metabolic Profile (CMP) 10/30/2019 12:00:00 AM EST eCW1 ([facility]) Name Value Range Interpretation Code Description Data Shy rce(s) Supporting Document(s) 193 70-100 GLUCOSE, FASTING eCW1 ([facility]) 33.7 >39 GLOMERULAR FILTRATION RATE eCW 1 ([facility]) 1.60 0.55-1.30 CREATININE FOR GFR eCW1 ([facility]) 34 7-18 BLOOD UREA NITROGEN eCW1 ([facility]) 3.9 3.5-5.1 POTASSIUM SERUM eCW1 ([facility]) 139 136-145 SODIUM LEVEL eCW1 ([facility]) 103 98-107 CHLORIDE LEVEL eCW1 ([facility]) 28 21-32 CARBON DIOXIDE LEVEL eCW1 ([facility]) 55 45-117 ALKALINE PHOSPHATASE eCW1 ([facility]) 38 12-78 ALT/SGPT eCW1 ([facility]) 31 7-37 AST/SGOT eCW1 ([facility]) 9.6 8.8-10.2 CALCIUM LEVEL eCW1 ([facility]) 6.8 6.4-8.2 TOTAL PROTEIN eCW1 ([facility]) 1.34 1.00-1.93 ALBUMIN/GLOBULIN RATIO eCW1 ([facility]) 3.9 3.2-5.2 ALBUMIN eCW1 ([facility]) 1.1 0.2-1.0 BILIRUBIN,TOTAL eCW1 ([facility]) Procedure Social History Code Duration Value Status Description Data Source(s ) Smoking 07/25/2020 12:00:00 AM EST Never Smoker completed Never S moker eCW1 ([facility]) Smoking 07/25/2020 12:00:00 AM EST Never Smoker completed Never S moker eCW1 ([facility]) Smoking 07/25/2020 12:00:00 AM EST Never Smoker completed Never S moker eCW1 ([facility]) Smoking 07/25/2020 12:00:00 AM EST Never Smoker completed Never S moker eCW1 ([facility]) Smoking 07/25/2020 12:00:00 AM EST Never Smoker completed Never S moker eCW1 ([facility]) Smoking 05/08/2020 12:00:00 AM EDT Patient has never smoked co mpleted Patient has never smoked [facility] ([facility]) Smoking 02/08/2020 12:00:00 AM EDT Never Smoker completed Never S moker eCW1 ([facility]) Smoking 02/08/2020 12:00:00 AM EDT Never Smoker completed Never S moker eCW1 ([facility]) 12/12/2019 12:00:00 AM EDT Never Smoked Cigarettes com pleted Never Smoked Cigarettes [facility] ([facility], ) Vital Signs ID Date Data Source UNK Name Value Range Interpretation Code Description Data Source(s) Diastolic blood pressure 81 mm[Hg] 81 mm[Hg] eCW1 ([facility]) Systolic blood pressure 131 mm[Hg] 131 mm[Hg] e CW1 ([facility]) Body temperature 98.3 [degF] 98.3 [degF] eCW1 ( [facility]) Respiratory rate 18 /min 18 /min eCW1 ([facility]) Heart rate 76 /min 76 /min [facility]CW1 [facility] [facility]) Body mass index (BMI) [Ratio] 42.43 kg/m2 42.43 kg/m2 W1 ([facility]) Body height [in_i] eCW1 ([facility]) Body weight [lb_av] eCW1 ([facility]) Diastolic blood pressure 81 mm[Hg] 81 mm[Hg] eCW1 ([facility]) Systolic blood pressure 131 mm[Hg] 131 mm[Hg] e CW1 ([facility]) Body temperature 98.3 [degF] 98.3 [degF] eCW1 ( [facility]) Respiratory rate 18 /min 18 /min eCW1 ([facility]) Heart rate 76 /min 76 /min eCW1 ([facility]) Body mass index (BMI) [Ratio] 42.43 kg/m2 42.43 kg/m2 eCW1 ([facility]) Body height [in_i] eCW1 ([facility]) Body weight [lb_av] eCW1 ([facility]) Body weight 102.060 kg 102.060 kg MEDENT ([facility], ) [place] body weight 105 [lb_av] 105 [lb_av] MEDEN T ([facility], ) Body mass index (BMI) [Ratio] 41.8 kg/m2 41.8 k g/m2 [facility] ([facility]) Body weight 225.00 [lb_av] 225.00 [lb_av] MEDEN T ([facility]) Body height 61.5 [in_i] 61.5 [in_i] [facility] ([facility]) 5'1.50" Body temperature 98.1 [degF] 98.1 [degF] [facility] ([facility]) Oxygen saturation in Arterial blood by Pulse oximetry 98 % 98 % [facility] ([facility]) Heart rate 106 /min 106 /min [facility] ([facility]) Diastolic blood pressure 78 mm[Hg] 78 mm[Hg] [facility] ([facility]) Systolic blood pressure 132 mm[Hg] 132 mm[Hg] [facility] Body weight 101.153 kg 101.153 kg [facility] ([facility]) [place] body weight 105 [lb_av] 105 [lb_av] MEDEN T ([facility]) Body mass index (BMI) [Ratio] 41.4 kg/m2 41.4 k g/m2 [facility] ([facility]) Body weight 223.00 [lb_av] 223.00 [lb_av] [facility] Body height 61.5 [in_i] 61.5 [in_i] [facility] ([facility]) 5'1.50" Diastolic blood pressure 77 mm[Hg] 77 mm[Hg] eCW1 ([facility]) Systolic blood pressure 132 mm[Hg] 132 mm[Hg] e CW1 ([facility]) Body temperature 98.7 [degF] 98.7 [degF] eCW1 ( [facility]) Respiratory rate 18 /min 18 /min eCW1 ([facility]) Heart rate 82 /min 82 /min eCW1 ([facility]) Body mass index (BMI) [Ratio] 40.78 kg/m2 40.78 kg/m2 eCW1 ([facility]) Body height [in_us] eCW1 ([facility]) Body weight Measured [lb_av] eCW1 ([facility]) Body weight 101.606 kg 101.606 kg [facility] ([facility]) Body mass index (BMI) [Ratio] 41.6 kg/m2 41.6 k g/m2 [facility] ([facility]) Body weight 224.00 [lb_av] 224.00 [lb_av] MEDEN T ([facility]) Body height 61.5 [in_i] 61.5 [in_i] [facility] ([facility]) 5'1.50" Body temperature 98.3 [degF] 98.3 [degF] [facility] ([facility]) Oxygen saturation in Arterial blood by Pulse oximetry 98 % 98 % [facility] ([facility]) Heart rate 83 /min 83 /min [facility] ([facility]) Diastolic blood pressure 80 mm[Hg] 80 mm[Hg] [facility] ([facility]) Systolic blood pressure 150 mm[Hg] 150 mm[Hg] [facility] Body weight 99.792 kg 99.792 kg [facility] ([facility]) Body mass index (BMI) [Ratio] 40.9 kg/m2 40.9 k g/m2 [facility] ([facility]) Body weight 220.00 [lb_av] 220.00 [lb_av] [facility] Body height 61.5 [in_i] 61.5 [in_i] [facility] ([facility]) 5'1.50" Body temperature 98.7 [degF] 98.7 [degF] [facility] ([facility]) Oxygen saturation in Arterial blood by Pulse oximetry 98 % 98 % [facility] ([facility]) Heart rate 91 /min 91 /min [facility] ([facility]) Diastolic blood pressure 70 mm[Hg] 70 mm[Hg] [facility] ([facility]) Systolic blood pressure 142 mm[Hg] 142 mm[Hg] [facility] Body weight 99.792 kg 99.792 kg [facility] ([facility]) Body mass index (BMI) [Ratio] 40.9 kg/m2 40.9 k g/m2 [facility] ([facility]) Body weight 220.00 [lb_av] 220.00 [lb_av] MEDEN T ([facility]) Body height 61.5 [in_i] 61.5 [in_i] [facility] ([facility]) 5'1.50" Oxygen saturation in Arterial blood by Pulse oximetry 97 % 97 % [facility] ([facility]) Heart rate 94 /min 94 /min [facility] ([facility]) Diastolic blood pressure 80 mm[Hg] 80 mm[Hg] [facility] ([facility]) Systolic blood pressure 120 mm[Hg] 120 mm[Hg] M [facility] ([facility]) Diastolic blood pressure 77 mm[Hg] 77 mm[Hg] eCW1 ([facility]) Systolic blood pressure 144 mm[Hg] 144 mm[Hg] e CW1 ([facility]) Body temperature 98.7 [degF] 98.7 [degF] eCW1 ( [facility]) Respiratory rate 18 /min 18 /min eCW1 ([facility]) Heart rate 85 /min 85 /min eCW1 ([facility]) Body mass index (BMI) [Ratio] 40.78 kg/m2 40.78 kg/m2 eCW1 ([facility]) Body height [in_us] eCW1 ([facility]) Body weight Measured [lb_av] eCW1 ([facility]) Body temperature 99.2 [degF] 99.2 [degF] eCW1 ( [facility]) Respiratory rate 18 /min 18 /min eCW1 ([facility]) Heart rate 90 /min 90 /min eCW1 ([facility]) Body mass index (BMI) [Ratio] 40.23 kg/m2 40.23 kg/m2 eCW1 ([facility]) Body height [in_us] eCW1 ([facility]) Body weight Measured 220 [lb_av] 220 [lb_av] eC W1 ([facility]) Patient Treatment Plan of Care Planned Activity Planned Date Details Description Data Source (s) Linagliptin 5 MG Oral Tablet [Tradjenta] 02/08/2020 12:00:00 AM EDT eCW1 ([facility]) Linagliptin 5 MG Oral Tablet [Tradjenta] 02/08/2020 12:00:00 AM EDT eCW1 ([facility]) Linagliptin 5 MG Oral Tablet [Tradjenta] 02/08/2020 12:00:00 AM EDT eCW1 ([facility]) Famotidine 20 MG Oral Tablet 11/30/2019 12:00:00 AM EDT eCW1 ([facility]) telmisartan 40 MG Oral Tablet 11/07/2019 12:00:00 AM EST eCW1 ([facility]) telmisartan 40 MG Oral Tablet 11/07/2019 12:00:00 AM EST eCW1 ([facility]) telmisartan 40 MG Oral Tablet 11/07/2019 12:00:00 AM EST eCW1 ([facility]) telmisartan 40 MG Oral Tablet 11/07/2019 12:00:00 AM EST eCW1 ([facility]) telmisartan 40 MG Oral Tablet 11/07/2019 12:00:00 AM EST eCW1 ([facility]) Prednisone 20 MG Oral Tablet 10/09/2019 12:00:00 AM EST eCW1 ([facility]) Loratadine 10 MG Oral Tablet [Claritin] 10/09/2019 12:00:00 AM EST eCW1 ([facility])
[2020-10-03] MEDS ORDERED: ACETAMINOPHEN TAB 650MG DOSE (2X325MG) PO ONE (13:00)
--- NOTE | 2020-10-03 13:45 | REP ---
INDICATION: r/o dvt COMPARISON: None. TECHNIQUE: Real time compression and duplex Doppler interrogation of the right lower extremity deep venous system is performed. FINDINGS: The right common femoral, superficial femoral and popliteal veins are fully compressible with transducer pressure and demonstrate normal spontaneous and phasic flow, without evidence of deep venous thrombosis. There is nonocclusive thrombus in the mid greater saphenous vein communicating with thrombosed venous varicosities more superficially. IMPRESSION: No evidence of deep venous thrombosis of the right lower extremity femoral popliteal venous system. There is nonocclusive thrombus in the mid greater saphenous vein communicating with thrombosed venous varicosities more superficially. <Electronically signed by Case Angel > 10/03/20 [id number]
[2020-10-03 14:40] LABS: BASO # 0.1 10^3/uL (0.0-0.2); BASO % 0.6 % (0.0-1.0); EOS # 0.2 10^3/uL (0.0-0.5); EOS % 2.2 % (0.0-3.0); HEMATOCRIT 41.6 % (36.0-47.0); HEMOGLOBIN 13.7 g/dl (12.0-15.5); LYMPH % 20.2 % (24.0-44.0); MEAN CORPUSCULAR HEMOGLOBIN 32.4 pg (27.0-33.0); MEAN CORPUSCULAR HGB CONC 32.9 g/dl (32.0-36.5); MEAN CORPUSCULAR VOLUME 98.3 fl (80.0-96.0); MONO # 0.8 10^3/uL (0.0-0.8); MONO % 8.1 % (0.0-5.0); NEUTROPHILS # 6.9 10^3/uL (1.5-8.5); NEUTROPHILS % 68.3 % (36.0-66.0); PLATELET COUNT, AUTOMATED 273 10^3/uL (150-450); RED BLOOD COUNT 4.23 10^6/uL (4.00-5.40); WHITE BLOOD COUNT 10.1 10^3/uL (4.0-10.0)
[2020-10-03 14:55] LABS: INR 1.02; PROTHROMBIN TIME 13.6 SECONDS (12.5-14.3)
[2020-10-03 14:56] LABS: CALCIUM LEVEL 10.4 MG/DL (8.8-10.2); CREATININE FOR GFR 1.71 MG/DL (0.55-1.30); GLOMERULAR FILTRATION RATE 31.2 (>39); PARTIAL THROMBOPLASTIN TIME 27.4 SECONDS (24.2-38.5)
[2020-10-03 15:46] VITALS: BP 159/73
== END 2020-10-03 15:57 | disposition home or self-care (01) ==
LOC: M ED 11:42
DX: N18.30 Chronic kidney disease, stage 3 unspecified (principal); I80.01 Phlebitis and thrombophlebitis of superficial vessels of right lower extremity; E11.9 Type 2 diabetes mellitus without complications; I12.9 Hypertensive chronic kidney disease with stage 1 through stage 4 chronic kidney disease, or unspecified chronic kidney disease; J45.909 Unspecified asthma, uncomplicated; E03.9 Hypothyroidism, unspecified; E66.9 Obesity, unspecified; Z79.899 Other long term (current) drug therapy; Z79.890 Hormone replacement therapy; Z79.82 Long term (current) use of aspirin; Z88.1 Allergy status to other antibiotic agents; Z88.2 Allergy status to sulfonamides; Z88.5 Allergy status to narcotic agent; Z88.8 Allergy status to other drugs, medicaments and biological substances

== ENCOUNTER → 2020-10-21 | Outpatient (CLI) | payer MEDICARE ==
--- NOTE | 2020-10-21 11:54 | REP ---
INDICATION: RIGHT LOWER LEG THROMBOPHLEBITIS COMPARISON: 10/03/2020. TECHNIQUE: Real time compression and duplex Doppler interrogation of the right lower extremity deep venous system is performed. FINDINGS: The right common femoral, superficial femoral and popliteal veins are fully compressible with transducer pressure and demonstrate normal spontaneous and phasic flow, without evidence of deep venous thrombosis. There is partial thrombosis of the proximal greater saphenous vein and anterior accessory greater saphenous vein. A large collateral vessel communicates with the proximal greater saphenous vein and communicates more distally with the greater saphenous vein in the upper thigh. There appears to be occlusive thrombus in the mid to distal greater saphenous vein with communicating thrombosed collateral venous structures. IMPRESSION: No evidence of deep venous thrombosis of the right lower extremity femoral popliteal venous system. Thrombus in the greater saphenous vein as discussed above. <Electronically signed by Case Angel > 10/21/20 [id number]
== END ==
LOC: M RAD 10:48
PROVIDERS: ATTEND Physician Assistant
DX: I80.01 Phlebitis and thrombophlebitis of superficial vessels of right lower extremity (principal); I82.811 Embolism and thrombosis of superficial veins of right lower extremity

== ENCOUNTER → 2020-11-13 | Outpatient (REF) | payer MEDICARE ==
[2020-11-13 16:33] LABS: BASO # 0.1 10^3/uL (0.0-0.2); BASO % 0.8 % (0.0-1.0); EOS # 0.4 10^3/uL (0.0-0.5); EOS % 4.6 % (0.0-3.0); HEMATOCRIT 43.4 % (36.0-47.0); HEMOGLOBIN 14.2 g/dl (12.0-15.5); LYMPH # 1.9 10^3/uL (1.5-5.0); LYMPH % 21.3 % (24.0-44.0); MEAN CORPUSCULAR HEMOGLOBIN 31.1 pg (27.0-33.0); MEAN CORPUSCULAR HGB CONC 32.7 g/dl (32.0-36.5); MEAN CORPUSCULAR VOLUME 95.2 fl (80.0-96.0); MONO # 0.8 10^3/uL (0.0-0.8); NEUTROPHILS # 5.6 10^3/uL (1.5-8.5); NEUTROPHILS % 64.1 % (36.0-66.0); PLATELET COUNT, AUTOMATED 333 10^3/uL (150-450); RED BLOOD COUNT 4.56 10^6/uL (4.00-5.40); WHITE BLOOD COUNT 8.7 10^3/uL (4.0-10.0)
[2020-11-13 17:08] LABS: ALBUMIN 4.2 GM/DL (3.2-5.2); CALCIUM LEVEL 9.9 MG/DL (8.8-10.2); CREATININE FOR GFR 1.7 MG/DL (0.55-1.30); GLOMERULAR FILTRATION RATE 31.4 (>39); POTASSIUM SERUM 4.7 MEQ/L (3.5-5.1); TOTAL PROTEIN 7.2 GM/DL (6.4-8.2)
[2020-11-13 19:20] LABS: HEMOGLOBIN A1c 6.5 %
== END ==
LOC: M SFHCCLAY 09:20
PROVIDERS: ATTEND Physician Assistant
DX: E11.8 Type 2 diabetes mellitus with unspecified complications (principal)

== ENCOUNTER → 2021-01-31 | Outpatient (CLI) | payer MEDICARE ==
--- NOTE | 2021-01-31 10:11 | REP ---
INDICATION: M25.561, PAIN RIGHT KNEE, M25.562, PAIN LEFT KNEE COMPARISON: Right knee dated 08/27/2008; left knee dated 11/15/2012 TECHNIQUE: AP, lateral, bilateral oblique and sunrise views. FINDINGS: Right knee demonstrates relatively moderate/early advanced tricompartmental osteoarthritic degenerative changes including cortical irregularity, osteophytosis, and chondrocalcinosis mildly increased from prior examination. No acute fracture or dislocation. No effusion. Left knee demonstrates relatively moderate/early advanced tricompartmental osteoarthritic degenerative changes including cortical irregularity, osteophytosis, and chondrocalcinosis mildly increased from prior examination. No acute fracture or dislocation. No definite effusion. IMPRESSION: Relatively symmetric moderate/early advanced tricompartmental osteoarthritic degenerative changes noted bilaterally. <Electronically signed by Bon Jeffries > 01/31/21 [id number]
== END ==
LOC: M CLY 09:28
PROVIDERS: ATTEND Physician Assistant
DX: M25.561 Pain in right knee (principal); M25.562 Pain in left knee

== ENCOUNTER → 2021-02-18 | Outpatient (REF) | payer MEDICARE ==
[2021-02-18 17:56] LABS: BASO # 0.1 10^3/uL (0.0-0.2); BASO % 0.9 % (0.0-1.0); EOS # 0.5 10^3/uL (0.0-0.5); EOS % 5.6 % (0.0-3.0); HEMATOCRIT 42.1 % (36.0-47.0); HEMOGLOBIN 13.8 g/dl (12.0-15.5); LYMPH # 2.3 10^3/uL (1.5-5.0); LYMPH % 26.3 % (24.0-44.0); MEAN CORPUSCULAR HEMOGLOBIN 31.7 pg (27.0-33.0); MEAN CORPUSCULAR HGB CONC 32.8 g/dl (32.0-36.5); MEAN CORPUSCULAR VOLUME 96.6 fl (80.0-96.0); MONO # 0.8 10^3/uL (0.0-0.8); MONO % 8.8 % (2.0-8.0); NEUTROPHILS # 5.1 10^3/uL (1.5-8.5); NEUTROPHILS % 58.1 % (36.0-66.0); PLATELET COUNT, AUTOMATED 306 10^3/uL (150-450); RED BLOOD COUNT 4.36 10^6/uL (4.00-5.40); WHITE BLOOD COUNT 8.7 10^3/uL (4.0-10.0)
[2021-02-18 18:17] LABS: HEMOGLOBIN A1c 7.2 %
[2021-02-18 18:35] LABS: BILIRUBIN,TOTAL 0.8 MG/DL (0.2-1.0); CALCIUM LEVEL 9.5 MG/DL (8.8-10.2); CHOLESTEROL RISK RATIO 2.708 (<5); CREATININE FOR GFR 1.6 MG/DL (0.55-1.30); FREE T4 1.39 NG/DL (0.76-1.46); GLOMERULAR FILTRATION RATE 33.6 (>39); POTASSIUM SERUM 4.1 MEQ/L (3.5-5.1); THYROID STIMULATING HORMONE 2.34 uIU/ML (0.358-3.740)
== END ==
LOC: M SFHCCAPE 08:34
PROVIDERS: ATTEND Physician Assistant
DX: E03.9 Hypothyroidism, unspecified (principal); E11.8 Type 2 diabetes mellitus with unspecified complications

== ENCOUNTER → 2021-04-09 | Outpatient (REF) | payer MEDICARE | LOC: M LAB REF 04-08 16:52 | PROVIDERS: ATTEND Nurse Practitioner Family | DX: E83.42 Hypomagnesemia (principal) ==

== ENCOUNTER → 2021-05-27 | Outpatient (REF) | payer MEDICARE ==
[2021-05-27 16:35] LABS: BASO # 0.1 10^3/uL (0.0-0.2); BASO % 0.7 % (0.0-1.0); EOS # 0.6 10^3/uL (0.0-0.5); EOS % 5.3 % (0.0-3.0); HEMATOCRIT 43.1 % (36.0-47.0); HEMOGLOBIN 14.3 g/dl (12.0-15.5); LYMPH # 2.5 10^3/uL (1.5-5.0); LYMPH % 24.1 % (24.0-44.0); MEAN CORPUSCULAR HEMOGLOBIN 31.6 pg (27.0-33.0); MEAN CORPUSCULAR HGB CONC 33.2 g/dl (32.0-36.5); MEAN CORPUSCULAR VOLUME 95.4 fl (80.0-96.0); MONO # 0.9 10^3/uL (0.0-0.8); NEUTROPHILS # 6.3 10^3/uL (1.5-8.5); NEUTROPHILS % 60.5 % (36.0-66.0); PLATELET COUNT, AUTOMATED 328 10^3/uL (150-450); RED BLOOD COUNT 4.52 10^6/uL (4.00-5.40); WHITE BLOOD COUNT 10.4 10^3/uL (4.0-10.0)
[2021-05-27 17:18] LABS: MALB URINE SIEMENS 63.1 MG/L; MAU/CREAT RATIO 51.7 MCG/MG (0.0-30.0)
[2021-05-27 17:21] LABS: ALBUMIN 3.8 GM/DL (3.2-5.2); BILIRUBIN,TOTAL 0.9 MG/DL (0.2-1.0); CALCIUM LEVEL 9.4 MG/DL (8.8-10.2); CREATININE FOR GFR 1.68 MG/DL (0.55-1.30); FREE T4 1.28 NG/DL (0.76-1.46); GLOMERULAR FILTRATION RATE 31.8 (>39); THYROID STIMULATING HORMONE 3.92 uIU/ML (0.358-3.740); TOTAL PROTEIN 7.1 GM/DL (6.4-8.2)
== END ==
LOC: M SFHCCAPE 08:38
PROVIDERS: ATTEND Physician Assistant
DX: E03.9 Hypothyroidism, unspecified (principal); E11.8 Type 2 diabetes mellitus with unspecified complications

== ENCOUNTER → 2021-06-06 | Outpatient (CLI) | payer MEDICARE ==
--- NOTE | 2021-06-06 14:32 | REP ---
INDICATION: OSTEOARTHIRITISOF KNEE,HAND COMPARISON: None. TECHNIQUE: Four views bilateral hands. FINDINGS: There is no evidence of acute fracture, dislocation, or intrinsic bone disease. On the left there is moderate narrowing with mild subchondral sclerosis and spurring at the 1st interphalangeal joint. There is moderately severe narrowing of the proximal and distal interphalangeal joints with moderate diffuse spurring at the margins of the joints as well as subchondral sclerosis and cystic change. There are mild erosive changes at some of the joints. On the right is there is mild radiocarpal joint space narrowing with subchondral sclerosis and cystic change. There is moderate narrowing with mild spurring and subchondral sclerosis at the 1st interphalangeal joint. There is moderately severe narrowing of the proximal and distal interphalangeal joints with moderate diffuse spurring at the margins of the joints as well as subchondral sclerosis and cystic change. There are moderate erosive changes at several joints. IMPRESSION: Erosive arthropathy primarily affecting the proximal and distal interphalangeal joints bilaterally as discussed above. <Electronically signed by Case Angel > 06/06/21 [id number]
--- NOTE | 2021-06-06 16:00 | REP ---
INDICATION: OSTEOARTHIRITISOF KNEE,HAND COMPARISON: 01/31/2021 TECHNIQUE: Five views bilateral FINDINGS: Right knee: There is tricompartmental marginal osteophytosis status quo. There is bicompartmental calcifications status quo. There is mild bicompartmental narrowing status quo. There is patellofemoral joint space narrowing status quo. There is no acute fracture, dislocation, or subluxation. Left knee: There is tricompartmental marginal osteophytosis heaviest medially and seen in conjunction with medial compartmental narrowing status quo. There is asymmetric patellofemoral joint space narrowing status quo. Medial and lateral compartmental calcifications are again noted. These are unchanged. No acute fracture, dislocation, or subluxation has developed. IMPRESSION: Stable chronic changes bilaterally as described above. Compartmental calcifications likely secondary to degenerative meniscal calcifications or chondrocalcinosis from calcium pyrophosphate deposition disorder. <Electronically signed by Elgin Trivedi > 06/06/21 [id number]
== END ==
LOC: M CLY 13:10
PROVIDERS: ATTEND Internal Medicine
DX: M17.10 Unilateral primary osteoarthritis, unspecified knee (principal); M19.049 Primary osteoarthritis, unspecified hand

== ENCOUNTER → 2021-07-03 | Outpatient (REF) | payer MEDICARE ==
[2021-07-03 16:08] LABS: BASO # 0.1 10^3/uL (0.0-0.2); BASO % 0.7 % (0.0-1.0); EOS # 0.4 10^3/uL (0.0-0.5); EOS % 3.9 % (0.0-3.0); HEMATOCRIT 41.5 % (36.0-47.0); HEMOGLOBIN 13.9 g/dl (12.0-15.5); LYMPH # 1.9 10^3/uL (1.5-5.0); LYMPH % 17.6 % (24.0-44.0); MEAN CORPUSCULAR HEMOGLOBIN 31.7 pg (27.0-33.0); MEAN CORPUSCULAR HGB CONC 33.5 g/dl (32.0-36.5); MEAN CORPUSCULAR VOLUME 94.7 fl (80.0-96.0); MONO # 0.8 10^3/uL (0.0-0.8); MONO % 7.4 % (2.0-8.0); NEUTROPHILS # 7.7 10^3/uL (1.5-8.5); NEUTROPHILS % 69.9 % (36.0-66.0); PLATELET COUNT, AUTOMATED 317 10^3/uL (150-450); RED BLOOD COUNT 4.38 10^6/uL (4.00-5.40)
[2021-07-03 16:48] LABS: ALBUMIN 3.7 GM/DL (3.2-5.2); ALT/SGPT 35 U/L (12-78); BILIRUBIN,TOTAL 0.7 MG/DL (0.2-1.0); BLOOD UREA NITROGEN 31 MG/DL (7-18); CALCIUM LEVEL 10.5 MG/DL (8.8-10.2); CARBON DIOXIDE LEVEL 28 MEQ/L (21-32); CHLORIDE LEVEL 103 MEQ/L (98-107); CREATININE FOR GFR 1.71 MG/DL (0.55-1.30); FERRITIN 184 NG/ML (8-252); FOLATE > 24.0 NG/ML; FREE T4 1.29 NG/DL (0.76-1.46); GLOMERULAR FILTRATION RATE 31.2 (>39); GLUCOSE, FASTING 252 MG/DL (70-100); IRON (FE) 91 UG/DL (50-170); MAGNESIUM LEVEL 1.8 MG/DL (1.8-2.4); PERCENT SATURATION 24.8 % (13.2-45.0); POTASSIUM SERUM 4.3 MEQ/L (3.5-5.1); SODIUM LEVEL 138 MEQ/L (136-145); TOTAL 25(OH) VITAMIN D 58.3 NG/ML (30.0-100.0); TOTAL IRON BINDING CAPACITY 367 UG/DL (250-450); TOTAL PROTEIN 7.1 GM/DL (6.4-8.2); VITAMIN B12 LEVEL 1085 PG/ML
== END ==
LOC: M SFHCCAPE 10:09
PROVIDERS: ATTEND Physician Assistant
DX: R53.83 Other fatigue (principal); Z79.899 Other long term (current) drug therapy

== ENCOUNTER → 2021-07-10 | Outpatient (REF) | payer MEDICARE | LOC: M LAB REF 13:28 | PROVIDERS: ATTEND Nurse Practitioner Family | DX: E83.42 Hypomagnesemia (principal); N18.32 Chronic kidney disease, stage 3b ==

== ENCOUNTER → 2021-08-26 | Outpatient (REF) | payer MEDICARE ==
[2021-08-26 12:11] LABS: CALCIUM LEVEL 10.1 MG/DL (8.8-10.2); PHOSPHORUS LEVEL 3.7 MG/DL (2.5-4.9)
[2021-08-26 13:20] LABS: PTH INTACT 16.5 PG/ML (18.5-88.0)
== END ==
LOC: M SFHCRHEU 08:36
PROVIDERS: ATTEND Internal Medicine
DX: M11.20 Other chondrocalcinosis, unspecified site (principal)

== ENCOUNTER → 2021-08-28 | Outpatient (REF) | payer MEDICARE ==
[2021-08-28 16:20] LABS: BASO # 0.1 10^3/uL (0.0-0.2); BASO % 0.7 % (0.0-1.0); EOS # 0.3 10^3/uL (0.0-0.5); HEMATOCRIT 43.6 % (36.0-47.0); HEMOGLOBIN 14.6 g/dl (12.0-15.5); LYMPH # 1.7 10^3/uL (1.5-5.0); LYMPH % 16.1 % (24.0-44.0); MEAN CORPUSCULAR HEMOGLOBIN 31.9 pg (27.0-33.0); MEAN CORPUSCULAR HGB CONC 33.5 g/dl (32.0-36.5); MEAN CORPUSCULAR VOLUME 95.2 fl (80.0-96.0); MONO # 0.7 10^3/uL (0.0-0.8); MONO % 6.5 % (2.0-8.0); NEUTROPHILS # 7.6 10^3/uL (1.5-8.5); NEUTROPHILS % 73.3 % (36.0-66.0); PLATELET COUNT, AUTOMATED 324 10^3/uL (150-450); RED BLOOD COUNT 4.58 10^6/uL (4.00-5.40); WHITE BLOOD COUNT 10.4 10^3/uL (4.0-10.0)
[2021-08-28 16:33] LABS: HEMOGLOBIN A1c 7.4 %
[2021-08-28 16:50] LABS: ALBUMIN 3.9 GM/DL (3.2-5.2); BILIRUBIN,TOTAL 0.8 MG/DL (0.2-1.0); CALCIUM LEVEL 10.5 MG/DL (8.8-10.2); CREATININE FOR GFR 1.71 MG/DL (0.55-1.30); GLOMERULAR FILTRATION RATE 31.1 (>39); POTASSIUM SERUM 4.3 MEQ/L (3.5-5.1); TOTAL PROTEIN 7.3 GM/DL (6.4-8.2); URIC ACID 7.7 MG/DL (2.6-6.0)
== END ==
LOC: M SFHCCAPE 09:57
PROVIDERS: ATTEND Physician Assistant
DX: E11.8 Type 2 diabetes mellitus with unspecified complications (principal)

== ENCOUNTER → 2021-08-29 | Outpatient (CLI) | payer MEDICARE | LOC: M WHC 08:44 | PROVIDERS: ATTEND Obstetrics & Gynecology | DX: Z12.31 Encounter for screening mammogram for malignant neoplasm of breast (principal) ==

== ENCOUNTER → 2021-11-24 | Outpatient (REF) | payer MEDICARE ==
[2021-11-24 16:42] LABS: BASO # 0.1 10^3/uL (0.0-0.2); BASO % 0.8 % (0.0-1.0); EOS # 0.4 10^3/uL (0.0-0.5); EOS % 4.6 % (0.0-3.0); HEMATOCRIT 45.3 % (36.0-47.0); HEMOGLOBIN 15.1 g/dl (12.0-15.5); LYMPH # 2.6 10^3/uL (1.5-5.0); LYMPH % 29.6 % (24.0-44.0); MEAN CORPUSCULAR HGB CONC 33.3 g/dl (32.0-36.5); MONO # 0.9 10^3/uL (0.0-0.8); MONO % 9.9 % (2.0-8.0); NEUTROPHILS # 4.8 10^3/uL (1.5-8.5); NEUTROPHILS % 54.6 % (36.0-66.0); PLATELET COUNT, AUTOMATED 338 10^3/uL (150-450); RED BLOOD COUNT 4.72 10^6/uL (4.00-5.40); WHITE BLOOD COUNT 8.8 10^3/uL (4.0-10.0)
[2021-11-24 17:05] LABS: ALBUMIN 4.1 GM/DL (3.2-5.2); BILIRUBIN,TOTAL 0.9 MG/DL (0.2-1.0); CALCIUM LEVEL 9.9 MG/DL (8.8-10.2); CHOLESTEROL RISK RATIO 3.062 (<5); CREATININE FOR GFR 1.64 MG/DL (0.55-1.30); GLOMERULAR FILTRATION RATE 32.6 (>39); TOTAL PROTEIN 7.3 GM/DL (6.4-8.2)
[2021-11-24 17:16] LABS: HEMOGLOBIN A1c 6.7 %
== END ==
LOC: M SFHCCAPE 08:34
PROVIDERS: ATTEND Physician Assistant
DX: E11.8 Type 2 diabetes mellitus with unspecified complications (principal)

== ENCOUNTER → 2022-01-19 | Outpatient (REF) | payer MEDICARE ==
[2022-01-19 17:42] LABS: CALCIUM LEVEL 10.9 MG/DL (8.8-10.2)
[2022-01-19 18:01] LABS: PTH INTACT 16.8 PG/ML (18.5-88.0)
== END ==
LOC: M SFHCRHEU 12:22
PROVIDERS: ATTEND Internal Medicine
DX: M11.20 Other chondrocalcinosis, unspecified site (principal)

== ENCOUNTER 2022-02-28 13:42 | Emergency (ER) | payer MEDICARE, OTHER ==
[~2022-02-28] VITALS: Ht 157.5 cm; Wt 93.2 kg
[2022-02-28] MEDS ORDERED: TRUL10IN (14:07)
[2022-02-28] MEDS ORDERED: ACETAMINOPHEN 500 MG TAB PO ONE (15:40)
[2022-02-28] MEDS ORDERED: NEOSPORIN OINT 0.9 GM PKT TOP ONE (15:40)
[2022-02-28] MEDS ORDERED: BACI500O8 TOP (16:11)
[2022-02-28 16:17] VITALS: BP 166/77
== END 2022-02-28 16:27 | disposition home or self-care (01) ==
LOC: M ED 13:42 → EDBD 13:42 → EDSEX 13:42 → M ED 16:27
DX: S60.512A Abrasion of left hand, initial encounter (principal); S80.12XA Contusion of left lower leg, initial encounter; S50.11XA Contusion of right forearm, initial encounter; V49.40XA Driver injured in collision with unspecified motor vehicles in traffic accident, initial encounter; I10 Essential (primary) hypertension; E11.9 Type 2 diabetes mellitus without complications; Z88.1 Allergy status to other antibiotic agents; Z88.2 Allergy status to sulfonamides; Z88.5 Allergy status to narcotic agent; Z88.8 Allergy status to other drugs, medicaments and biological substances

== ENCOUNTER → 2022-03-03 | Outpatient (REF) | payer MEDICARE ==
[~2022-03-03] MED LIST changes: +BACI500O8 TOP; +TRUL10IN
[2022-03-03 16:13] LABS: BASO # 0.1 10^3/uL (0.0-0.2); BASO % 0.6 % (0.0-1.0); EOS # 0.4 10^3/uL (0.0-0.5); EOS % 3.3 % (0.0-3.0); HEMATOCRIT 39.3 % (36.0-47.0); HEMOGLOBIN 12.9 g/dl (12.0-15.5); LYMPH % 16.4 % (24.0-44.0); MEAN CORPUSCULAR HEMOGLOBIN 31.7 pg (27.0-33.0); MEAN CORPUSCULAR HGB CONC 32.8 g/dl (32.0-36.5); MEAN CORPUSCULAR VOLUME 96.6 fl (80.0-96.0); MONO # 0.9 10^3/uL (0.0-0.8); MONO % 7.5 % (2.0-8.0); NEUTROPHILS # 8.6 10^3/uL (1.5-8.5); NEUTROPHILS % 71.6 % (36.0-66.0); PLATELET COUNT, AUTOMATED 327 10^3/uL (150-450); RED BLOOD COUNT 4.07 10^6/uL (4.00-5.40)
[2022-03-03 17:30] LABS: ALBUMIN 3.8 GM/DL (3.2-5.2); BILIRUBIN,TOTAL 1.2 MG/DL (0.2-1.0); CALCIUM LEVEL 9.3 MG/DL (8.8-10.2); CHOLESTEROL RISK RATIO 2.717 (<5); CREATININE FOR GFR 1.58 MG/DL (0.55-1.30); POTASSIUM SERUM 3.5 MEQ/L (3.5-5.1); THYROID STIMULATING HORMONE 1.98 uIU/ML (0.358-3.740); TOTAL 25(OH) VITAMIN D 49.8 NG/ML (30.0-100.0)
[2022-03-03 18:07] LABS: HEMOGLOBIN A1c 6.4 %
== END ==
LOC: M SFHCCAPE 08:22
PROVIDERS: ATTEND Physician Assistant
DX: E11.8 Type 2 diabetes mellitus with unspecified complications (principal); E03.9 Hypothyroidism, unspecified; E78.2 Mixed hyperlipidemia; E83.52 Hypercalcemia

== ENCOUNTER → 2022-03-06 | Outpatient (CLI) | payer OTHER ==
[~2022-03-06] MED LIST changes: +POTA1TAB14; +TRAD5TAB; +TRIA37.5
== END ==
LOC: M CLY 09:39
PROVIDERS: ATTEND Physician Assistant
DX: M79.605 Pain in left leg (principal); M25.562 Pain in left knee; V87.7XXD Person injured in collision between other specified motor vehicles (traffic), subsequent encounter

== ENCOUNTER 2022-03-09 14:59 | Emergency (ER) | payer OTHER ==
[~2022-03-09] VITALS: Ht 170.2 cm; Wt 134.1 kg
[~2022-03-09 14:59] MED LIST changes: -POTA1TAB14; -TRAD5TAB; -TRIA37.5
[2022-03-09] MEDS ORDERED: TRAD5TAB (15:24)
[2022-03-09] MEDS ORDERED: POTA1TAB14 (15:24)
[2022-03-09] MEDS ORDERED: TRIA37.5 (15:26)
[2022-03-09] MEDS ORDERED: ACETAMINOPHEN 325 MG TAB PO ONE (19:00)
[2022-03-09 20:31] VITALS: BP 137/65
== END 2022-03-09 20:59 | disposition home or self-care (01) ==
LOC: M ED 14:59
DX: S80.12XA Contusion of left lower leg, initial encounter (principal); V89.2XXA Person injured in unspecified motor-vehicle accident, traffic, initial encounter; E03.9 Hypothyroidism, unspecified; E11.9 Type 2 diabetes mellitus without complications; I10 Essential (primary) hypertension; Z88.1 Allergy status to other antibiotic agents; Z88.2 Allergy status to sulfonamides; Z88.5 Allergy status to narcotic agent; Z88.8 Allergy status to other drugs, medicaments and biological substances

== ENCOUNTER → 2022-05-20 | Outpatient (CLI) | payer OTHER ==
[~2022-05-20] MED LIST changes: +POTA1TAB14; +TRAD5TAB; +TRIA37.5
== END ==
LOC: M PLAIMG 10:40
PROVIDERS: ATTEND Physician Assistant
DX: M25.562 Pain in left knee (principal); M79.631 Pain in right forearm; V87.7XXD Person injured in collision between other specified motor vehicles (traffic), subsequent encounter

== ENCOUNTER → 2022-05-27 | Outpatient (CLI) | payer OTHER | LOC: M PLAIMG 12:11 | PROVIDERS: ATTEND Physician Assistant | DX: M25.552 Pain in left hip (principal); M79.631 Pain in right forearm ==

== ENCOUNTER → 2022-07-29 | Outpatient (REF) | payer MEDICARE ==
[2022-07-29 18:35] LABS: HEMOGLOBIN A1c 6.5 %
[2022-07-29 18:42] LABS: BASO # 0.1 10^3/uL (0.0-0.2); BASO % 0.6 % (0.0-1.0); EOS # 0.4 10^3/uL (0.0-0.5); EOS % 3.3 % (0.0-3.0); HEMATOCRIT 42.3 % (36.0-47.0); HEMOGLOBIN 13.8 g/dl (12.0-15.5); LYMPH # 2.6 10^3/uL (1.5-5.0); LYMPH % 23.7 % (24.0-44.0); MEAN CORPUSCULAR HEMOGLOBIN 31.8 pg (27.0-33.0); MEAN CORPUSCULAR HGB CONC 32.6 g/dl (32.0-36.5); MEAN CORPUSCULAR VOLUME 97.5 fl (80.0-96.0); MONO # 0.9 10^3/uL (0.0-0.8); MONO % 8.1 % (2.0-8.0); NEUTROPHILS # 6.9 10^3/uL (1.5-8.5); NEUTROPHILS % 63.9 % (36.0-66.0); PLATELET COUNT, AUTOMATED 345 10^3/uL (150-450); RED BLOOD COUNT 4.34 10^6/uL (4.00-5.40); WHITE BLOOD COUNT 10.8 10^3/uL (4.0-10.0)
[2022-07-29 19:02] LABS: ALBUMIN 3.9 GM/DL (3.2-5.2); BILIRUBIN,TOTAL 0.9 MG/DL (0.2-1.0); CALCIUM LEVEL 9.8 MG/DL (8.8-10.2); CHOLESTEROL RISK RATIO 2.937 (<5); CREATININE FOR GFR 1.43 MG/DL (0.55-1.30); FREE T4 1.12 NG/DL (0.76-1.46); GLOMERULAR FILTRATION RATE 38.2 (>39); POTASSIUM SERUM 4.1 MEQ/L (3.5-5.1); THYROID STIMULATING HORMONE 2.92 uIU/ML (0.358-3.740); TOTAL PROTEIN 7.1 GM/DL (6.4-8.2)
== END ==
LOC: M SFHCCAPE 08:35
PROVIDERS: ATTEND Physician Assistant
DX: E11.8 Type 2 diabetes mellitus with unspecified complications (principal); E03.9 Hypothyroidism, unspecified

== ENCOUNTER → 2022-08-20 | Outpatient (REF) | payer MEDICARE | LOC: M LABDRWCV 16:44 | PROVIDERS: ATTEND Internal Medicine Cardiovascular Disease | DX: I49.1 Atrial premature depolarization (principal) ==

== ENCOUNTER → 2022-10-12 | Outpatient (CLI) | payer MEDICARE | LOC: M WHC 11:44 | PROVIDERS: ATTEND Advanced Practice Midwife | DX: Z12.31 Encounter for screening mammogram for malignant neoplasm of breast (principal) ==

== ENCOUNTER → 2022-10-28 | Outpatient (REF) | payer MEDICARE ==
[2022-10-28 18:22] LABS: BASO # 0.1 10^3/uL (0.0-0.2); BASO % 0.7 % (0.0-1.0); EOS # 0.4 10^3/uL (0.0-0.5); EOS % 3.8 % (0.0-3.0); HEMATOCRIT 42.5 % (36.0-47.0); HEMOGLOBIN 14.4 g/dl (12.0-15.5); LYMPH # 2.5 10^3/uL (1.5-5.0); LYMPH % 23.9 % (24.0-44.0); MEAN CORPUSCULAR HEMOGLOBIN 32.4 pg (27.0-33.0); MEAN CORPUSCULAR HGB CONC 33.9 g/dl (32.0-36.5); MEAN CORPUSCULAR VOLUME 95.5 fl (80.0-96.0); MONO % 9.1 % (2.0-8.0); NEUTROPHILS # 6.5 10^3/uL (1.5-8.5); NEUTROPHILS % 62.1 % (36.0-66.0); PLATELET COUNT, AUTOMATED 335 10^3/uL (150-450); RED BLOOD COUNT 4.45 10^6/uL (4.00-5.40); WHITE BLOOD COUNT 10.4 10^3/uL (4.0-10.0)
[2022-10-28 18:52] LABS: ALBUMIN 4.1 G/DL (3.2-5.2); BILIRUBIN,TOTAL 1.5 MG/DL (0.3-1.2); CALCIUM LEVEL 9.9 MG/DL (8.3-10.6); CREATININE FOR GFR 1.42 MG/DL (0.55-1.30); GLOMERULAR FILTRATION RATE 38.4 (>39); TOTAL PROTEIN 6.9 G/DL (5.7-8.2)
[2022-10-28 19:20] LABS: HEMOGLOBIN A1c 6.1 % (4.0-6.0)
== END ==
LOC: M SFHCCAPE 09:15
PROVIDERS: ATTEND Physician Assistant
DX: E11.8 Type 2 diabetes mellitus with unspecified complications (principal)

== ENCOUNTER 2022-11-05 16:26 | Inpatient (IN) | payer MEDICARE ==
[~2022-11-05] VITALS: Ht 157.5 cm; Wt 75.3 kg
[2022-11-05 19:28] LABS: BASO # 0.1 10^3/uL (0.0-0.2); BASO % 0.7 % (0.0-1.0); EOS # 0.3 10^3/uL (0.0-0.5); EOS % 1.9 % (0.0-3.0); HEMATOCRIT 43.6 % (36.0-47.0); LYMPH # 2.9 10^3/uL (1.5-5.0); LYMPH % 21.4 % (24.0-44.0); MEAN CORPUSCULAR HEMOGLOBIN 32.4 pg (27.0-33.0); MEAN CORPUSCULAR HGB CONC 34.4 g/dl (32.0-36.5); MEAN CORPUSCULAR VOLUME 94.2 fl (80.0-96.0); MONO # 1.1 10^3/uL (0.0-0.8); MONO % 8.4 % (2.0-8.0); PLATELET COUNT, AUTOMATED 345 10^3/uL (150-450); RED BLOOD COUNT 4.63 10^6/uL (4.00-5.40); WHITE BLOOD COUNT 13.4 10^3/uL (4.0-10.0)
[2022-11-05 19:38] LABS: INR 0.95; PROTHROMBIN TIME 12.9 SECONDS (12.5-14.5)
[2022-11-05 19:39] LABS: PARTIAL THROMBOPLASTIN TIME 27.7 SECONDS (24.8-34.2)
[2022-11-05 19:52] LABS: LIPASE 50 U/L (12-53)
[2022-11-05 19:54] LABS: CPK CREATINE PHOSPHOKINASE 67 U/L (34-145)
[2022-11-05 19:58] LABS: ALBUMIN 4.4 G/DL (3.2-5.2); ALKALINE PHOSPHATASE 64 U/L (46-116); ALT/SGPT 31 U/L (7.0-40); AST/SGOT 30 U/L (<34); BILIRUBIN,DIRECT 0.4 MG/DL (<0.4); BILIRUBIN,TOTAL 1.2 MG/DL (0.3-1.2); BLOOD UREA NITROGEN 36 MG/DL (9-23); CALCIUM LEVEL 10.7 MG/DL (8.3-10.6); CARBON DIOXIDE LEVEL 28 MMOL/L (20-31); CHLORIDE LEVEL 100 MMOL/L (98-107); CK-MB VALUE MASS < 1.0 NG/ML (<3.6); CREATININE FOR GFR 1.44 MG/DL (0.55-1.30); FREE T4 1.58 NG/DL (0.89-1.76); GLOMERULAR FILTRATION RATE 37.8 (>39); GLUCOSE, FASTING 145 MG/DL (74-106); MB/CK RELATIVE INDEX 1.49 (< OR =4); POTASSIUM SERUM 3.9 MMOL/L (3.5-5.1); SODIUM LEVEL 138 MMOL/L (136-145); THYROID STIMULATING HORMONE 3.489 uIU/ML (0.55-4.78); TOTAL PROTEIN 7.4 G/DL (5.7-8.2)
[2022-11-05] MEDS: METOPROLOL 5 MG/5 ML VIAL IV SCH ×6 (20:54→21:40)
[2022-11-05] MEDS ORDERED: atenoloL 25 MG TAB PO ONE (21:35)
[2022-11-05] MEDS ORDERED: APIXABAN 5 MG TAB (ELIQUIS) PO ONE (21:35)
[2022-11-05 21:59] LABS: RSV AMPLIFICATION NEGATIVE (NEGATIVE)
[2022-11-05] MEDS ORDERED: GLUCOSE 4GM CHEW TABLET PO PRN (23:05)
[2022-11-05] MEDS ORDERED: DEXTROSE 50% 50ML SYRINGE IV PRN (23:05)
[2022-11-05] MEDS ORDERED: ACETAMINOPHEN TAB 650MG DOSE (2X325MG) PO PRN (23:05)
[2022-11-05] MEDS ORDERED: GLUCAGON INJ 1MG VIAL SC PRN (23:05)
[2022-11-05] MEDS ORDERED: MAALOX 30 ML SUSP *UDC PO PRN (23:05)
[2022-11-05] MEDS ORDERED: MOM 30ML SUSPENSION UDC PO PRN (23:05)
[2022-11-05] MEDS ORDERED: GNP1000T11 PO (23:25)
[2022-11-05] MEDS ORDERED: TRIA37.5 PO (23:25)
[2022-11-05] MEDS ORDERED: AMLO1TAB25 PO (23:25)
[2022-11-05] MEDS ORDERED: OYST1TAB PO (23:25)
[2022-11-05] MEDS ORDERED: POTA1TAB14 PO (23:25)
[2022-11-05] MEDS ORDERED: SIMV20TA22 PO (23:25)
[2022-11-05] MEDS ORDERED: HOME MED LIST COMPLETE! XX SCH (23:25)
[2022-11-05] MEDS ORDERED: TRUL10IN SC (23:25)
[2022-11-05] MEDS ORDERED: SYNT150T PO (23:25)
[2022-11-05] MEDS ORDERED: VITMTA PO (23:25)
[2022-11-05] MEDS ORDERED: GLIP-162 PO (23:25)
[2022-11-05] MEDS ORDERED: ALBU8.5H INH (23:25)
[2022-11-05] MEDS ORDERED: TUMS500C PO (23:25)
[2022-11-05] MEDS ORDERED: FLUTICASONE PROP 0.05% NASAL SPRAY 16 GM (FLONASE) PRN (23:55)
[2022-11-05] MEDS ORDERED: ALBUTEROL 90 MCG/ACT 8GM HFA INHALER INH PRN (23:55)
[2022-11-06] MEDS: ADVAIR HFA 230/21MCG INHALER INH SCH ×2 (00:40→09:02)
[2022-11-06] MEDS: METOPROLOL 5 MG/5 ML VIAL IV SCH (00:41)
[2022-11-06] MEDS ORDERED: METOPROLOL TART 25 MG TABLET PO SCH (06:00)
[2022-11-06] MEDS ORDERED: LEVOTHYROXINE 150MCG TABLET (0.15MG) PO SCH (06:00)
[2022-11-06 06:18] LABS: BASO # 0.1 10^3/uL (0.0-0.2); BASO % 0.5 % (0.0-1.0); EOS # 0.3 10^3/uL (0.0-0.5); EOS % 3.3 % (0.0-3.0); HEMATOCRIT 40.8 % (36.0-47.0); LYMPH # 2.1 10^3/uL (1.5-5.0); LYMPH % 19.9 % (24.0-44.0); MEAN CORPUSCULAR HEMOGLOBIN 32.9 pg (27.0-33.0); MEAN CORPUSCULAR HGB CONC 34.3 g/dl (32.0-36.5); MEAN CORPUSCULAR VOLUME 95.8 fl (80.0-96.0); MONO % 9.3 % (2.0-8.0); NEUTROPHILS # 6.9 10^3/uL (1.5-8.5); NEUTROPHILS % 66.5 % (36.0-66.0); PLATELET COUNT, AUTOMATED 309 10^3/uL (150-450); RED BLOOD COUNT 4.26 10^6/uL (4.00-5.40); WHITE BLOOD COUNT 10.4 10^3/uL (4.0-10.0)
[2022-11-06 06:28] LABS: CALCIUM LEVEL 10.1 MG/DL (8.3-10.6); CREATININE FOR GFR 1.29 MG/DL (0.55-1.30); GLOMERULAR FILTRATION RATE 42.9 (>39); MAGNESIUM LEVEL 1.5 MG/DL (1.8-2.4); POTASSIUM SERUM 3.5 MMOL/L (3.5-5.1)
[2022-11-06] MEDS ORDERED: MAG SULF 1GM/100ML (MAG RUN) 1 GM in IV 1 EA IV ONE ×2 (07:05→09:00)
[2022-11-06] MEDS: INSULIN LISPRO (NovoLOG) PER UNIT SC SCH ×2 (08:22→13:13)
[2022-11-06] MEDS ORDERED: LORATADINE 10 MG TAB PO SCH (09:00)
[2022-11-06] MEDS ORDERED: DYAZIDE 37.5/25 CAP (TRIAM/HCTZ) PO SCH (09:00)
[2022-11-06] MEDS ORDERED: ASPIRIN 81MG ENTERIC TABLET PO SCH (09:00)
[2022-11-06] MEDS ORDERED: OYSTER SHELL CALCIUM 500 MG TAB PO SCH (09:00)
[2022-11-06] MEDS ORDERED: MULTIVITAMINS/MINERALS THERAP 1 TAB PO SCH (09:00)
[2022-11-06] MEDS ORDERED: APIXABAN 5 MG TAB (ELIQUIS) PO SCH (09:00)
[2022-11-06] MEDS ORDERED: FARX1TAB3 PO (10:34)
[2022-11-06] MEDS ORDERED: BISOPROLOL FUM 2.5 MG PER 1/2TAB PO SCH (10:55)
[2022-11-06 12:54] VITALS: BP 146/70
[2022-11-06] MEDS ORDERED: BISO5TAB14 PO (13:57)
[2022-11-06] MEDS ORDERED: ELIQ5TAB PO (13:57)
[2022-11-06 14:00] VITALS: BP 146/70
[2022-11-06] MEDS ORDERED: SIMVASTATIN 20 MG TAB PO SCH (21:00)
[2022-11-06] MEDS ORDERED: INSULIN LISPRO (NovoLOG) PER UNIT SC SCH (21:00)
== END 2022-11-06 16:00 | disposition home or self-care (01) | DRG 309 ==
LOC: M ED 16:26 → M ED INP 22:00 → ENRESERV 11-06 11:10 → M PCU 11-06 12:40
PROVIDERS: ADMIT Family Medicine; ATTEND Internal Medicine
DX: I48.91 Unspecified atrial fibrillation (principal); I50.32 Chronic diastolic (congestive) heart failure; I13.0 Hypertensive heart and chronic kidney disease with heart failure and stage 1 through stage 4 chronic kidney disease, or unspecified chronic kidney disease; E11.22 Type 2 diabetes mellitus with diabetic chronic kidney disease; E78.5 Hyperlipidemia, unspecified; M17.0 Bilateral primary osteoarthritis of knee; N18.30 Chronic kidney disease, stage 3 unspecified; E03.9 Hypothyroidism, unspecified; K21.9 Gastro-esophageal reflux disease without esophagitis; J30.2 Other seasonal allergic rhinitis; R91.8 Other nonspecific abnormal finding of lung field; D86.0 Sarcoidosis of lung; I27.81 Cor pulmonale (chronic); Z98.41 Cataract extraction status, right eye; Z88.8 Allergy status to other drugs, medicaments and biological substances; Z98.42 Cataract extraction status, left eye; Z79.82 Long term (current) use of aspirin; Z79.890 Hormone replacement therapy; Z79.84 Long term (current) use of oral hypoglycemic drugs; Z79.899 Other long term (current) drug therapy; Z88.0 Allergy status to penicillin; Z88.1 Allergy status to other antibiotic agents; Z88.2 Allergy status to sulfonamides; Z88.5 Allergy status to narcotic agent

== ENCOUNTER → 2022-12-22 | Outpatient (CLI) | payer MEDICARE ==
[~2022-12-22] MED LIST changes: +ALBU8.5H INH; +AMLO1TAB25 PO; +BISO5TAB14 PO; +ELIQ5TAB PO; +FARX1TAB3 PO; +GLIP-162 PO; +GNP1000T11 PO; +OYST1TAB PO; +POTA1TAB14 PO; +SIMV20TA22 PO; +SYNT150T PO; +TRIA37.5 PO; +TRUL10IN SC; +TUMS500C PO; +VITMTA PO
== END ==
LOC: M WHC 11:42
PROVIDERS: ATTEND Physician Assistant
DX: N64.4 Mastodynia (principal)

== ENCOUNTER → 2023-01-18 | Outpatient (REF) | payer MEDICARE | LOC: M SFHCCAPE 16:52 | PROVIDERS: ATTEND Physician Assistant | DX: J01.10 Acute frontal sinusitis, unspecified (principal) ==

== ENCOUNTER → 2023-01-28 | Outpatient (REF) | payer MEDICARE ==
[~2023-01-28] MED LIST changes: +POTA-298; +POTA-298 PO; -POTA1TAB14; -POTA1TAB14 PO
[2023-01-28 17:58] LABS: BASO # 0.1 10^3/uL (0.0-0.2); BASO % 0.7 % (0.0-1.0); EOS # 0.2 10^3/uL (0.0-0.5); EOS % 2.3 % (0.0-3.0); HEMATOCRIT 48.1 % (36.0-47.0); LYMPH # 2.8 10^3/uL (1.5-5.0); LYMPH % 28.7 % (24.0-44.0); MEAN CORPUSCULAR HGB CONC 33.3 g/dl (32.0-36.5); MEAN CORPUSCULAR VOLUME 96.2 fl (80.0-96.0); MONO % 10.4 % (2.0-8.0); NEUTROPHILS # 5.5 10^3/uL (1.5-8.5); NEUTROPHILS % 57.3 % (36.0-66.0); PLATELET COUNT, AUTOMATED 494 10^3/uL (150-450); WHITE BLOOD COUNT 9.6 10^3/uL (4.0-10.0)
[2023-01-28 18:09] LABS: ALBUMIN 3.7 G/DL (3.2-5.2); ALKALINE PHOSPHATASE 63 U/L (46-116); ALT/SGPT 26 U/L (7.0-40); AST/SGOT < 8 U/L (<34); BILIRUBIN,TOTAL 1.1 MG/DL (0.3-1.2); BLOOD UREA NITROGEN 43 MG/DL (9-23); CALCIUM LEVEL 10.5 MG/DL (8.3-10.6); CARBON DIOXIDE LEVEL 26 MMOL/L (20-31); CHLORIDE LEVEL 100 MMOL/L (98-107); CREATININE FOR GFR 1.79 MG/DL (0.55-1.30); GLOMERULAR FILTRATION RATE 29.4 (>39); GLUCOSE, FASTING 200 MG/DL (74-106); SODIUM LEVEL 137 MMOL/L (136-145); TOTAL PROTEIN 6.7 G/DL (5.7-8.2)
[2023-01-28 18:30] LABS: HEMOGLOBIN A1c 6.8 % (4.0-6.0)
== END ==
LOC: M SFHCCAPE 08:32
PROVIDERS: ATTEND Physician Assistant
DX: I10 Essential (primary) hypertension (principal); E11.8 Type 2 diabetes mellitus with unspecified complications; D86.9 Sarcoidosis, unspecified

== ENCOUNTER → 2023-04-28 | Outpatient (REF) | payer MEDICARE ==
[2023-04-28 17:13] LABS: HEMOGLOBIN A1c 6.7 % (4.0-6.0)
== END ==
LOC: M SFHCCAPE 08:24
PROVIDERS: ATTEND Physician Assistant
DX: E11.8 Type 2 diabetes mellitus with unspecified complications (principal)

== ENCOUNTER → 2023-05-20 | Outpatient (CLI) | payer MEDICARE | LOC: M RAD 10:47 | PROVIDERS: ATTEND Nurse Practitioner Family | DX: N18.32 Chronic kidney disease, stage 3b (principal) ==

== ENCOUNTER → 2023-07-14 | Outpatient (REF) | payer MEDICARE ==
[2023-07-15 13:51] LABS: BASO # 0.1 10^3/uL (0.0-0.2); BASO % 0.6 % (0.0-1.0); EOS # 0.3 10^3/uL (0.0-0.5); EOS % 2.5 % (0.0-3.0); HEMOGLOBIN 15.1 g/dl (12.0-15.5); LYMPH # 2.3 10^3/uL (1.5-5.0); LYMPH % 20.1 % (24.0-44.0); MEAN CORPUSCULAR HEMOGLOBIN 33.2 pg (27.0-33.0); MEAN CORPUSCULAR HGB CONC 33.6 g/dl (32.0-36.5); MEAN CORPUSCULAR VOLUME 98.9 fl (80.0-96.0); MONO % 8.8 % (2.0-8.0); NEUTROPHILS # 7.8 10^3/uL (1.5-8.5); NEUTROPHILS % 67.8 % (36.0-66.0); PLATELET COUNT, AUTOMATED 321 10^3/uL (150-450); RED BLOOD COUNT 4.55 10^6/uL (4.00-5.40); WHITE BLOOD COUNT 11.5 10^3/uL (4.0-10.0)
[2023-07-15 14:28] LABS: CALCIUM LEVEL 10.1 MG/DL (8.3-10.6); CREATININE FOR GFR 1.64 MG/DL (0.55-1.30); GLOMERULAR FILTRATION RATE 32.5 (>39); POTASSIUM SERUM 4.1 MMOL/L (3.5-5.1); TOTAL PROTEIN 6.8 G/DL (5.7-8.2)
[2023-07-15 14:30] LABS: HEMOGLOBIN A1c 5.8 % (4.0-6.0)
[2023-07-15 14:31] LABS: FREE T4 1.24 NG/DL (0.89-1.76); THYROID STIMULATING HORMONE 2.066 uIU/ML (0.55-4.78)
== END ==
LOC: M SFHCCAPE 13:43
PROVIDERS: ATTEND Physician Assistant Medical
DX: L29.9 Pruritus, unspecified (principal); K21.9 Gastro-esophageal reflux disease without esophagitis; E11.8 Type 2 diabetes mellitus with unspecified complications

== ENCOUNTER → 2023-11-01 | Outpatient (REF) | payer MEDICARE ==
[2023-11-01 17:57] LABS: HEMOGLOBIN A1c 6.4 % (4.0-6.0)
[2023-11-01 18:01] LABS: CREATININE, URINE 69.2 MG/DL
[2023-11-01 18:02] LABS: ALBUMIN 3.9 G/DL (3.2-5.2); BILIRUBIN,TOTAL 0.9 MG/DL (0.3-1.2); CALCIUM LEVEL 10.2 MG/DL (8.3-10.6); CHOLESTEROL RISK RATIO 2.48 (<5); CREATININE FOR GFR 1.4 MG/DL (0.55-1.30); GLOMERULAR FILTRATION RATE 38.9 (>39); HDL CHOLESTEROL 56.7 MG/DL (>40); LDL CHOLESTEROL 55.7 MG/DL (<100); NON-HDL-C 84.3 MG/DL; POTASSIUM SERUM 3.9 MMOL/L (3.5-5.1); TOTAL PROTEIN 6.7 G/DL (5.7-8.2)
== END ==
LOC: M SFHCCAPE 08:30
PROVIDERS: ATTEND Physician Assistant Medical
DX: E11.8 Type 2 diabetes mellitus with unspecified complications (principal); E78.2 Mixed hyperlipidemia

== ENCOUNTER → 2024-02-10 | Outpatient (CLI) | payer MEDICARE | LOC: M WHC 13:42 | PROVIDERS: ATTEND Physician Assistant Medical | DX: Z12.31 Encounter for screening mammogram for malignant neoplasm of breast (principal) ==

== ENCOUNTER → 2024-02-29 | Outpatient (REF) | payer MEDICARE ==
[2024-02-29 17:38] LABS: BASO # 0.1 10^3/uL (0.0-0.2); BASO % 0.8 % (0.0-1.0); EOS # 0.3 10^3/uL (0.0-0.5); EOS % 3.4 % (0.0-3.0); HEMATOCRIT 47.4 % (36.0-47.0); HEMOGLOBIN 15.9 g/dl (12.0-15.5); LYMPH # 2.4 10^3/uL (1.5-5.0); MEAN CORPUSCULAR HEMOGLOBIN 33.1 pg (27.0-33.0); MEAN CORPUSCULAR HGB CONC 33.5 g/dl (32.0-36.5); MEAN CORPUSCULAR VOLUME 98.5 fl (80.0-96.0); MONO # 0.8 10^3/uL (0.0-0.8); MONO % 9.8 % (2.0-8.0); NEUTROPHILS # 4.1 10^3/uL (1.5-8.5); NEUTROPHILS % 53.6 % (36.0-66.0); PLATELET COUNT, AUTOMATED 335 10^3/uL (150-450); RED BLOOD COUNT 4.81 10^6/uL (4.00-5.40); WHITE BLOOD COUNT 7.6 10^3/uL (4.0-10.0)
[2024-02-29 18:11] LABS: HEMOGLOBIN A1c 5.9 % (4.0-6.0)
[2024-02-29 18:12] LABS: BILIRUBIN,TOTAL 1.2 MG/DL (0.3-1.2); CALCIUM LEVEL 10.3 MG/DL (8.3-10.6); CREATININE FOR GFR 1.77 MG/DL (0.55-1.30); GLOMERULAR FILTRATION RATE 29.7 (>39); POTASSIUM SERUM 4.1 MMOL/L (3.5-5.1); TOTAL PROTEIN 6.8 G/DL (5.7-8.2)
[2024-02-29 18:16] LABS: THYROID STIMULATING HORMONE 2.417 uIU/ML (0.55-4.78)
[2024-02-29 18:17] LABS: FREE T4 1.52 NG/DL (0.89-1.76)
== END ==
LOC: M SFHCCAPE 08:07
PROVIDERS: ATTEND Physician Assistant Medical
DX: E03.9 Hypothyroidism, unspecified (principal); I10 Essential (primary) hypertension; E11.8 Type 2 diabetes mellitus with unspecified complications

== ENCOUNTER → 2024-07-04 | Outpatient (REF) | payer MEDICARE ==
[2024-07-04 17:55] LABS: BASO # 0.1 10^3/uL (0.0-0.2); EOS # 0.4 10^3/uL (0.0-0.5); EOS % 4.8 % (0.0-3.0); HEMATOCRIT 46.4 % (36.0-47.0); HEMOGLOBIN 15.4 g/dl (12.0-15.5); LYMPH # 2.3 10^3/uL (1.5-5.0); LYMPH % 31.4 % (24.0-44.0); MEAN CORPUSCULAR HGB CONC 33.2 g/dl (32.0-36.5); MEAN CORPUSCULAR VOLUME 99.6 fl (80.0-96.0); MONO # 0.9 10^3/uL (0.0-0.8); MONO % 12.1 % (2.0-8.0); NEUTROPHILS # 3.7 10^3/uL (1.5-8.5); NEUTROPHILS % 50.3 % (36.0-66.0); PLATELET COUNT, AUTOMATED 304 10^3/uL (150-450); RED BLOOD COUNT 4.66 10^6/uL (4.00-5.40); WHITE BLOOD COUNT 7.4 10^3/uL (4.0-10.0)
[2024-07-04 18:16] LABS: HEMOGLOBIN A1c 5.7 % (4.0-6.0)
[2024-07-04 18:22] LABS: ALBUMIN 3.9 G/DL (3.2-5.2); BILIRUBIN,TOTAL 1.2 MG/DL (0.3-1.2); CALCIUM LEVEL 12.2 MG/DL (8.3-10.6); CREATININE FOR GFR 1.73 MG/DL (0.55-1.30); GLOMERULAR FILTRATION RATE 30.5 (>39)
[2024-07-04 18:23] LABS: FREE T4 1.51 NG/DL (0.89-1.76); THYROID STIMULATING HORMONE 2.359 uIU/ML (0.55-4.78)
== END ==
LOC: M SFHCCAPE 08:05
PROVIDERS: ATTEND Physician Assistant Medical
DX: E11.8 Type 2 diabetes mellitus with unspecified complications (principal); E03.9 Hypothyroidism, unspecified; F41.9 Anxiety disorder, unspecified; D58.2 Other hemoglobinopathies; N18.4 Chronic kidney disease, stage 4 (severe)

== ENCOUNTER → 2024-10-25 | Outpatient (CLI) | payer MEDICARE ==
[~2024-10-25] MED LIST changes: -CYCL5TAB PO; +CYCL5TAB4 PO
== END ==
LOC: M EKG 14:42
PROVIDERS: ATTEND Registered Nurse
DX: I48.21 Permanent atrial fibrillation (principal)

== ENCOUNTER → 2024-11-20 | Outpatient (REF) | payer MEDICARE ==
[2024-11-20 17:39] LABS: BASO # 0.1 10^3/uL (0.0-0.2); BASO % 0.8 % (0.0-1.0); EOS # 0.3 10^3/uL (0.0-0.5); HEMOGLOBIN 14.6 g/dl (12.0-15.5); LYMPH % 30.7 % (24.0-44.0); MEAN CORPUSCULAR HEMOGLOBIN 32.9 pg (27.0-33.0); MEAN CORPUSCULAR HGB CONC 33.2 g/dl (32.0-36.5); MEAN CORPUSCULAR VOLUME 99.1 fl (80.0-96.0); MONO # 0.8 10^3/uL (0.0-0.8); MONO % 11.6 % (2.0-8.0); NEUTROPHILS # 3.4 10^3/uL (1.5-8.5); NEUTROPHILS % 51.6 % (36.0-66.0); PLATELET COUNT, AUTOMATED 312 10^3/uL (150-450); RED BLOOD COUNT 4.44 10^6/uL (4.00-5.40); WHITE BLOOD COUNT 6.6 10^3/uL (4.0-10.0)
[2024-11-20 17:42] LABS: ALBUMIN 3.8 G/DL (3.2-5.2); BILIRUBIN,TOTAL 1.4 MG/DL (0.3-1.2); CALCIUM LEVEL 9.9 MG/DL (8.3-10.6); CHOLESTEROL RISK RATIO 3.1 (<5); CREATININE FOR GFR 1.57 MG/DL (0.55-1.30); HDL CHOLESTEROL 44.1 MG/DL (>40); LDL CHOLESTEROL 64.7 MG/DL (<100); NON-HDL-C 92.9 MG/DL; POTASSIUM SERUM 3.8 MMOL/L (3.5-5.1); THYROID STIMULATING HORMONE 0.098 uIU/ML (0.55-4.78); TOTAL PROTEIN 6.6 G/DL (5.7-8.2)
[2024-11-20 17:43] LABS: FREE T4 2.11 NG/DL (0.89-1.76)
[2024-11-20 17:48] LABS: HEMOGLOBIN A1c 5.5 % (4.0-6.0)
== END ==
LOC: M SFHCCAPE 08:10
PROVIDERS: ATTEND Physician Assistant Medical
DX: I48.91 Unspecified atrial fibrillation (principal); E11.8 Type 2 diabetes mellitus with unspecified complications; E03.9 Hypothyroidism, unspecified; E78.2 Mixed hyperlipidemia

== ENCOUNTER → 2024-11-24 | Outpatient (CLI) | payer MEDICARE | LOC: M CARPUL 09:38 | PROVIDERS: ATTEND Registered Nurse | DX: I08.0 Rheumatic disorders of both mitral and aortic valves (principal); I27.20 Pulmonary hypertension, unspecified ==

== ENCOUNTER → 2024-12-19 | Outpatient (REF) | payer MEDICARE ==
[2024-12-19 18:14] LABS: THYROID STIMULATING HORMONE 0.146 uIU/ML (0.55-4.78)
[2024-12-19 18:15] LABS: FREE T4 1.88 NG/DL (0.89-1.76)
== END ==
LOC: M SFHCCAPE 08:06
PROVIDERS: ATTEND Physician Assistant Medical
DX: E03.9 Hypothyroidism, unspecified (principal)

== ENCOUNTER → 2024-12-22 | Outpatient (CLI) | payer MEDICARE | LOC: M RAD 07:43 | PROVIDERS: ATTEND Physician Assistant Medical | DX: R17 Unspecified jaundice (principal); N28.1 Cyst of kidney, acquired ==

== ENCOUNTER 2025-01-26 15:16 | Emergency (ER) | payer MEDICARE ==
[~2025-01-26] VITALS: Ht 157.5 cm; Wt 66.9 kg
[2025-01-26] MEDS: DERMABOND TOPICAL SKIN ADHESIVE TOP ONE (17:40)
[2025-01-26] MEDS ORDERED: BACI500O8 TOP (17:42)
[2025-01-26] MEDS: BOOSTRIX VACCINE (TETANUS/DIPHTH/ACEL. PERTUSSIS) 0.5ML SYR IM.IMMUN ONE (18:04)
[2025-01-26 18:21] VITALS: BP 140/73; TEMP 97; O2SAT 100
== END 2025-01-26 18:30 | disposition home or self-care (01) ==
LOC: M ED 15:16
DX: S01.81XA Laceration without foreign body of other part of head, initial encounter (principal); S60.921A Unspecified superficial injury of right hand, initial encounter; Y92.019 Unspecified place in single-family (private) house as the place of occurrence of the external cause; Y93.9 Activity, unspecified; Y99.9 Unspecified external cause status; W28.XXXA Contact with powered lawn mower, initial encounter; E11.9 Type 2 diabetes mellitus without complications; E78.5 Hyperlipidemia, unspecified; E03.9 Hypothyroidism, unspecified; I12.9 Hypertensive chronic kidney disease with stage 1 through stage 4 chronic kidney disease, or unspecified chronic kidney disease; Z23 Encounter for immunization; Z88.1 Allergy status to other antibiotic agents; Z88.2 Allergy status to sulfonamides; Z88.5 Allergy status to narcotic agent; Z88.8 Allergy status to other drugs, medicaments and biological substances

== ENCOUNTER → 2025-08-27 | Outpatient (REF) | payer MEDICARE ==
[2025-08-27 18:43] LABS: FREE T4 1.49 NG/DL (0.89-1.76)
[2025-08-27 18:45] LABS: ALT/SGPT 17.0 U/L (7.0-40); AST/SGOT 28.0 U/L (<34); CALCIUM LEVEL 9.9 MG/DL (8.3-10.6); CARBON DIOXIDE LEVEL 28.0 MMOL/L (20-31); CHLORIDE LEVEL 103.0 MMOL/L (98-107); CREATININE FOR GFR 1.38 MG/DL (0.55-1.30); GLOMERULAR FILTRATION RATE 39.2 (>39); POTASSIUM SERUM 4.1 MMOL/L (3.5-5.1); SODIUM LEVEL 142.0 MMOL/L (136-145)
[2025-08-27 19:31] LABS: ESTIMATED AVERAGE GLUCOSE 108.0 MG/DL (60-110)
== END ==
LOC: M SFHCCAPE 08:48
PROVIDERS: ATTEND Physician Assistant Medical
DX: E11.8 Type 2 diabetes mellitus with unspecified complications (principal); E03.9 Hypothyroidism, unspecified

== ENCOUNTER → 2025-09-11 | Outpatient (CLI) | payer MEDICARE | LOC: M RAD 10:15 | PROVIDERS: ATTEND Physician Assistant Medical | DX: R91.8 Other nonspecific abnormal finding of lung field (principal) ==